=== PATIENT | female | born 1950 | race Caucasian/White ===

== ENCOUNTER 2017-12-13 20:04 | Inpatient (IN) | payer BC, MEDICARE ==
--- NOTE | 2017-12-13 21:16 | ED PDOC ---
Arrival/HPI <Galen Colón - Last Filed: 12/13/17 21:52> - General Historian: Patient <Criselda Vazquez - Last Filed: 12/14/17 02:01> - General Chief Complaint: Body Fluid Exposure Time Seen by Provider: 12/13/17 20:33 - History of Present Illness Narrative History of Present Illness (Text): 12/13/17 21:04 67yo female with PMHx of diabetes present with one week history generalized body aches, generalize weakness, headache, subjective fever, nonproductive cough. Notes that she took Theraflu yesterday and today. She denies nausea, vomiting, diarrhea, abdominal pain, chest pain, SOB, diaphoresis, urinary symptoms, sore throat, neck pain, sick contact, travel. (Criselda Vazquez) Past Medical History - Provider Review Nursing Documentation Reviewed: Yes - Infectious Disease Hx of Infectious Diseases: None - Tetanus Immunization Tetanus Immunization: Unknown - Cardiac Hx Cardiac Disorders: Yes Other/Comment: "weak heart muscle" as per dr owens - Pulmonary Hx Respiratory Disorders: No - Neurological Hx Neurological Disorder: Yes (diabetic neuropathy) - HEENT Hx HEENT Disorder: No - Renal Hx Renal Disorder: No - Endocrine/Metabolic Hx Endocrine Disorders: Yes Hx Diabetes Mellitus Type 2: Yes (iddm) - Hematological/Oncological Hx Blood Transfusions: No Hx Blood Transfusion Reaction: (NA) - Integumentary Hx Dermatological Disorder: No - Musculoskeletal/Rheumatological Hx Musculoskeletal Disorders: No - Gastrointestinal Hx Gastrointestinal Disorders: Yes Hx Colitis: Yes Other/Comment: endoscopy with colon biopsy, hemorrhoids - Genitourinary/Gynecological Hx Genitourinary Disorders: No - Psychiatric Hx Psychophysiologic Disorder: No Hx Substance Use: No - Surgical History Hx Section: Yes - Anesthesia Hx Anesthesia Reactions: No Hx Malignant Hyperthermia: No - Suicidal Assessment Feels Threatened In Home Enviroment: No <Criselda Vazquez - Last Filed: 12/14/17 02:01> Family/Social History - Physician Review Nursing Documentation Reviewed: Yes Family/Social History: Unknown Family HX Smoking Status: Never Smoked Hx Alcohol Use: No Hx Substance Use: No Hx Substance Use Treatment: No <Criselda Vazquez A - Last Filed: 12/14/17 02:01> Allergies/Home Meds <Galen Colón - Last Filed: 12/13/17 21:52> <[email or web address] A - Last Filed: 12/14/17 02:01> Allergies/Adverse Reactions: Allergies Penicillins Allergy (Verified 12/13/17 20:21) RASH vancomycin Allergy (Verified 12/13/17 20:21) RASH levofloxacin [From Levaquin] Adverse Reaction (Verified 12/13/17 20:21) SHORTNESS OF BREATH Home Medications: Home Meds Medication Instructions Recorded Confirmed MetFORMIN [glucOPHAGE] 1,000 mg PO BID 12/13/17 12/13/17 Review of Systems - Physician Review All systems were reviewed & negative as marked: Yes - Review of Systems Constitutional: Fatigue, Fevers Eyes: Normal ENT: Normal Respiratory: Cough. absent: Sputum, Wheezing Cardiovascular: Normal Gastrointestinal: Normal Genitourinary Female: Normal Musculoskeletal: Normal Skin: Normal Neurological: Normal Endocrine: Normal Hemo/Lymphatic: Normal Psychiatric: Normal <[email or web address] A - Last Filed: 12/14/17 02:01> Physical Exam Vital Signs Reviewed: Yes Temperature: Afebrile Blood Pressure: Normal Pulse: Regular Respiratory Rate: Normal Appearance: Positive for: Well-Appearing, Non-Toxic, Comfortable Pain Distress: None Mental Status: Positive for: Alert and Oriented X 3 - Systems Exam Head: Present: Atraumatic, Normocephalic Pupils: Present: PERRL Extroacular Muscles: Present: EOMI Conjunctiva: Present: Normal Mouth: Present: Moist Mucous Membranes Neck: Present: Normal Range of Motion Respiratory/Chest: Present: Clear to Auscultation, Good Air Exchange. No: Respiratory Distress, Accessory Muscle Use, Wheezes, Decreased Breath Sounds, Rales, Retracting, Rhonchi Cardiovascular: Present: Regular Rate and Rhythm, Normal S1, S2. No: Murmurs Abdomen: Present: Normal Bowel Sounds. No: Tenderness, Distention, Peritoneal Signs Back: Present: Normal Inspection Upper Extremity: Present: Normal Inspection. No: Cyanosis, Edema Lower Extremity: Present: Normal Inspection. No: Edema Neurological: Present: GCS=15, CN II-XII Intact, Speech Normal Skin: Present: Warm, Dry, Normal Color. No: Rashes Psychiatric: Present: Alert, Oriented x 3, Normal Insight, Normal Concentration <DiruGoogle A - Last Filed: 12/14/17 02:01> Vital Signs Temp Pulse Resp BP Pulse Ox 12/14/17 01:25 98.1 F 92 H 22 119/67 96 12/14/17 00:25 97.9 F 93 H 16 120/65 96 12/14/17 00:05 91 H 18 120/65 98 12/13/17 23:47 93 H 18 125/78 98 12/13/17 20:22 97.7 F 89 18 124/61 97 Medical Decision Making <Galen Colón - Last Filed: 12/13/17 21:52> <Criselda Vazquez - Last Filed: 12/14/17 02:01> ED Course and Treatment: 12/14/17 01:55 PT in ED for stated history. She was in DKA. Calculated AG is 12. Leukocytosis was noted. Hyponatremia, hyperkalemia and hyperglycemia noted. PT was hydrated with NS. She have no EKG changes and kayexlate and insulin was given. Hyperkalemia was likely secondary to pt's DKA. EKG NSR # 88bpm CXR NAD Blood culture, urine culture pending PT was seen by the bedside by the intensivit and he accepted pt for admission to the ICU HE will start pt on insulin drip Dr. Colón DC with Dr. Proctor and pt was admitted Result and plan was DW the pt and she agreed. (Criselda Vazquez) - Lab Interpretations Lab Results: 12/13/17 21:26 12/13/17 21:26 Lab Results 12/14/17 00:38: POC Glucose (mg/dL) 258 H 12/13/17 23:30: POC Glucose (mg/dL) 279 H 12/13/17 22:49: pO2 25 L, VBG pH 7.09 L*, VBG pCO2 39.0 L, VBG HCO3 11.8 L, VBG Total CO2 13.0 L, VBG O2 Sat (Calc) 54.6, VBG Base Excess -17.3 L, VBG Potassium 6.8 H*, Lactate 1.6, FiO2 21.0, Sodium 128.0 L, Chloride 92.0 L, Venous Blood Potassium 6.8 H* 12/13/17 21:26: Sodium 128 L, Potassium 6.1 H* D, Chloride 98, Carbon Dioxide 11 L, Anion Gap 25 H, BUN 21, Creatinine 0.8, Est GFR ( Amer) > 60, Est GFR (Non-Af Amer) > 60, Random Glucose 485 H* D, Calcium 9.5, Magnesium 2.4 H, Total Bilirubin 0.7, AST 18, ALT 22, Alkaline Phosphatase 89, Lactate Dehydrogenase 393, Total Creatine Kinase 73, Troponin I < 0.01, Total Protein 7.7, Albumin 4.1, Globulin 3.7, Albumin/Globulin Ratio 1.1, Lipase 54 12/13/17 21:26: PT 10.9, INR 0.96, APTT 22.4 L 12/13/17 21:26: WBC 15.3 H D, RBC 4.72, Hgb 13.7, Hct 41.2, MCV 87.3, MCH 29.0, MCHC 33.3, RDW 12.5, Plt Count 260, MPV 10.1, Gran % 84.9 H, Lymph % (Auto) 7.0 L, [place] % (Auto) 8.0 H, Eos % (Auto) 0.0 L, Baso % (Auto) 0.1, Gran # 13.00 H, Lymph # 1.1 L, [place] # 1.2 H, Eos # 0.0, Baso # 0.02 12/13/17 20:20: Influenza Typ A,B (EIA) Negative for flu a/b - RAD Interpretation Radiology Orders: 12/13/17 20:42 CHEST PORTABLE [RAD] Stat 12/13/17 23:52 HEAD W/O CONTRAST [CT] Stat - Medication Orders Current Medication Orders: Acetaminophen (Tylenol 325mg Tab) 650 mg PO Q4 PRN PRN Reason: Pain, severe (8-10) Aspirin (Aspirin Chewable) 81 mg PO DAILY [facility] Heparin Sodium (Porcine) (Heparin) 5,000 units SC Q12H DANIELA PRN Reason: Protocol Insulin Human Regular 100 (units/ Sodium Chloride) 100 mls @ 5 mls/hr IV .Q20H PRN; Protocol; 5 UNITS/HR PRN Reason: TITRATE PER MD ORDER Last Titration: 12/14/17 01:39 Dose: 2 units/hr, 2 mls/hr Titration Intervention Document 12/14/17 01:39 DORA (Rec: 12/14/17 01:39 DORA [id number]) Titration Intake Titration Intake 0 Cumulative Intake 10 Cumulative Intake (Rx) 10 Waste Amount 0 Container Volume 90 Titration Dosing Titration Dose 2 IV Rate 2 Intake/Decrease Decreased Cumulative Dose 10 Sodium Chloride (Sodium Chloride 0.9%) 1,000 mls @ 200 mls/hr IV .Q5H [facility] Last Admin: 12/14/17 00:40 Dose: 200 mls/hr eMAR Start Stop Document 12/14/17 00:40 JOL (Rec: 12/14/17 01:10 [id number] Intravenous Solution Start Date 12/14/17 Start Time 00:40 Pantoprazole Sodium (Protonix Inj) 40 mg IVP DAILY DANIELA Senna/Docusate Sodium (Senokot S 50 Mg-8.6 Mg) 1 tab PO Q8 PRN PRN Reason: Constipation Discontinued Medications Acetaminophen (Tylenol 325mg Tab) 650 mg PO STAT STA Stop: 12/13/17 22:21 Last Admin: 12/13/17 22:41 Dose: 650 mg [facility] Pain/Vitals Document 12/13/17 22:41 JOL (Rec: 12/13/17 22:41 [id number] Pain Reassessment Is This A Pain ReAssessment? No Sleep Is patient sleeping during reassessment? No Presence of Pain Presence of Pain Yes Pain Scale Used Pain Scale Used Numeric Location Pain Location Body Site Generalized Re-Assess: [facility] Pain/Vitals Document 12/13/17 23:41 JOL (Rec: 12/14/17 01:11 [id number] Pain Reassessment Is This A Pain ReAssessment? Yes Sleep Is patient sleeping during reassessment? No Presence of Pain Presence of Pain No Sodium Chloride (Sodium Chloride 0.9%) 1,000 mls @ 999 mls/hr IV .Q1H1M STA Stop: 12/13/17 23:06 Last Admin: 12/13/17 22:40 Dose: 999 mls/hr eMAR Start Stop Document 12/13/17 22:40 JOL (Rec: 12/13/17 22:40 [id number] Intravenous Solution Start Date 12/13/17 Start Time 22:40 End Date 12/13/17 End time 23:41 Total Infusion Time 61 Sodium Chloride (Sodium Chloride 0.9%) 1,000 mls @ 150 mls/hr IV .Q6H40M DANIELA Sodium Chloride (Sodium Chloride 0.9%) 1,000 mls @ 999 mls/hr IV .Q1H1M STA Stop: 12/14/17 00:22 Last Admin: 12/13/17 23:25 Dose: 999 mls/hr eMAR Start Stop Document 12/13/17 23:25 JOL (Rec: 12/14/17 01:10 [id number] Intravenous Solution Start Date 12/13/17 Start Time 23:25 End Date 12/14/17 End time 00:26 Total Infusion Time 61 Insulin Human Regular (Humulin R Med) 10 units IV ONCE STA PRN Reason: Protocol Stop: 12/13/17 22:16 Last Admin: 12/13/17 22:40 Dose: 10 units eMAR Start Stop Document 12/13/17 22:40 JOL (Rec: 12/13/17 22:41 [id number]) Intravenous Solution Start Date 12/13/17 Start Time 22:41 MAR Blood Glucose Document 12/13/17 22:40 JOL (Rec: 12/13/17 22:41 [id number]) Blood Glucose Finger Stick Blood Glucose (70-120) 485 Sodium Polystyrene Sulfonate (Kayexalate Susp) 30 gm PO STAT STA Stop: 12/13/17 22:10 Last Admin: 12/13/17 22:40 Dose: 30 gm - PA / INSURANCE SALES EXECUTIVE / Resident Statement RACHELL has reviewed & agrees with the documentation as recorded. RACHELL has examined the patient and agrees with the treatment plan. <Galen Colón - Last Filed: 12/13/17 21:52> Disposition/Present on Arrival <Galen Colón - Last Filed: 12/13/17 21:52> - Present on Arrival Any Indicators Present on Arrival: No History of DVT/PE: No History of Uncontrolled Diabetes: Yes Urinary Catheter: No History of Decub. Ulcer: No History Surgical Site Infection Following: None - Disposition Have Diagnosis and Disposition been Completed?: Yes Disposition Time: 23:00 Patient Plan: Admission <Criselda Vazquez - Last Filed: 12/14/17 02:01> - Disposition Diagnosis: DKA (diabetic ketoacidosis), Hyperglycemia, Leukocytosis, Hyponatremia Disposition: HOSPITALIZED Patient Problems: Current Active Problems Problem Status Onset DKA (diabetic ketoacidosis) Acute Hyperglycemia Acute Leukocytosis Acute Condition: FAIR
[2017-12-13 21:50] LABS: BASO # 0.02 [, K/mm3] (0.0-2.0); BASO % 0.1 % (0.0-3.0); GRAN % 84.9 % (50.0-68.0); HEMOGLOBIN 13.7 g/dL (12.0-16.0); LYMPH # 1.1 (1.2-3.4); MEAN CELL VOLUME 87.3 fl (80.0-105.0); MEAN CORPUSCULAR HGB CONC 33.3 g/dl (31.0-37.0); MEAN PLATELET VOLUME 10.1 fl (7.0-11.0); MONO # 1.2 (0.1-0.6); RBC 4.72 [, 10^6/uL] (3.5-6.1); RED CELL DISTRIBUTION WIDTH 12.5 % (11.5-14.5); WHITE BLOOD COUNT 15.3 [, 10^3/ul] (4.5-11.0)
[2017-12-13 21:56] LABS: INR 0.96 (0.93-1.08); PARTIAL THROMBOPLASTIN TIME 22.4 Seconds (25.1-36.5); PROTHROMBIN TIME 10.9 SECONDS (9.4-12.5)
[2017-12-13 22:00] LABS: ALB/GLOB RATIO 1.1 (1.1-1.8); ALBUMIN 4.1 g/dL (3.0-4.8); ALT/SGPT 22 U/L (7-56); AST/SGOT 18 U/L (14-36); BLOOD UREA NITROGEN 21 mg/dL (7-21); CALCIUM 9.5 mg/dL (8.4-10.5); GFR AFRICAN-AMERICAN > 60; GFR NON-AFRICAN AMERICAN > 60; LIPASE 54 U/L (23-300); MAGNESIUM 2.4 mg/dL (1.7-2.2)
[2017-12-13 22:03] LABS: TROPONIN I < 0.01 ng/mL
[2017-12-13] MEDS ORDERED: Sodium Chloride 0.9% 1,000 ML IV STA ×2 (22:06→23:22)
[2017-12-13] MEDS ORDERED: Sod Polystyrene Sulf 15 gm/60 ml Susp PO STA (22:09)
[2017-12-13] MEDS ORDERED: Insulin Reg-MEDIUM-Coverage IV STA (22:15)
[2017-12-13] MEDS ORDERED: Insulin Regular 1 UNITS/0.01 ML ML ONE (22:34)
[2017-12-13] MEDS ORDERED: Sodium Bicarbonate 8.4% 50 MEQ in Dextrose 5% In Water 1,000 ML IV STA (22:36)
[2017-12-13 23:00] LABS: VENOUS BLOOD GAS BASE EXCESS -17.3 mmol/L (0.0-2.0); VENOUS BLOOD GAS PO2 25 mm/Hg (30-55)
[2017-12-13] MEDS ORDERED: Insulin Regular 100 UNITS in Sodium Chloride 0.9% 99 ML IV PRN (23:01)
[2017-12-13 23:03] LABS: VENOUS BLOOD PH 7.09 (7.32-7.43)
[2017-12-13] MEDS ORDERED: Sodium Chloride 0.9% 1,000 ML IV SCH ×2 (23:15→23:17)
--- NOTE | 2017-12-13 23:28 | CP.PCM.HP ---
Past Patient History - Infectious Disease Hx of Infectious Diseases: None - Tetanus Immunizations Tetanus Immunization: Unknown - Past Social History Smoking Status: Never Smoked - CARDIAC Hx Cardiac Disorders: Yes Other/Comment: "weak heart muscle" as per dr owens - PULMONARY Hx Respiratory Disorders: No - NEUROLOGICAL Hx Neurological Disorder: Yes (diabetic neuropathy) - HEENT Hx HEENT Problems: No - RENAL Hx Chronic Kidney Disease: No - ENDOCRINE/METABOLIC Hx Endocrine Disorders: Yes Hx Diabetes Mellitus Type 2: Yes (iddm) - HEMATOLOGICAL/ONCOLOGICAL Hx Blood Transfusions: No Hx Blood Transfusion Reaction: (NA) - INTEGUMENTARY Hx Dermatological Problems: No - MUSCULOSKELETAL/RHEUMATOLOGICAL Hx Musculoskeletal Disorders: No - GASTROINTESTINAL Hx Gastrointestinal Disorders: Yes Hx Colitis: Yes Other/Comment: endoscopy with colon biopsy, hemorrhoids - GENITOURINARY/GYNECOLOGICAL Hx Genitourinary Disorders: No - PSYCHIATRIC Hx Psychophysiologic Disorder: No Hx Substance Use: No - SURGICAL HISTORY Hx Section: Yes - ANESTHESIA Hx Anesthesia Reactions: No Hx Malignant Hyperthermia: No Meds Allergies/Adverse Reactions: Allergies Allergy/AdvReac Type Severity Reaction Status Date / Time Penicillins Allergy RASH Verified 12/13/17 20:21 vancomycin Allergy RASH Verified 12/13/17 20:21 levofloxacin [From Levaquin] AdvReac SHORTNESS Verified 12/13/17 20:21 OF BREATH Results - Vital Signs Recent Vital Signs: Last Vital Signs Temp 97.7 F 12/13/17 20:22 Pulse 89 12/13/17 20:22 Resp 18 12/13/17 20:22 BP 124/61 12/13/17 20:22 Pulse Ox 97 12/13/17 20:22 - Labs Result Diagrams: 12/13/17 21:26 12/13/17 21:26 Labs: Laboratory Results - last 24 hr 12/13/17 12/13/17 12/13/17 20:20 21:26 21:26 WBC 15.3 H D RBC 4.72 Hgb 13.7 Hct 41.2 MCV 87.3 MCH 29.0 MCHC 33.3 RDW 12.5 Plt Count 260 MPV 10.1 Gran % 84.9 H Lymph % (Auto) 7.0 L [place] % (Auto) 8.0 H Eos % (Auto) 0.0 L Baso % (Auto) 0.1 Gran # 13.00 H Lymph # 1.1 L [place] # 1.2 H Eos # 0.0 Baso # 0.02 PT 10.9 INR 0.96 APTT 22.4 L pO2 VBG pH VBG pCO2 VBG HCO3 VBG Total CO2 VBG O2 Sat (Calc) VBG Base Excess VBG Potassium Lactate FiO2 Sodium Potassium Chloride Carbon Dioxide Anion Gap BUN Creatinine Est GFR ( Amer) Est GFR (Non-Af Amer) Random Glucose Calcium Magnesium Total Bilirubin AST ALT Alkaline Phosphatase Lactate Dehydrogenase Total Creatine Kinase Troponin I Total Protein Albumin Globulin Albumin/Globulin Ratio Lipase Venous Blood Potassium Influenza Typ A,B (EIA) Negative for flu a/b 12/13/17 12/13/17 21:26 22:49 WBC RBC Hgb Hct MCV MCH MCHC RDW Plt Count MPV Gran % Lymph % (Auto) [place] % (Auto) Eos % (Auto) Baso % (Auto) Gran # Lymph # [place] # Eos # Baso # PT INR APTT pO2 25 L VBG pH 7.09 L* VBG pCO2 39.0 L VBG HCO3 11.8 L VBG Total CO2 13.0 L VBG O2 Sat (Calc) 54.6 VBG Base Excess -17.3 L VBG Potassium 6.8 H* Lactate 1.6 FiO2 21.0 Sodium 128 L 128.0 L Potassium 6.1 H* D Chloride 98 92.0 L Carbon Dioxide 11 L Anion Gap 25 H BUN 21 Creatinine 0.8 Est GFR ( Amer) > 60 Est GFR (Non-Af Amer) > 60 Random Glucose 485 H* D Calcium 9.5 Magnesium 2.4 H Total Bilirubin 0.7 AST 18 ALT 22 Alkaline Phosphatase 89 Lactate Dehydrogenase 393 Total Creatine Kinase 73 Troponin I < 0.01 Total Protein 7.7 Albumin 4.1 Globulin 3.7 Albumin/Globulin Ratio 1.1 Lipase 54 Venous Blood Potassium 6.8 H* Influenza Typ A,B (EIA)
--- NOTE | 2017-12-13 23:45 | CP.PCM.CON ---
<Hugo Guzman - Last Filed: 12/13/17 23:29> History of Present Illness - History of Present Illness History of Present Illness: ICU Consult Note for Dr. Cleopatra Guzman, PGY-2 IM Consulted for: DKA HPI: This is a 67 yo [place] F with PMH of DM and HLD who presents with complaint of malaise, headache, weakness, constipation, and urinary frequency for 1 week, as well as a syncopal episode at home today. She was found to have blood glucose of 485 and anion gap of 19. As per patient and sons at bedside, patient was at home cooking, and suddenly felt herself sliding to the floor. As per sons, no head trauma. Patient reports having stopped taking her insulin approx 1 month prior, due to it making her sugars run low and making her diaphoretic. When asked how low her sugars went, patient reports around 180's. She continued taking her metformin and januvia, believing it to be enough. Did not discuss with her PMD, as she reports unable to see him recently due to relocating his office. Denies similar episode or symptoms in the past. Also reports episode of emesis today after attempting to drink prune juice to attempt to make herself have a bowel movement (constipated x3-4 days). Otherwise has no appetite, and reports frequent burps and acid reflux symptoms. Denies chest pain, shortness of breath, hematemesis, diarrhea, hematuria, dysuria, focal weakness, or other falls. All other ROS in 12-system review negative. PMH: HLD, DM, "weak heart muscle" as per prior PMD; hx of CAD and medication non -compliance as per charting by PMD (Dr. Proctor) during prior admissions PSH: denies, but hx of noted in charting from prior admissions Family Hx: Diabetes and HLD in multiple 1st degree relatives (both parents, multiple siblings), no reported history of [place] Social Hx: denies tobacco, alcohol, illicits PMD: Dr. Proctor Review of Systems - Review of Systems All systems: reviewed and no additional remarkable complaints except (as per HPI ) Past Patient History - Infectious Disease Hx of Infectious Diseases: None - Tetanus Immunizations Tetanus Immunization: Unknown - Past Social History Smoking Status: Never Smoked - CARDIAC Hx Cardiac Disorders: Yes Other/Comment: "weak heart muscle" as per dr owens - PULMONARY Hx Respiratory Disorders: No - NEUROLOGICAL Hx Neurological Disorder: Yes (diabetic neuropathy) - HEENT Hx HEENT Problems: No - RENAL Hx Chronic Kidney Disease: No - ENDOCRINE/METABOLIC Hx Endocrine Disorders: Yes Hx Diabetes Mellitus Type 2: Yes (iddm) - HEMATOLOGICAL/ONCOLOGICAL Hx Blood Transfusions: No Hx Blood Transfusion Reaction: (NA) - INTEGUMENTARY Hx Dermatological Problems: No - MUSCULOSKELETAL/RHEUMATOLOGICAL Hx Musculoskeletal Disorders: No - GASTROINTESTINAL Hx Gastrointestinal Disorders: Yes Hx Colitis: Yes Other/Comment: endoscopy with colon biopsy, hemorrhoids - GENITOURINARY/GYNECOLOGICAL Hx Genitourinary Disorders: No - PSYCHIATRIC Hx Psychophysiologic Disorder: No Hx Substance Use: No - SURGICAL HISTORY Hx Section: Yes - ANESTHESIA Hx Anesthesia Reactions: No Hx Malignant Hyperthermia: No Meds Allergies/Adverse Reactions: Allergies Allergy/AdvReac Type Severity Reaction Status Date / Time Penicillins Allergy RASH Verified 12/13/17 20:21 vancomycin Allergy RASH Verified 12/13/17 20:21 levofloxacin [From Levaquin] AdvReac SHORTNESS Verified 12/13/17 20:21 OF BREATH - Medications Medications: Current Medications Acetaminophen (Tylenol 325mg Tab) 650 mg PO Q4 PRN PRN Reason: Pain, severe (8-10) Aspirin (Aspirin Chewable) 81 mg PO DAILY [facility] Heparin Sodium (Porcine) (Heparin) 5,000 units SC Q12H DANIELA PRN Reason: Protocol Insulin Human Regular 100 (units/ Sodium Chloride) 100 mls @ 5 mls/hr IV .Q20H PRN; Protocol; 5 UNITS/HR PRN Reason: TITRATE PER MD ORDER Sodium Chloride (Sodium Chloride 0.9%) 1,000 mls @ 200 mls/hr IV .Q5H [facility] Sodium Chloride (Sodium Chloride 0.9%) 1,000 mls @ 999 mls/hr IV .Q1H1M STA Stop: 12/14/17 00:22 Pantoprazole Sodium (Protonix Inj) 40 mg IVP DAILY [facility] Senna/Docusate Sodium (Senokot S 50 Mg-8.6 Mg) 1 tab PO Q8 PRN PRN Reason: Constipation Physical Exam - Constitutional Appears: Non-toxic, No Acute Distress Additional comments: Ill-appearing, fatigued - Head Exam Head Exam: ATRAUMATIC, NORMAL INSPECTION, NORMOCEPHALIC - Eye Exam Eye Exam: EOMI, Normal appearance. absent: Conjunctival injection, Scleral icterus Pupil Exam: absent: Irregular, Unequal - ENT Exam ENT Exam: Mucous Membranes Dry - Neck Exam Neck exam: Positive for: Full Rom, Normal Inspection - Respiratory Exam Respiratory Exam: Clear to Auscultation Bilateral, NORMAL BREATHING PATTERN. absent: Accessory Muscle Use, Chest Wall Tenderness, Decreased Breath Sounds, Rales, Rhonchi, Wheezes - Cardiovascular Exam Cardiovascular Exam: REGULAR RHYTHM, RRR, +S1, +S2. absent: Bradycardia, Tachycardia, Irregular Rhythm, JVD, +S4 - GI/Abdominal Exam GI & Abdominal Exam: Normal Bowel Sounds, Soft, Tenderness (mild tenderness to palpation diffusely). absent: Diminished Bowel Sounds, Distended, Firm, Hyperactive Bowel Sounds, Hypoactive Bowel Sounds, Rigid - Rectal Exam Rectal Exam: Deferred - Extremities Exam Extremities exam: Positive for: normal capillary refill, normal inspection, pedal pulses present. Negative for: calf tenderness, pedal edema, tenderness - Neurological Exam Additional comments: awake and alert, following all commands appropriately, moving all extremities spontaneously motor grossly intact and equal bilaterally - Psychiatric Exam Psychiatric exam: Normal Affect, Normal Mood - Skin Skin Exam: Dry, Intact, Normal Color, Warm Results - Vital Signs Recent Vital Signs: Last Vital Signs Temp 97.7 F 12/13/17 20:22 Pulse 89 12/13/17 20:22 Resp 18 12/13/17 20:22 BP 124/61 12/13/17 20:22 Pulse Ox 97 12/13/17 20:22 - Labs Result Diagrams: 12/13/17 21:26 12/13/17 21:26 Labs: Laboratory Results - last 24 hr 12/13/17 12/13/17 12/13/17 20:20 21:26 21:26 WBC 15.3 H D RBC 4.72 Hgb 13.7 Hct 41.2 MCV 87.3 MCH 29.0 MCHC 33.3 RDW 12.5 Plt Count 260 MPV 10.1 Gran % 84.9 H Lymph % (Auto) 7.0 L Jackson % (Auto) 8.0 H Eos % (Auto) 0.0 L Baso % (Auto) 0.1 Gran # 13.00 H Lymph # 1.1 L Jackson # 1.2 H Eos # 0.0 Baso # 0.02 PT 10.9 INR 0.96 APTT 22.4 L pO2 VBG pH VBG pCO2 VBG HCO3 VBG Total CO2 VBG O2 Sat (Calc) VBG Base Excess VBG Potassium Lactate FiO2 Sodium Potassium Chloride Carbon Dioxide Anion Gap BUN Creatinine Est GFR ( Amer) Est GFR (Non-Af Amer) Random Glucose Calcium Magnesium Total Bilirubin AST ALT Alkaline Phosphatase Lactate Dehydrogenase Total Creatine Kinase Troponin I Total Protein Albumin Globulin Albumin/Globulin Ratio Lipase Venous Blood Potassium Influenza Typ A,B (EIA) Negative for flu a/b 12/13/17 12/13/17 21:26 22:49 WBC RBC Hgb Hct MCV MCH MCHC RDW Plt Count MPV Gran % Lymph % (Auto) Jackson % (Auto) Eos % (Auto) Baso % (Auto) Gran # Lymph # Jackson # Eos # Baso # PT INR APTT pO2 25 L VBG pH 7.09 L* VBG pCO2 39.0 L VBG HCO3 11.8 L VBG Total CO2 13.0 L VBG O2 Sat (Calc) 54.6 VBG Base Excess -17.3 L VBG Potassium 6.8 H* Lactate 1.6 FiO2 21.0 Sodium 128 L 128.0 L Potassium 6.1 H* D Chloride 98 92.0 L Carbon Dioxide 11 L Anion Gap 25 H BUN 21 Creatinine 0.8 Est GFR ( Amer) > 60 Est GFR (Non-Af Amer) > 60 Random Glucose 485 H* D Calcium 9.5 Magnesium 2.4 H Total Bilirubin 0.7 AST 18 ALT 22 Alkaline Phosphatase 89 Lactate Dehydrogenase 393 Total Creatine Kinase 73 Troponin I < 0.01 Total Protein 7.7 Albumin 4.1 Globulin 3.7 Albumin/Globulin Ratio 1.1 Lipase 54 Venous Blood Potassium 6.8 H* Influenza Typ A,B (EIA) Assessment & Plan - Assessment and Plan (Free Text) Assessment: This is a 67 yo [place] F with PMH of DM and HLD who presents with complaint of malaise, headache, weakness, constipation, and urinary frequency for 1 week, as well as a syncopal episode at home today. She is being admitted to the ICU for DKA (secondary to medication non-compliance), and will be started on an insulin drip. Plan: Neuro: -currently awake and alert, but slightly lethagic -syncopal episode earlier likely due to DKA, less likely acute neuro event, but will obtain Head CT to rule out acute event -high fall risk protocol in place -maintain normothermia Pulm -satting well on room air, no indication for supplemental O2 at this time -CXR obtained in ED, no acute infiltrate or effusion noted -maintain SaO2 of at least 92% Cardio: -RRR on exam, borderline tachycardia (high 90's) on bedside monitor during exam -as per prior charting, history of CAD and HLD, prior notes also state patient to be on statin medication; patient states on something for HLD but unable to remember what; will start on high-intensity lipitor while inpatient given cardiac risk -continue daily aspirin 81mg -NPO until DKA resolved and transitioned to subcutaneous insulin, then will start on consistent carb-heart healthy diet -lipid panel ordered, f/u -hyperkalemic to 6.1, but no peaked T waves on EKG; likely due to uncontrolled DM, will improve with insulin tx for DKA; s/p kayexelate 30mg x1 in ED -trop x1 negative -Heparin 5000 units SC q12 for DVT ppx GI: -NPO until DKA resolved -Protonix for GI ppx -emesis and frequent burping likely due to hx GERD and possible gastroparesis due to poorly controlled DM Renal: -urinary frequency and thirst likely due to uncontrolled DM with elevated Blood glucose -Cr 0.8, making clear yellow urine -urinary frequency likely due to elevated blood glucose, but UA and urine cx ordered, f/u -monitor and replete electrolytes as needed Endo: -DKA likely due to insulin non-compliance -TSH and A1c ordered, f/u -starting on insulin drip, aggressive IVF with NS 200cc/hr -monitor and replete electrolytes as needed -BMPs q4 to follow electrolytes/blood glucose/anion gap, will transition to D5 1 /2 NS when blood sugar < 250 and will transition to subq insulin after gap closes ID: -normothermic, lactate within normal limits, but WBCs 15.3 -blood and urine cultures ordered -procal ordered Dispo: ICU for insulin drip for DKA, pending gap closure and transition to subq insulin FEN: NPO, NS 200cc/hr Access: Peripheral IVs Consults: ICU Ppx: Protonix for GI, Heparin SC for DVT Patient seen, reviewed, and discussed with attending, Dr. Whelan. <Cleopatra BOWLES,Quentin - Last Filed: 12/14/17 09:29> Meds - Medications Medications: Current Medications Acetaminophen (Tylenol 325mg Tab) 650 mg PO Q4 PRN PRN Reason: Pain, severe (8-10) Last Admin: 12/14/17 09:18 Dose: 650 mg Aspirin (Aspirin Chewable) 81 mg PO DAILY [facility] Last Admin: 12/14/17 09:18 Dose: 81 mg Atorvastatin Calcium (Lipitor) 40 mg PO DIN [facility] Heparin Sodium (Porcine) (Heparin) 5,000 units SC Q12H DANIELA PRN Reason: Protocol Insulin Human Regular 100 (units/ Sodium Chloride) 100 mls @ 5 mls/hr IV .Q20H PRN; Protocol; 5 UNITS/HR PRN Reason: TITRATE PER MD ORDER Last Titration: 12/14/17 07:45 Dose: 2 units/hr, 2 mls/hr Potassium Chloride/Dextrose/Sod Cl (Potassium Chl 20 Meq In D5-1/2ns) 1,000 mls @ 150 mls/hr IV .Q6H40M [facility] Last Admin: 12/14/17 03:50 Dose: 150 mls/hr Pantoprazole Sodium (Protonix Inj) 40 mg IVP DAILY [facility] Last Admin: 12/14/17 09:18 Dose: 40 mg Senna/Docusate Sodium (Senokot S 50 Mg-8.6 Mg) 1 tab PO Q8 PRN PRN Reason: Constipation Results - Vital Signs Recent Vital Signs: Last Vital Signs Temp 98 F 12/14/17 04:00 Pulse 99 H 12/14/17 08:28 Resp 16 12/14/17 08:28 BP 127/70 12/14/17 08:30 Pulse Ox 99 12/14/17 08:28 - Labs Result Diagrams: 12/13/17 21:26 12/14/17 08:45 Labs: Laboratory Results - last 24 hr 12/14/17 12/14/17 12/14/17 01:32 02:15 02:15 pO2 42 VBG pH 7.20 L VBG pCO2 35.0 L VBG HCO3 13.7 L VBG Total CO2 14.8 L VBG O2 Sat (Calc) 83.0 H VBG Base Excess -13.4 L VBG Potassium 3.7 Sodium 136 133.0 Chloride 106 102.0 Glucose 230 H Lactate 1.0 FiO2 21.0 Potassium 3.9 Carbon Dioxide 14 L Anion Gap 19 BUN 17 Creatinine 0.6 L Est GFR ( Amer) > 60 Est GFR (Non-Af Amer) > 60 POC Glucose (mg/dL) 211 H Random Glucose 223 H Calcium 8.7 Phosphorus 2.3 L Magnesium 2.2 Troponin I Triglycerides Cholesterol LDL Cholesterol Direct HDL Cholesterol TSH 3rd Generation Venous Blood Potassium 3.7 12/14/17 12/14/17 12/14/17 02:15 03:13 03:59 pO2 VBG pH VBG pCO2 VBG HCO3 VBG Total CO2 VBG O2 Sat (Calc) VBG Base Excess VBG Potassium Sodium Chloride Glucose Lactate FiO2 Potassium Carbon Dioxide Anion Gap BUN Creatinine Est GFR ( Amer) Est GFR (Non-Af Amer) POC Glucose (mg/dL) 162 H 146 H Random Glucose Calcium Phosphorus Magnesium Troponin I Triglycerides Cholesterol LDL Cholesterol Direct HDL Cholesterol TSH 3rd Generation 0.38 L Venous Blood Potassium 12/14/17 12/14/17 12/14/17 05:03 06:20 07:43 pO2 VBG pH VBG pCO2 VBG HCO3 VBG Total CO2 VBG O2 Sat (Calc) VBG Base Excess VBG Potassium Sodium Chloride Glucose Lactate FiO2 Potassium Carbon Dioxide Anion Gap BUN Creatinine Est GFR ( Amer) Est GFR (Non-Af Amer) POC Glucose (mg/dL) 129 H 173 H 200 H Random Glucose Calcium Phosphorus Magnesium Troponin I Triglycerides Cholesterol LDL Cholesterol Direct HDL Cholesterol TSH 3rd Generation Venous Blood Potassium 12/14/17 12/14/17 12/14/17 08:15 08:45 08:45 pO2 57 H VBG pH 7.18 L* VBG pCO2 42.0 VBG HCO3 15.7 L VBG Total CO2 17.0 L VBG O2 Sat (Calc) 91.8 H VBG Base Excess -12.2 L VBG Potassium 4.1 Sodium 135 135.0 Chloride 106 102.0 Glucose 269 H Lactate 0.9 FiO2 21.0 Potassium 4.5 Carbon Dioxide 16 L Anion Gap 17 BUN 12 Creatinine 0.5 L Est GFR ( Amer) > 60 Est GFR (Non-Af Amer) > 60 POC Glucose (mg/dL) 221 H Random Glucose 259 H Calcium 8.7 Phosphorus 2.6 Magnesium 2.1 Troponin I < 0.01 Triglycerides 194 H Cholesterol 192 LDL Cholesterol Direct 119 HDL Cholesterol 38 TSH 3rd Generation Venous Blood Potassium 4.1 Attending/Attestation - Attestation I have personally seen and examined this patient.: Yes I have fully participated in the care of the patient.: Yes I have reviewed all pertinent clinical information: Yes Notes (Text): -I agree with the above ICU consult note completed by the resident physician with the following additions and/or changes: -The patient is a 67 year old woman with a history of IDDM, CAD and DL, who is being admitted to the ICU for DKA due to Insulin non-compliance (for past 1 month). She will be started on Insulin drip and aggressive IVFs and kept NPO. Of note, her initial serum potassium is elevated at 6.1 (without associated EKG s changes), which should likely normalize with Insulin drip. Will monitor serial BMPs, Mag, Phos and VBGs Q4hrs.
--- NOTE | 2017-12-14 01:08 | CT ---
EXAM: CT Head Without Intravenous Contrast EXAM DATE/TIME: 12/13/2017 11:52 PM CLINICAL HISTORY: 67 years old, female; Signs and symptoms; Dizziness; Additional info: Syncopal episode TECHNIQUE: Axial computed tomography images of the head/brain without intravenous contrast. All CT scans at this facility use one or more dose reduction techniques, viz.: automated exposure control; ma/kV adjustment per patient size (including targeted exams where dose is matched to indication; i.e. head); or iterative reconstruction technique. Coronal and sagittal reformatted images were created and reviewed. COMPARISON: No relevant prior studies available. FINDINGS: Mild atrophy and mild chronic small vessel ischemic disease. No intracranial hemorrhage. No intracranial edema. No evidence of infarct. There is very minimal mucosal thickening of the ethmoid sinuses, left sphenoid sinus, right maxillary sinus that could represent early developing acute sinusitis. Clinical correlation recommended. IMPRESSION: Mild sinus disease as above.
[2017-12-14 02:29] LABS: VENOUS BLOOD GAS BASE EXCESS -13.4 mmol/L (0.0-2.0); VENOUS BLOOD GAS PO2 42 mm/Hg (30-55)
[2017-12-14 02:47] LABS: BLOOD UREA NITROGEN 17 mg/dL (7-21); CALCIUM 8.7 mg/dL (8.4-10.5); GFR AFRICAN-AMERICAN > 60; GFR NON-AFRICAN AMERICAN > 60; MAGNESIUM 2.2 mg/dL (1.7-2.2)
[2017-12-14] MEDS ORDERED: Potassium Phosphate 15 MMOLE in Dextrose 5% In Water 250 ML IVPB ONE (02:51)
[2017-12-14] MEDS ORDERED: Potassium Ch 20mEq in D5-1/2NS 1,000 ML IV SCH (03:00)
[2017-12-14 03:26] VITALS: BMI 25.6
--- NOTE | 2017-12-14 08:32 | RAD ---
HISTORY: cough COMPARISON: 04/19/2015 FINDINGS: LUNGS: No active pulmonary disease. PLEURA: No significant pleural effusion identified, no pneumothorax apparent. CARDIOVASCULAR: Normal. OSSEOUS STRUCTURES: No significant abnormalities. VISUALIZED UPPER ABDOMEN: Normal. OTHER FINDINGS: None. IMPRESSION: No active disease.
[2017-12-14 08:56] LABS: VENOUS BLOOD GAS BASE EXCESS -12.2 mmol/L (0.0-2.0); VENOUS BLOOD GAS PO2 57 mm/Hg (30-55); VENOUS BLOOD PH 7.18 (7.32-7.43)
[2017-12-14 09:04] LABS: BLOOD UREA NITROGEN 12 mg/dL (7-21); CALCIUM 8.7 mg/dL (8.4-10.5); GFR AFRICAN-AMERICAN > 60; GFR NON-AFRICAN AMERICAN > 60; HDL CHOLESTEROL 38 mg/dL (29-60); MAGNESIUM 2.1 mg/dL (1.7-2.2)
[2017-12-14 09:11] LABS: LDL CHOLESTEROL 119 mg/dL (0-129); TROPONIN I < 0.01 ng/mL
[2017-12-14] MEDS: Dextrose 5%/0.45% NS 1,000 ML IV SCH ×2 (11:55→17:53)
--- NOTE | 2017-12-14 13:21 | PN ---
DATE: 12/14/2017 MEDICAL DOCTOR MD/MEDICAL DIRECTOR NOTE SUBJECTIVE: The patient is resting in bed. She states that she is having trouble sleeping because she is getting finger sticks too frequently. No complaints of nauseousness or vomiting this morning. No severe abdominal pain. No diarrhea. No shortness of breath, cough, wheezing or chest congestion. She is still on IV fluids and insulin drip and blood sugars are being monitored closely. PHYSICAL EXAMINATION: VITAL SIGNS: Note that her temperature is 98, her pulse is 99, respirations are 16, and BP is 127/70. SKIN: Warm and dry. HEENT: Head is atraumatic, normocephalic. Eyes are reactive to light. Ears, nose, and throat seemed to be within normal limits. NECK: Supple. No JVD. No thyroid enlargement, no lymph nodes. HEART: Regular rate and rhythm. Normal S1 and S2. LUNGS: Reveal good breath sounds bilaterally. ABDOMEN: Soft. Decreased bowel sounds. GENITALIA AND RECTAL: Deferred. MUSCULOSKELETAL: No joint deformities. EXTREMITIES: Reveal trace lower extremity edema. NEUROLOGIC: She seemed to be grossly intact. LABORATORY DATA: As far as her laboratories are concerned; her white count is 15.3, hemoglobin is 13.7, and hematocrit is 41.2 with platelets of 260,000. Venous blood gas reveals pH of 7.18, pCO2 of 42, and pO2 of 57. The patient's sodium is 135, potassium is 4.5, chloride is 106, CO2 of 16 with BUN of 12, creatinine of 0.5, and glucose of 259. IMPRESSION: This patient has diabetic ketoacidosis with severe metabolic acidosis and history of coronary artery disease as well as noted that she had stopped taking her insulin for approximately 1 month. PLAN: We will continue with the IV fluids. Continue to monitor her finger sticks closely and continue with the IV insulin drip. The patient is on heparin subcu and we will continue with Protonix as well as Tylenol for any pain or headaches. We will continue to treat aggressively along with the other consultants and primary care doctor. Gokul Piedra MD
[2017-12-14 13:24] LABS: BASO # 0.01 [, K/mm3] (0.0-2.0); BASO % 0.1 % (0.0-3.0); GRAN # 10.61 (1.4-6.5); GRAN % 85.8 % (50.0-68.0); HEMOGLOBIN 11.6 g/dL (12.0-16.0); LYMPH # 0.5 (1.2-3.4); LYMPH % 3.7 % (22.0-35.0); MEAN CELL VOLUME 85.2 fl (80.0-105.0); MEAN CORPUSCULAR HEMOGLOBIN 28.6 pg (25.0-35.0); MEAN CORPUSCULAR HGB CONC 33.6 g/dl (31.0-37.0); MEAN PLATELET VOLUME 9.6 fl (7.0-11.0); MONO # 1.3 (0.1-0.6); MONO % 10.4 % (1.0-6.0); PLATELET COUNT 201 [, 10^3/uL] (120.0-450.0); RBC 4.05 [, 10^6/uL] (3.5-6.1); RED CELL DISTRIBUTION WIDTH 12.6 % (11.5-14.5); WHITE BLOOD COUNT 12.4 [, 10^3/ul] (4.5-11.0)
[2017-12-14 13:39] LABS: URINE BILIRUBIN NEGATIVE (NEGATIVE); URINE BLOOD SMALL (NEGATIVE); URINE GLUCOSE (UA) >=1000 mg/dL (NEGATIVE); URINE LEUKOCYTE ESTERASE NEGATIVE Leu/uL (NEGATIVE); URINE NITRATE POSITIVE (NEGATIVE); URINE PROTEIN TRACE mg/dL (<30 mg/dL); URINE UROBILINOGEN 0.2 E.U./dL (<1 E.U./dL)
[2017-12-14 13:40] LABS: BLOOD UREA NITROGEN 11 mg/dL (7-21); CALCIUM 8.2 mg/dL (8.4-10.5); GFR AFRICAN-AMERICAN > 60; GFR NON-AFRICAN AMERICAN > 60
[2017-12-14 13:54] LABS: URINE APPEARANCE SLIGHT-CLOUDY (CLEAR); URINE COLOR YELLOW (YELLOW)
[2017-12-14 13:55] LABS: URINE BACTERIA MANY (NEG)
[2017-12-14 14:04] LABS: BAND 4 % (0-2); LYMPHOCYTE 4 % (22.0-35.0); MONOCYTE 11 % (1.0-6.0); NEUTROPHIL 81 % (50.0-70.0); PLATELET ESTIMATE NORMAL (NORMAL)
--- NOTE | 2017-12-14 15:40 | CARD ---
APPROVED REPORT EKG Measurement Heart [id number] <Conclusion> Normal sinus rhythm Normal ECG
[2017-12-14] MEDS ORDERED: Azithromycin 500 MG in Sodium Chloride 0.9% 250 ML IVPB SCH (16:30)
[2017-12-14] MEDS ORDERED: Azithromycin 500MG/NS 250ml 500 MG/250 ML BAG IVPB ONE (17:00)
[2017-12-14] MEDS ORDERED: Sucralfate 1 gm/10 ml Oral Susp UD PO ONE (20:33)
[2017-12-14 21:40] LABS: BLOOD UREA NITROGEN 9 mg/dL (7-21); CALCIUM 9.1 mg/dL (8.4-10.5); GFR AFRICAN-AMERICAN > 60; GFR NON-AFRICAN AMERICAN > 60
[2017-12-14] MEDS ORDERED: Insulin Detemir 100 units/ml Vial (Levemir) SC ONE (22:33)
[2017-12-15] MEDS ORDERED: Insulin Regular 1 UNITS/0.01 ML ML SC ONE (03:30)
[2017-12-15 06:17] LABS: ALB/GLOB RATIO 0.9 (1.1-1.8); ALBUMIN 3.3 g/dL (3.0-4.8); ALT/SGPT 23 U/L (7-56); AST/SGOT 15 U/L (14-36); BLOOD UREA NITROGEN 7 mg/dL (7-21); CALCIUM 8.8 mg/dL (8.4-10.5); GFR AFRICAN-AMERICAN > 60; GFR NON-AFRICAN AMERICAN > 60; HDL CHOLESTEROL 38 mg/dL (29-60)
[2017-12-15 06:23] LABS: IRON 27 ug/dL (45-180); LDL CHOLESTEROL 107 mg/dL (0-129)
[2017-12-15 06:33] LABS: TOTAL IRON BINDING CAPACITY 240 ug/dL (265-497)
[2017-12-15 06:38] LABS: % IRON SATURATION 11 % (20-55)
[2017-12-15 06:42] LABS: HEMOGLOBIN 12.5 g/dL (12.0-16.0); MEAN CELL VOLUME 83.3 fl (80.0-105.0); MEAN CORPUSCULAR HEMOGLOBIN 28.6 pg (25.0-35.0); MEAN CORPUSCULAR HGB CONC 34.3 g/dl (31.0-37.0); RBC 4.37 [, 10^6/uL] (3.5-6.1); RED CELL DISTRIBUTION WIDTH 12.3 % (11.5-14.5); WHITE BLOOD COUNT 9.1 [, 10^3/ul] (4.5-11.0)
[2017-12-15 06:43] LABS: MEAN PLATELET VOLUME 10.2 fl (7.0-11.0)
[2017-12-15] MEDS ORDERED: Potassium Chloride 20 mEq ER Tab PO ONE (08:28)
[2017-12-15] MEDS: Insulin Regular 1 UNITS/0.01 ML ML SC SCH ×2 (08:53→12:20)
[2017-12-15] MEDS: Insulin Lispro (humaLOG) LOW Coverage SC SCH ×4 (08:54→22:41)
[2017-12-15] MEDS ORDERED: Azithromycin 500MG/NS 250ml 500 MG/250 ML BAG IVPB SCH (10:00)
--- NOTE | 2017-12-15 12:56 | PN ---
DATE: 12/15/2017 WEIGHT LOSS SALES CONSULTANT NOTE SUBJECTIVE: The patient is resting in the chair and no complaints of shortness of breath, cough, wheezing, chest congestion. The patient did eat breakfast this morning she is off the insulin drip and her anion gap is closed. She is scheduled for transfer to the floor. PHYSICAL EXAMINATION: VITAL SIGNS: Temperature is 99, pulse is 107, respirations are 16 and BP is 134/78. SKIN: Warm and dry. HEENT: Head: Atraumatic, normocephalic. Eyes reactive to light. Ears, nose and throat seem to be within normal limits. NECK: Supple. No JVD. No thyroid enlargement or lymph nodes. HEART: Has regular rate and rhythm. Normal S1, S2, but mildly tachycardic. LUNGS: Reveal good breath sounds bilaterally. ABDOMEN: Soft, nontender. Normal bowel sounds. No organomegaly noted. GENITALIA: Deferred. RECTAL: Deferred. MUSCULOSKELETAL: No joint deformities. EXTREMITIES: Reveal trace lower extremity edema. NEUROLOGICAL: She seemed to be grossly intact. LABORATORY DATA: As far as her laboratories are concerned, white count is 9.1, hemoglobin is 12.5, hematocrit 36.4 with platelets of 214,000. Her sodium is 135, potassium 3.2, chloride 105, CO2 of 20, BUN of 7, creatinine of 0.5 and glucose of 192. IMPRESSION: The patient has a diabetic ketoacidosis and at this point, her anion gap is closed and is noted to have long history of diabetes. She has coronary artery disease as well. PLAN: We will continue with IV fluids. Continue with subcu heparin and put the patient back on her usual insulin and diabetic medication dose. Will follow electrolytes closely, and she is scheduled for transfer to the floor. Gokul Piedra MD
[2017-12-15] MEDS: Potassium Chloride 20 MEQ in Dextrose 5%/0.45% NS 1,000 ML IV SCH ×3 (17:15→22:43)
[2017-12-15] MEDS: Insulin Lispro 1 UNITS/0.01 ML SC SCH (17:17)
[2017-12-15 17:34] LABS: FOLATE 6.9 ng/mL
[2017-12-15] MEDS ORDERED: Insulin Detemir 100 units/ml Vial (Levemir) SC SCH (22:00)
--- NOTE | 2017-12-15 22:46 | PN ---
DATE: The patient is a 67-year-old female. SUBJECTIVE: The patient seen and examined on the bedside, sitting on the chair, did her lunch, feeling better. According to the nursing staff, the patient was found on the floor. According to the patient, she just slipped when she was on her bed. No shortness of breath. No coughing. No wheezing. No chest congestion. No fever. No chills. Anion gap is closed. The patient is scheduled to the floor. Today looks better. PHYSICAL EXAMINATION: VITAL SIGNS: Temperature 99, pulse 107, respiratory rate 16 and blood pressure 135/78. HEENT: Head; normocephalic and atraumatic. Eyes; PERRLA. Extraocular muscles intact. Conjunctivae clear. Nose patent. Mucous membranes moist. NECK: Supple. No carotid bruits, JVD or thyromegaly. CHEST: Bilaterally symmetrical. HEART: S1 and S2 positive. LUNGS: Clear to auscultation. ABDOMEN: Soft. Bowel sounds present. No organomegaly. EXTREMITIES: No edema. No cyanosis. NEUROLOGIC: The patient is awake and alert. Moving all four extremities. No focal deficits. LABORATORY DATA: White blood cell 9.4, hemoglobin 12.5, hematocrit 36.4 and platelets 214,000. Sodium 135, potassium 3.2, BUN 7, creatinine 0.5 and glucose 192. ASSESSMENT AND PLAN: Ms. Harmony Sequeira is a 67-year-old with history of insulin-dependent diabetes mellitus, very noncompliant, came with diabetic ketoacidosis. Her anion gap is closed. History of coronary artery disease. We will continue IV fluids. Continue subcutaneous heparin. Insulin stopped. Appreciated Dr. Gokul Piedra's input. Discussion done with nursing staff. The patient has history of hypercholesterolemia, constipation, recurrent urinary tract infection, history of syncopal episode. According to the patient, she had weak heart muscles. History of section. We will continue present treatment, history of hyperkalemia without electrocardiogram abnormalities. We will repeat electrolytes. Came with leukocytosis, now improved; has anemia, now improved; hypokalemia, improved; iron deficiency; hypertriglyceridemia; proteinuria; hematuria; urinary tract infection. We will follow up. Ramya Proctor MD MTDD
--- NOTE | 2017-12-16 02:16 | CON ---
DATE: 12/15/2017 PULMONARY CRITICAL CARE CONSULT REFERRING PHYSICIAN: Dr. Proctor. REASON FOR CONSULTATION: Cough, shortness of breath, admitted with DKA. HISTORY OF PRESENT ILLNESS: This is a 67-year-old female with known history of diabetes, hyperlipidemia presented to Emergency Room with malaise headache, fever, urinary frequency, questionable syncopal episode at home, also noncompliant with her diabetic medication, found to be in DKA, seen by [employer]st, was admitted to ICU, treated with insulin and IV fluids. Presently sleepy and arousable, short of breath, exertion. No chest pain. No nausea, no vomiting, no diarrhea, leg pain or leg swelling. PAST MEDICAL HISTORY: Diabetes, hyperlipidemia, also claim has a history of cardiomyopathy, coronary artery disease. SOCIAL HISTORY: Denies smoking or alcohol use. ALLERGIES: ALLERGY TO PENICILLIN, VANCOMYCIN, AND LEVAQUIN. MEDICATIONS: She is on aspirin 81 mg daily, heparin 5000 subcu q. 12 hours, insulin coverage, Levemir 20 units subcu daily, Lipitor 40 mg daily, potassium with IV fluids 150 mL per hour, Protonix 40 mg daily, TriCor 145 mg daily, Zithromax 500 mg daily, and Zofran p.r.n. basis. REVIEW OF SYSTEMS: Presently, there is no headache, no rhinitis, short of breath, or exertion. No chest pain. No nausea, no vomiting. No diarrhea, dysuria, or leg pain. PHYSICAL EXAMINATION: GENERAL: Lying in the bed, in no acute distress. VITAL SIGNS: Temperature is 98, heart rate is 91, respiratory rate is 20, blood pressure 127/75, pulse ox is 92% on nasal cannula. HEENT: Moist mucous membranes. Crowded airway. NECK: Supple. No JVD. LUNGS: Has a fair airflow with rhonchi. HEART: S1 and S2. ABDOMEN: Soft, nontender, no organomegaly. EXTREMITIES: There is no edema. NEUROLOGIC: Awake, sleepy, and arousable. LABORATORY DATA: Shows hemoglobin 12.5 hematocrit 36.4, WBC 9.1, platelet is 214. Blood gas done yesterday shows pH 7.18, PCO2 is 42, O2 57. Sodium 135, potassium 3.2, chloride 105, bicarbonate 20, BUN 7, creatinine 0.5, glucose 207, calcium 8.8. Iron is 27, TIBC 240. AST 15, ALT 23, alkaline phosphatase is 73, albumin 3.3, cholesterol 182, folate is 69, vitamin B12 is more than 1000, TSH 1.14. Urinalysis shows wbc 10 to 15, rbc 1 to 3. Influenza A and B is negative. Microbiology: Urine culture has a gram-negative breanne. Blood culture has been negative. Naris culture is unremarkable. CAT scan of the head is done on admission shows mild sinus disease, otherwise unremarkable. Chest x-ray was done, which shows no infiltrate or effusion reported. IMPRESSION AND PLAN: Resolving diabetic ketoacidosis. The patient been noncompliant, also have an urinary tract infection. We will discontinue Zithromax and place the patient on Levaquin. Keep head at 45 degrees, supplement oxygen. Continue IV fluids. Follow ABG, chest x-ray, CBC and CMP in the morning. Thank you and we will follow with you. Logan Mcclellan MD
[2017-12-16] MEDS: Potassium Chloride 20 MEQ in Dextrose 5%/0.45% NS 1,000 ML IV SCH ×2 (05:00→14:32)
[2017-12-16 07:38] LABS: ALB/GLOB RATIO 0.9 (1.1-1.8); ALBUMIN 2.9 g/dL (3.0-4.8); ALT/SGPT 25 U/L (7-56); AST/SGOT 17 U/L (14-36); BLOOD UREA NITROGEN 5 mg/dL (7-21); CALCIUM 8.5 mg/dL (8.4-10.5); GFR AFRICAN-AMERICAN > 60; GFR NON-AFRICAN AMERICAN > 60
[2017-12-16 08:02] LABS: HEMOGLOBIN 11.9 g/dL (12.0-16.0); MEAN CELL VOLUME 83.4 fl (80.0-105.0); MEAN CORPUSCULAR HEMOGLOBIN 28.7 pg (25.0-35.0); MEAN CORPUSCULAR HGB CONC 34.4 g/dl (31.0-37.0); MEAN PLATELET VOLUME 10.4 fl (7.0-11.0); RBC 4.15 [, 10^6/uL] (3.5-6.1); RED CELL DISTRIBUTION WIDTH 12.2 % (11.5-14.5); WHITE BLOOD COUNT 10.1 [, 10^3/ul] (4.5-11.0)
[2017-12-16] MEDS: Insulin Lispro 1 UNITS/0.01 ML SC SCH ×2 (08:47→16:49)
[2017-12-16] MEDS: Insulin Lispro (humaLOG) LOW Coverage SC SCH ×4 (08:47→21:48)
--- NOTE | 2017-12-16 08:58 | CON ---
DATE: 12/15/2017 ENDOCRINOLOGY CONSULTATION LOCATION: In ICU 129, room 7. HISTORY OF PRESENT ILLNESS: This is a 67-year-old female with known history of type 2 insulin-requiring diabetes, who apparently stopped insulin over a month ago because of frequent hypoglycemic episode and developed supervening hyperglycemic accelerations with near syncopal event on the day of admission prompting this further evaluation and was found to be in diabetic ketoacidosis and dehydration and has been admitted to ICU for close metabolic management. PAST MEDICAL HISTORY: History of hypertension, dyslipidemia, history of diabetic retinopathy and polyneuropathy. She also admits to known of history of coronary artery disease with underlying ischemic cardiomyopathy. FAMILY HISTORY: Positive for hypertension and diabetes in both maternal and paternal sides of the family. SOCIAL HISTORY: The patient has a supported family. No known substance use. REVIEW OF SYSTEMS: Admits to generalized body weakness with frequent bouts of dizziness, lightheadedness with last few days prior to admission, also admits to near syncopal episodes occurring again a few days prior to admission and worsened on the day of admission when she actually fell down in the kitchen area with no apparent loss of consciousness. Admits to marked hypersomnolence and lethargy with bifrontal headaches and visual blurring worse in the last few week prior to admission. No chest pains or palpitations or PND, but admits to progressive shortness of breath, especially on exertion. Her oral intake has been variable with nausea, dyspepsia and vague upper abdominal pains, also admits to marked polyuria, nocturia, polydipsia and about a 5-pound or so weight loss. PHYSICAL EXAMINATION: GENERAL: This is an average built female, in no apparent distress with a blood pressure of 140/70, pulse was 80 beats per minute, regular, temperature 99, respirations 20 . HEENT: Head normocephalic. Eyes anicteric with pink conjunctivae. Funduscopy is not possible at this time. Ears, nose and throat; otherwise normal. NECK: Supple. Thyroid gland is normal in size. No carotid bruits or any cervical adenopathy. CARDIOPULMONARY: Adynamic precordium. S1, S2 is rapid and regular. LUNGS: Clear to auscultation. ABDOMEN: Flat, soft with positive bowel sounds. EXTREMITIES: No peripheral edema. Pulses are +2 bilaterally. LABORATORY DATA: Initial showed BUN of 7, sodium 135, potassium 3.2, chloride 105, CO2 now is 20, glucose is 207. The initial glucose was 483 mg/dL. Subsequent glucose levels yesterday 192, 217, and 292 mg/dL. ASSESSMENT: This is a 67-year-old female with uncontrolled and decompensated type 2 insulin-requiring diabetes presenting here with diabetic ketoacidosis and dehydration with previous hyponatremia and hyperkalemia with clinically and biochemical evidence of dehydration, prerenal azotemia. This is most likely related to recent drug omission especially of insulin regimen as prescribed because of apparent symptomatic hypoglycemic episodes . She had no recent lab testing or medical follow with her primary physician as noted. PLAN OF MANAGEMENT: We will concur with the discontinuation of the insulin metabolic acidosis as noted. However, we will continue the vigorous IV hydration at this time to replenish the lost fluids and electrolytes especially in the light of severe and marked metabolic acidosis with increased osmotic diuresis and expected volume depletion as noted thereof. We will switch over now to a more physiologic basal and bolus insulin drug combination to optimize metabolic control and glucotoxicity as expected thereof. We will start her with Levemir given as 20 units subcutaneous at bedtime daily to start tonight. We will also add NovoLog given as 8 units subcutaneous t.i.d. before meals to start at dinner time today as ordered. We will titrate incrementally as indicated to optimize metabolic control. We will also modify the coverage to obviate hypoglycemia and we will modify the Humalog coverage scale as ordered. We will discontinue the Humulin-R given as 10 units before meals if this kind of insulin medications will overlap and cause frequent bouts of hypoglycemia. More recent insulin analogues are more predictable and rapid acting and also quicker acting in terms of the shorter step of life would not cause any hypoglycemia if given at moderate dose accordingly. We will obtain serial chemistries as given accordingly as needed. We will also obtain as noted. Baseline thyroid function studies and lipid panel will be ordered accordingly. We will obtain serial chemistries and supplement accordingly as needed. We will follow with you. Nancy Hall MD
[2017-12-16] MEDS: levoFLOXacin 500 MG TAB PO SCH ×2 (09:31→10:00)
--- NOTE | 2017-12-16 09:31 | HP ---
CHIEF COMPLAINT: Fatigue and tired, flu like symptoms. HISTORY OF PRESENT ILLNESS: Harmony Sequeira is a 67-year-old female with past medical history of diabetes mellitus, insulin requiring, very noncompliant, has 1 week history of generalized body ache, generalized weakness, headache, feeling of fever, nonproductive cough. She was thinking that she has flu, she took Thera-Flu yesterday . She denies nausea, vomiting, diarrhea, abdominal pain, chest pain. Complaining of shortness of breath with coughing. No urinary symptoms. No sore throat. No neck pain. No sick contact. No travel, but as per patient she changed her apartment from [place] to [place] and she was exhausted and not taking care of herself, has feeling of flu from couple of days. PAST MEDICAL HISTORY: Weak heart muscle as per patient, uncontrolled diabetes mellitus, noncompliant, diabetic neuropathy, insulin dependent diabetes mellitus type 2, history of hemorrhoids, history of endoscopy with colon biopsy, FAMILY HISTORY: Father and mother noncontributory. HABITS: Never smoke, no drugs, no ethanol. ALLERGIES: PATIENT IS ALLERGIC WITH PENICILLIN, VANCOMYCIN, LEVOFLOXACIN. HOME MEDICATIONS: Metformin, supposed to get insulin, but did not getting. REVIEW OF SYSTEMS: Patient is seen and examined on the bedside in the unit. Feeling little bit better. Otherwise overall feeling fatigue, feverish. No blurring of vision. No hearing problems and no discharge from the ears. Having cough, but no wheezing. No chest pain. No palpitation. No urinary symptoms. PHYSICAL EXAMINATION: VITAL SIGNS: Temperature 98.1, pulse 92, respiratory rate 22, blood pressure 190/57, and pulse oximetry 96%. HEENT: Head normocephalic, atraumatic. Eyes: PERRLA. Extraocular muscles intact. Conjunctivae clear. Nose patent. Mucous membranes moist. NECK: Supple. No carotid bruits. No JVD or thyromegaly. CHEST: Bilaterally symmetrical. HEART: S1 and S2 positive. LUNGS: Clear to auscultation. ABDOMEN: Soft. Bowel sounds present. No organomegaly. EXTREMITIES: No edema. No cyanosis. NEUROLOGIC: The patient is awake and alert. Moving all 4 extremities. No focal deficits. LABORATORY DATA: White blood cell 15.3, hemoglobin 13.7, hematocrit 41.3, platelets 250. Sodium 120, potassium 6.1, BUN 21, creatinine 0.8, and glucose 484. ASSESSMENT AND PLAN: Ms. Harmony Sequeira is a 67-year-old lady with leukocytosis, leukopenia, hyperkalemia, hyperglycemia. Patient has a history of uncontrolled diabetes mellitus. Now admitted with diabetic ketoacidosis, hyperglycemia. Cardiac, patient states she has weak heart muscles, history of hemorrhoids, upper respiratory tract infection, treatment started. We will call Endocrinology consult. Give aspirin, IV fluids, heparin for DVT prophylaxis. Getting insulin, got Kayexalate for hyperkalemia, Lipitor for hypercholesterolemia. Protonix for GI protection. We will start IV antibiotics for upper respiratory tract infection. Repeat labs. We will follow up. Ramya Proctor MD MTDFrankie
[2017-12-16] MEDS ORDERED: Potassium Chloride 20 mEq ER Tab PO ONE (12:24)
[2017-12-16] MEDS: Docusate-Senna 50 mg-8.6 mg Tab PO PRN (16:52)
--- NOTE | 2017-12-16 19:11 | PN ---
DATE: ENDO FOLLOWUP NOTE LOCATION: In room 129, bed 7, in CCU. SUBJECTIVE: This is a 67-year-old female with recent uncontrolled type 2 insulin-requiring diabetes presenting here with diabetic ketoacidosis and dehydration and received an insulin drip infusion and has since then been taken off the insulin drip as noted and ordered. She also received vigorous IV hydration with remarkable metabolic recovery as noted. Her latest glucose levels are fluctuating and have ranged from 223-255 and 310 mg/dL. Her latest chemistry showed a BUN of 5, sodium 134, potassium 3.4, chloride 103, CO2 22, glucose 265 and creatinine 0.4. So at this time, we will modify her basal and bolus insulin regimen and increase the Levemir to 26 units subcu at bedtime daily to start tonight. We will also increase the Humalog for her meal time insulin requirements to a higher dose of 10 units subcu t.i.d. before meals as ordered. We will continue the low-dose correction scale using Humalog insulin as ordered. We will also continue the vigorous IV hydration as given to optimize the fluid and electrolyte losses as expected with increased osmotic diuresis thereof. We will obtain serial chemistries and supplement accordingly as needed. We will follow. Nancy Hall MD
[2017-12-16] MEDS: Aztreonam 1 Gm in NS 100mL 100 ML IV SCH ×2 (19:54→21:55)
[2017-12-16] MEDS: Insulin Detemir 100 units/ml Vial (Levemir) SC SCH (21:48)
--- NOTE | 2017-12-16 23:51 | PN ---
PULMONARY PROGRESS NOTE DATE: 12/16/2017 REFERRING PHYSICIAN: Ramya Proctor MD SUBJECTIVE: She is out of bed to chair and feels much better. Night was unremarkable. No cough. No sputum production. No nausea. No vomiting, diarrhea, leg pain, or leg swelling. OBJECTIVE: GENERAL: In no acute distress. VITAL SIGNS: Temperature is 98, heart rate is 95, respiratory rate is 20, and blood pressure is 96/52. HEENT: Moist mucous membrane. No ulcer or thrush noted. NECK: Supple. No JVD. LUNGS: Has a fair airflow with few rhonchi. HEART: S1 and S2. ABDOMEN: Soft and nontender. No organomegaly. EXTREMITIES: There is no edema. NEUROLOGIC: Awake and alert. Follows simple commands. MEDICATIONS: She is on aspirin 81 mg daily, Azactam 1 g IV q.8 hours, heparin 5000 units subcutaneously q.12 hours, insulin coverage, Levemir 26 units at bedtime, Lipitor 40 mg daily, potassium 20 mEq daily, Protonix 40 mg a.c., Senokot p.r.n. basis, TriCor 145 mg daily, and Zofran p.r.n. basis. LABORATORY DATA: Shows hemoglobin 11.9, hematocrit 34.6, WBC 10.1, and platelet count 211. Sodium 134, potassium 3.4, chloride 103, bicarbonate 22, BUN 5, creatinine 0.4, glucose 265, and calcium 8.5. AST 17, ALT 25, alk phos is 68, albumin 2.90, and TSH is 0.34. Microbiology; urine culture has Klebsiella pneumoniae. IMPRESSION AND PLAN: Status post diabetic ketoacidosis, urinary tract infection, and bronchitis. Pulmonary point of view, doing okay. I had long discussion with the patient about noncompliant with insulin consequences and effect. She expressed understanding, continue antibiotics, out of bed to chair, and diabetic teaching. Thank you and we will follow with you. Logan Mcclellan MD
--- NOTE | 2017-12-17 02:17 | CON ---
DATE: 12/16/2017 LOCATION: The patient is in CCU 129, bed 7. CHIEF COMPLAINT: Dysuria and frequency times several days. HISTORY OF PRESENT ILLNESS: This is a 67-year-old female with past medical history of coronary artery disease, hypertension, hypercholesterinemia, diabetes mellitus, colitis, history of cardiomyopathy, who is allergic to penicillin, vancomycin, Levaquin, and was admitted with a diagnosis of diabetic ketoacidosis. Infectious Disease consultation requested. REVIEW OF SYSTEMS: Reveals the patient is having fevers, occasional chills. She has dysuria, frequency, and she has lower pelvic pain. No nausea or vomiting. No chest pain. She has mild shortness of breath. No headaches or blurred vision. PAST MEDICAL HISTORY: Significant for coronary artery disease, high cholesterol, diabetes, colitis, and cardiomyopathy. PAST SURGICAL HISTORY: Signification for . MEDICATIONS: The patient's medications at home include metformin. ALLERGIES: THE PATIENT IS ALLERGIC TO PENICILLIN, VANCOMYCIN, AND LEVAQUIN, ALTHOUGH THE PATIENT HERSELF SAYS SHE IS ALLERGIC TO PENICILLIN, SHE DEVELOPED A RASH FEW YEARS AGO. SHE IS NOT AWARE OF THE VANCOMYCIN AND LEVAQUIN ALLERGY. PHYSICAL EXAMINATION: VITAL SIGNS: Temperature is 102.8, blood pressure is 96/52, respiratory rate of 20, was up to 24, and heart rate of 99 to 107. HEENT: Unremarkable. NECK: Supple. LUNGS: Have decreased breath sounds. HEART: Normal S1 and S2. ABDOMEN: Soft and nontender. There is mild pelvic pain and tenderness. No rebound or guarding. LABORATORY EXAMINATION: Reveals a white count of 15,300, hemoglobin of 13, platelets of 260, 84% granulocytosis. Coagulation is noted. Chemistries are reviewed and BUN of 5, creatinine of 0.4, glucose 310 with an elevated procalcitonin of 4.28 and sodium of 134. Urinalysis reveals 10 to 15 wbc's, many bacteria, there is positive nitrites and trace protein. Influenza serology is negative. The patient had a chest x-ray, which is reported to be negative and a CT scan of the head, which is reported to be negative. Dr. Proctor's history and physical examination is reviewed. Dr. Mcclellan's consultation is reviewed. ASSESSMENT AND PLAN: This is a 67-year-old female with coronary artery disease, high cholesterol, diabetes, colitis with a fever, tachycardia, dyspnea, positive urinalysis and urine culture: 1. Sepsis with Klebsiella, urine as a source and cystitis, and the patient is allergic to penicillin, vancomycin, and Levaquin. We will treat with aztreonam 1 g q.8 hours. We will follow closely with you and check on the final blood cultures, thus far reported to be negative. Rogelio Alonzo MD
--- NOTE | 2017-12-17 04:13 | PN ---
DATE: 12/16/2017 SUBJECTIVE: The patient is 67-year-old female. The patient was sitting on the bed chair, feeling better. Night was unremarkable. Coughing is better, shortness of breath is better. No nausea, vomiting, or diarrhea. No swelling of the leg, but later on nurse called me that the patient is getting high-grade fever and they did get brought . ID consult called with Dr. Alonzo. He started the patient on IV antibiotics. PHYSICAL EXAMINATION: VITAL SIGNS: T-max 100, respiratory rate 22, blood pressure 96/52. HEENT: Head normocephalic and atraumatic. Eyes: PERRLA. Extraocular muscles intact. Conjunctivae clear. Nose patent. Mucous membranes are moist. NECK: Supple. No carotid bruits. No JVD or thyromegaly. CHEST: Bilaterally symmetrical. HEART: S1 and S2 positive. LUNGS: Clear to auscultation. ABDOMEN: Soft. Bowel sounds present. No organomegaly. EXTREMITIES: No edema. No cyanosis. NEUROLOGIC: The patient is awake and alert. Moving all four extremities. No focal deficits. MEDICATIONS: Aspirin, Azactam, heparin, Levemir, Lipitor, potassium, Protonix, Senokot,Tricor, Tylenol, and Zofran. LABORATORY DATA: White blood cell 10.0, hemoglobin 11.9, hematocrit 34.6, and platelets 215,000. Sodium 135, potassium 3.4, BUN 5, creatinine 0.4, and glucose 381 and 265. ASSESSMENT AND PLAN: Ms. 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 The patient is noncompliant, urged to be compliant. The patient understands the importance of continuing antibiotics, The patient's sister is a nurse in the [facility], does educate the family. I reviewed Dr. Nancy Hall's note, she is also on GI prophylaxis. Now may be give antibiotics as per Dr. Alonzo, may be he will order some repeat blood cultures. Dr. Alonzo started her on aztreonam. GI prophylaxis. Continue fenofibrate for hypertriglyceridemia. Repeat labs. Ramya Proctor MD MTDD
--- NOTE | 2017-12-17 05:45 | PN ---
ENDOCRINOLOGY FOLLOWUP NOTE LOCATION: ICU room 129, seven. SUBJECTIVE: This is a 67-year-old female with recent uncontrolled type 2 insulin-requiring diabetes, presenting here with diabetic ketoacidosis and dehydration and since then improved clinically and metabolically as noted thereof. She received vigorous IV hydration and intensive insulin therapy with an insulin drip infusion initially and has now been switched over to a combination of basal and bolus insulin regimen as ordered. Her glucose levels have improved, but still fluctuating ranging from 203 to 381 mg/dL. Her latest chemistry showed a BUN of 5, sodium 134, potassium 3.4, chloride 103, CO2 of 22, glucose 265, and creatinine 0.4. So at this time, we will continue the same basal and bolus insulin regimen to allow for dose equilibration and keep her on Levemir given as 26 units subcu at bedtime daily to start tonight. We will continue the NovoLog given as higher dose of 10 units subcutaneous t.i.d. before meals as ordered. We will continue the low-dose correcting scale using Humalog insulin as ordered. We will follow her and advice accordingly. Nancy Hall MD
[2017-12-17] MEDS: Potassium Chloride 20 MEQ in Dextrose 5%/0.45% NS 1,000 ML IV SCH (06:14)
[2017-12-17] MEDS: Aztreonam 1 Gm in NS 100mL 100 ML IV SCH ×3 (06:15→21:38)
[2017-12-17] MEDS: Pantoprazole 40 mg EC Tab PO SCH (08:23)
[2017-12-17] MEDS: Insulin Lispro (humaLOG) LOW Coverage SC SCH ×4 (08:23→21:39)
[2017-12-17] MEDS: Insulin Lispro 1 UNITS/0.01 ML SC SCH ×3 (08:24→18:29)
[2017-12-17 13:47] LABS: C-PEPTIDE 0.3 ng/mL (0.80-3.85)
[2017-12-17] MEDS ORDERED: Simethicone 80 mg Chewtab PO PRN (18:07)
--- NOTE | 2017-12-17 19:03 | PN ---
DATE: 12/17/2017 PULMONARY PROGRESS NOTE REFERRING PHYSICIAN: Dr. Proctor. SUBJECTIVE: She is lying in the bed, head up at 35 degrees. Night was unremarkable, feels okay. No headache. No rhinitis. No nausea. Has mild dysuria. No leg pain or leg swelling. OBJECTIVE: GENERAL: In no acute distress. VITAL SIGNS: Temperature is 100.3, heart rate is 92, respiratory rate is 14, and blood pressure is 112/66, pulse ox 92% on room air. HEENT: Moist mucous membrane. No ulcer or thrush noted. NECK: Supple. No JVD. LUNGS: Has a fair airflow with few rhonchi. HEART: S1 and S2. ABDOMEN: Soft and nontender. No organomegaly. EXTREMITIES: There is no edema. NEUROLOGIC: Awake and alert. Follows simple commands. MEDICATIONS: She is on aspirin 81 mg daily, Azactam 1 g IV q. 8 hours, heparin 5000 units subcutaneously q. 12 hours, insulin coverage, Levemir 26 units subcutaneously at bedtime, Lipitor 40 mg daily, potassium 20 mEq with IV fluid, Protonix 40 mg daily, Senokot p.r.n., TriCor 145 mg daily, Tylenol p.r.n.,and Zofran p.r.n. LABORATORY DATA: Reviewed, noted blood sugar this morning is 191. Urine culture have Klebsiella pneumoniae. IMPRESSION AND PLAN: Status post diabetic ketoacidosis, urinary tract infection, noncompliant with the medication, bronchitis. Continue antibiotics give at 45 degree. On Azactam, still have a low grade fever seen by Dr. Alonzo, out of bed to chair physical therapy. Continue IV fluid, encouraged p.o. intake. Thank you and we will follow with you. Logan Mcclellan MD
[2017-12-17] MEDS: Insulin Detemir 100 units/ml Vial (Levemir) SC SCH (21:37)
--- NOTE | 2017-12-17 23:01 | CP.PCM.PN ---
<Yanet Howard - Last Filed: 12/17/17 23:39> Subjective - Date & Time of Evaluation Date of Evaluation: 12/17/17 Time of Evaluation: 18:00 - Subjective Subjective: 67 yr female w/ history of noncompliance, diabetes (insulin dependent), neuropathy, & hemorrhoids. Admitted for DKA. Pt is sitting out of bed to chair. She is eating dinner. She is c/o constipation x 3 days and "bloating." Pt denies fevers, chills, n/v, diarrhea, urinary frequency, or chest pain. Objective - Vital Signs/Intake and Output Vital Signs (last 24 hours): Temp Pulse Resp BP Pulse Ox 100.3 F H 104 H 93 H 112/66 92 L 12/17/17 08:00 12/17/17 08:00 12/17/17 08:00 12/17/17 08:00 12/17/17 08:00 Intake and Output: 12/17/17 12/18/17 18:59 06:59 Intake Total 2380 Output Total 400 Balance 1980 - Medications Medications: Current Medications Acetaminophen (Tylenol 325mg Tab) 650 mg PO Q4 PRN PRN Reason: Pain, severe (8-10) Last Admin: 12/16/17 08:48 Dose: 650 mg Aspirin (Aspirin Chewable) 81 mg PO DAILY [facility] Last Admin: 12/17/17 11:29 Dose: 81 mg Atorvastatin Calcium (Lipitor) 40 mg PO DIN [facility] Last Admin: 12/17/17 18:29 Dose: 40 mg Docusate Sodium (Colace) 100 mg PO DAILY [facility] Fenofibrate (Tricor) 145 mg PO DAILY [facility] Last Admin: 12/17/17 11:29 Dose: 145 mg Heparin Sodium (Porcine) (Heparin) 5,000 units SC Q12H [facility] PRN Reason: Protocol Last Admin: 12/17/17 22:39 Dose: 5,000 units Potassium Chloride 20 meq/ (Dextrose/Sodium Chloride) 1,010 mls @ 150 mls/hr IV .Q6H44M [facility] Last Admin: 12/17/17 06:14 Dose: 150 mls/hr Aztreonam (Azactam 1 Gm) 100 mls @ 100 mls/hr IV Q8 [facility] PRN Reason: Protocol Stop: 12/26/17 18:31 Last Admin: 12/17/17 21:38 Dose: 100 mls/hr Insulin Detemir (Levemir) 26 unit SC HS [facility] Last Admin: 12/17/17 21:37 Dose: 26 unit Insulin Human Lispro (Humalog Low) 0 units SC ACHS [facility] PRN Reason: Protocol Last Admin: 12/17/17 21:39 Dose: Not Given Insulin Human Lispro (Humalog) 10 units SC AC [facility] Last Admin: 12/17/17 18:29 Dose: 10 units Ondansetron HCl (Zofran Inj) 4 mg IVP Q6H PRN PRN Reason: Nausea/Vomiting Pantoprazole Sodium (Protonix Ec Tab) 40 mg PO ACB [facility] Last Admin: 12/17/17 08:23 Dose: 40 mg Polyethylene Glycol (Miralax) 17 gm PO DAILY [facility] Senna/Docusate Sodium (Senokot S 50 Mg-8.6 Mg) 1 tab PO Q8 PRN PRN Reason: Constipation Last Admin: 12/16/17 16:52 Dose: 1 tab Simethicone (Mylicon Chew Tab) 80 mg PO PCHS PRN PRN Reason: GI distress - Labs Labs: 12/16/17 05:48 12/16/17 05:48 PT 10.9 SECONDS (9.4-12.5) 12/13/17 21:26 INR 0.96 (0.93-1.08) 12/13/17 21:26 APTT 22.4 Seconds (25.1-36.5) L 12/13/17 21:26 - Constitutional Appears: No Acute Distress - Head Exam Head Exam: ATRAUMATIC, NORMAL INSPECTION, NORMOCEPHALIC - Eye Exam Eye Exam: EOMI, Normal appearance, PERRL Pupil Exam: NORMAL ACCOMODATION, PERRL - ENT Exam ENT Exam: Mucous Membranes Moist, Normal Exam - Neck Exam Neck Exam: Full ROM, Normal Inspection. absent: Lymphadenopathy - Respiratory Exam Respiratory Exam: Clear to Ausculation Bilateral, NORMAL BREATHING PATTERN - Cardiovascular Exam Cardiovascular Exam: Murmur - GI/Abdominal Exam GI & Abdominal Exam: Soft, Normal Bowel Sounds. absent: Tenderness - Extremities Exam Extremities Exam: Full ROM, Normal Capillary Refill, Normal Inspection. absent : Joint Swelling, Pedal Edema - Back Exam Back Exam: NORMAL INSPECTION - Neurological Exam Neurological Exam: Alert, Awake, Oriented x3 - Psychiatric Exam Psychiatric exam: Normal Affect, Normal Mood - Skin Skin Exam: Dry, Intact, Normal Color, Warm Assessment and Plan (1) Constipation Status: Acute (2) Hypophosphatemia Status: Acute (3) Hyperthyroidism Status: Acute (4) UTI due to Klebsiella species Status: Acute (5) Sepsis Status: Acute (6) Sinusitis Status: Acute (7) High cholesterol Status: Acute (8) DKA (diabetic ketoacidosis) Status: Acute (9) Hyperglycemia Status: Acute (10) Hyponatremia Status: Acute (11) Leukocytosis Status: Acute - Assessment and Plan (Free Text) Plan: Ordered simethicone, miralax, & colace. Labs ordered. IV azactam. Urine culture (+) Kleb Pneumoniae. Blood culture (-). VTE/GI prophlyaxis. PT. Consults: Endocrine - Cam = continue same basal bolus insulin, levemir 26 subq HS/ novolog 10 subq TID / humalog sliding scale Pulmonary - Dr. Mcclellan ID - Dr. Alonzo Reviewed: CT head = mild atrophy & mild chronic small vessle ischemic disease, mild sinus disease CXR = WNL ECG = NSR <Ramya Proctor - Last Filed: 12/17/17 23:52> Subjective - Subjective Subjective: 67 yr female w/ history of noncompliance, diabetes (insulin dependent), neuropathy, & hemorrhoids. Admitted for DKA. Pt is sitting out of bed to chair. She is eating dinner. She is c/o constipation x 3 days and "bloating." Pt denies fevers, chills, n/v, diarrhea, urinary frequency, or chest pain. agreed all above , meds ,chart and labs noted , anb , as per id , endo is on the case also , will f/u Objective - Vital Signs/Intake and Output Vital Signs (last 24 hours): Temp Pulse Resp BP Pulse Ox 100.3 F H 104 H 93 H 112/66 92 L 12/17/17 08:00 12/17/17 08:00 12/17/17 08:00 12/17/17 08:00 12/17/17 08:00 Intake and Output: 12/17/17 12/18/17 18:59 06:59 Intake Total 2380 Output Total 400 Balance 1980 - Medications Medications: Current Medications Acetaminophen (Tylenol 325mg Tab) 650 mg PO Q4 PRN PRN Reason: Pain, severe (8-10) Last Admin: 12/16/17 08:48 Dose: 650 mg Aspirin (Aspirin Chewable) 81 mg PO DAILY [facility] Last Admin: 12/17/17 11:29 Dose: 81 mg Atorvastatin Calcium (Lipitor) 40 mg PO DIN [facility] Last Admin: 12/17/17 18:29 Dose: 40 mg Docusate Sodium (Colace) 100 mg PO DAILY [facility] Fenofibrate (Tricor) 145 mg PO DAILY [facility] Last Admin: 12/17/17 11:29 Dose: 145 mg Heparin Sodium (Porcine) (Heparin) 5,000 units SC Q12H [facility] PRN Reason: Protocol Last Admin: 12/17/17 22:39 Dose: 5,000 units Potassium Chloride 20 meq/ (Dextrose/Sodium Chloride) 1,010 mls @ 150 mls/hr IV .Q6H44M [facility] Last Admin: 12/17/17 06:14 Dose: 150 mls/hr Aztreonam (Azactam 1 Gm) 100 mls @ 100 mls/hr IV Q8 [facility] PRN Reason: Protocol Stop: 12/26/17 18:31 Last Admin: 12/17/17 21:38 Dose: 100 mls/hr Insulin Detemir (Levemir) 26 unit SC [facility] Last Admin: 12/17/17 21:37 Dose: 26 unit Insulin Human Lispro (Humalog Low) 0 units SC ACHS [facility] PRN Reason: Protocol Last Admin: 12/17/17 21:39 Dose: Not Given Insulin Human Lispro (Humalog) 10 units SC AC [facility] Last Admin: 12/17/17 18:29 Dose: 10 units Ondansetron HCl (Zofran Inj) 4 mg IVP Q6H PRN PRN Reason: Nausea/Vomiting Pantoprazole Sodium (Protonix Ec Tab) 40 mg PO ACB [facility] Last Admin: 12/17/17 08:23 Dose: 40 mg Polyethylene Glycol (Miralax) 17 gm PO DAILY [facility] Senna/Docusate Sodium (Senokot S 50 Mg-8.6 Mg) 1 tab PO Q8 PRN PRN Reason: Constipation Last Admin: 12/16/17 16:52 Dose: 1 tab Simethicone (Mylicon Chew Tab) 80 mg PO HS PRN PRN Reason: GI distress - Labs Labs: 12/16/17 05:48 12/16/17 05:48 PT 10.9 SECONDS (9.4-12.5) 12/13/17 21:26 INR 0.96 (0.93-1.08) 12/13/17 21:26 APTT 22.4 Seconds (25.1-36.5) L 12/13/17 21:26
--- NOTE | 2017-12-18 03:13 | PN ---
DATE: 12/17/2017 SUBJECTIVE: The patient is in bed, in no acute distress. The patient was seen earlier today. PHYSICAL EXAMINATION: VITAL SIGNS: Temperature is 100.3, blood pressure is 112/60, respiratory rate of 19, heart rate of 90. HEENT: Unremarkable. NECK: Supple. LUNGS: Have decreased breath sounds. HEART: Normal S1 and S2. ABDOMEN: Soft and nontender. LABORATORY DATA: Reveals white count of 10,000, hemoglobin 11, platelets of 215. Coagulation is noted. Chemistry reveals patient's BUN of 5, creatinine of 0.4. Urinalysis is noted and is negative. Microbiology reveals urine with Klebsiella pneumonia. Blood cultures, no growth. Nares, MRSA is not detected. Klebsiella is pansensitive. Review of orders reveals the patient to be on aztreonam. ASSESSMENT AND PLAN: This is a 67-year-old female with coronary artery disease; high cholesterol; diabetes; colitis with a fever; tachycardia; dyspnea; positive urinalysis with sepsis, Klebsiella in the urine as a source and cystitis; is ALLERGIC TO PENICILLIN, VANCOMYCIN, AND LEVAQUIN; currently aztreonam; had low grade fever. If the fevers persist, she will need a CT of the abdomen and pelvis to rule out collection and/or stones. We will order CAT scan of the abdomen and pelvis, p.o. contrast only. We will follow if fever recurs and clinical response. Rogelio Alonzo MD
[2017-12-18] MEDS ORDERED: Barium Sulfate Susp 2.1% w/v, 2.0% w/w 450 mL Bottle PO ONE (06:41)
[2017-12-18] MEDS: Aztreonam 1 Gm in NS 100mL 100 ML IV SCH ×3 (06:46→22:00)
[2017-12-18 07:18] LABS: BASO # 0.02 [, K/mm3] (0.0-2.0); BASO % 0.2 % (0.0-3.0); EOS # 0.1 (0.0-0.7); EOS % 1.3 % (1.5-5.0); GRAN # 5.69 (1.4-6.5); GRAN % 65.7 % (50.0-68.0); HEMOGLOBIN 10.8 g/dL (12.0-16.0); LYMPH # 1.7 (1.2-3.4); LYMPH % 19.7 % (22.0-35.0); MEAN CELL VOLUME 85.5 fl (80.0-105.0); MEAN CORPUSCULAR HEMOGLOBIN 27.9 pg (25.0-35.0); MEAN CORPUSCULAR HGB CONC 32.6 g/dl (31.0-37.0); MEAN PLATELET VOLUME 9.9 fl (7.0-11.0); MONO # 1.1 (0.1-0.6); MONO % 13.1 % (1.0-6.0); RBC 3.87 [, 10^6/uL] (3.5-6.1); RED CELL DISTRIBUTION WIDTH 12.7 % (11.5-14.5); WHITE BLOOD COUNT 8.7 [, 10^3/ul] (4.5-11.0)
[2017-12-18 07:50] LABS: ALB/GLOB RATIO 0.9 (1.1-1.8); ALBUMIN 2.7 g/dL (3.0-4.8); ALT/SGPT 18 U/L (7-56); AST/SGOT 17 U/L (14-36); BLOOD UREA NITROGEN 5 mg/dL (7-21); CALCIUM 8.5 mg/dL (8.4-10.5); GFR AFRICAN-AMERICAN > 60; GFR NON-AFRICAN AMERICAN > 60
[2017-12-18] MEDS: Insulin Lispro (humaLOG) LOW Coverage SC SCH ×4 (08:25→22:13)
[2017-12-18] MEDS: Pantoprazole 40 mg EC Tab PO SCH (08:32)
[2017-12-18] MEDS: Insulin Lispro 1 UNITS/0.01 ML SC SCH ×3 (08:33→17:33)
--- NOTE | 2017-12-18 11:05 | CT ---
PROCEDURE: CT Abdomen and Pelvis without intravenous contrast HISTORY: fever r/o pyloneph COMPARISON: None. TECHNIQUE: Without contrast. Contrast Dose: Radiation dose: Total exam DLP = 541 mGy-cm. This CT exam was performed using one or more of the following dose reduction techniques: Automated exposure control, adjustment of the mA and/or kV according to patient size, and/or use of iterative reconstruction technique. FINDINGS: LOWER THORAX: Small pleural effusions LIVER: Unremarkable. No gross lesion or ductal dilatation. GALLBLADDER AND BILE DUCTS: Unremarkable. PANCREAS: Unremarkable. No gross lesion or ductal dilatation. SPLEEN: Unremarkable. ADRENALS: Unremarkable. No mass. KIDNEYS AND URETERS: There is mild right-sided hydronephrosis. There is no evidence of a ureteral stone. The left kidney is unremarkable. VASCULATURE: Unremarkable. No aortic aneurysm. BOWEL: Unremarkable. No obstruction. No gross mural thickening. APPENDIX: Unremarkable. Normal appendix. PERITONEUM: Unremarkable. No free fluid. No free air. LYMPH NODES: Unremarkable. No enlarged lymph nodes. BLADDER: The bladder is distended. There is a small amount of air in the bladder most likely from recent catheterization. REPRODUCTIVE: Unremarkable. BONES: No acute fracture. OTHER FINDINGS: None. IMPRESSION: Mild right-sided hydronephrosis with no obvious stone. Distention of the bladder.
[2017-12-18] MEDS: POLYETHYLENE GLYCOL 3350 17 GM/Dose PACKET PO SCH (11:24)
[2017-12-18] MEDS: Docusate-Senna 50 mg-8.6 mg Tab PO PRN (11:42)
[2017-12-18] MEDS ORDERED: Albuterol-Ipratrop 3 mg / 0.5 (3 ml) UD IH ONE (12:00)
[2017-12-18] MEDS: Potassium Chloride 20 MEQ in Dextrose 5%/0.45% NS 1,000 ML IV SCH ×2 (12:08→21:57)
--- NOTE | 2017-12-18 19:53 | PN ---
DATE: 12/18/2017 REFERRING PHYSICIAN: Dr. Proctor. SUBJECTIVE: She is lying in the bed. Night was unremarkable. No headache. No rhinitis. No nausea. No chest pain. Constipated, still has some urinary issue. No leg pain or leg swelling. OBJECTIVE: GENERAL: In no acute distress. VITAL SIGNS: Temperature is 98, heart rate is 102, respiratory rate is 20, and blood pressure is 123/71, pulse ox 96% on room air. HEENT: Moist mucous membrane. No ulcer or thrush noted. NECK: Supple. No JVD. LUNGS: Has a fair airflow with few rhonchi. HEART: S1 and S2. ABDOMEN: Soft and nontender. No organomegaly. EXTREMITIES: There is no edema. NEUROLOGIC: Awake and alert. Follows simple commands. MEDICATIONS: She is on aspirin 81 mg daily, Azactam 1 g IV q. 8 hours, Colace 100 mg daily, heparin 5000 units subcutaneously q. 12 hours, insulin coverage, Levemir 32 units subcutaneously at bedtime, Lipitor 40 mg daily, MiraLax 17 g daily, Mylicon p.r.n. basis, potassium 20 mEq with IV fluid, Protonix 40 mg daily, Senokot p.r.n., TriCor 145 mg daily, Tylenol p.r.n.,and Zofran p.r.n. LABORATORY DATA: Shows hemoglobin 10.8, hematocrit 33.1, WBC 8.7, platelet count is 254. Sodium 133, potassium 4.1, chloride 99, bicarbonate 28, BUN 5, creatinine 0.5, glucose 117, calcium is 8.5, AST 17, ALT 18, alk phos is 70, albumin is 2.7. Microbiology, urine culture has Klebsiella pneumoniae. Has a CAT scan of the abdomen done yesterday which was mild right-sided hydronephrosis with no obvious stone, distention of the bladder. IMPRESSION AND PLAN: Status post diabetic ketoacidosis, urinary tract infection, constipation, bronchitis. Pulmonary point of view, doing okay. Keep head at 45 degrees. Aspiration precaution. Continue antibiotics. Stool softener. Out of bed to chair. Continue IV fluid, ambulate. Thank you and we will follow with you. Logan Mcclellan MD [facility] # [id number]
[2017-12-18] MEDS ORDERED: Insulin Detemir 100 units/ml Vial (Levemir) SC SCH (22:00)
--- NOTE | 2017-12-18 23:46 | PN ---
DATE: 12/18/2017 SUBJECTIVE: The patient is in bed. No acute distress. Nontoxic. PHYSICAL EXAMINATION: VITAL SIGNS: Temperature is 98, T-max is 100.3 yesterday, blood pressure is 115/60, respiratory rate of 20. HEENT: Unremarkable. NECK: Supple. LUNGS: Have decreased breath sounds. HEART: Normal S1 and S2. ABDOMEN: Soft and nontender. LABORATORY DATA: Reveals a white count of 8.7, hemoglobin of 10. Chemistries reveals a BUN of 5, creatinine of 0.5. Procalcitonin is noted to be 4.28. Reviewed of the microbiology, reveals Klebsiella species in the urine. ASSESSMENT AND PLAN: This is a 67-year-old female with coronary artery disease, high cholesterol, diabetes, colitis, fever, tachycardia, dyspnea, possible urinalysis with #1 sepsis with Klebsiella and urine as a source and cystitis. The patient is ALLERGIC TO VANCOMYCIN, PENICILLIN, AND LEVAQUIN. Currently on aztreonam, day #3 of 7 days. Rogelio Alonzo MD
[2017-12-19] MEDS: guaiFENesin 100 mg/5 ml Syrup UD PO PRN ×2 (01:12→12:12)
--- NOTE | 2017-12-19 01:43 | CP.PCM.PN ---
Subjective - Date & Time of Evaluation Date of Evaluation: 12/19/17 Time of Evaluation: 01:41 - Subjective Subjective: S:Dry cough. No other complaints now. Pertinent medical record was reviewed. O: Last Vital Signs 3 Temp 98.2 F 12/18/17 17:05 Pulse 92 H 12/18/17 17:05 Resp 20 12/18/17 17:05 BP 115/65 12/18/17 17:05 Pulse Ox 96 12/18/17 17:05 Awake, alert. Not in distress. LUNGS:Normal breathing pattern. A:Cough. P: Robitussin as ordered. Objective - Vital Signs/Intake and Output Vital Signs (last 24 hours): Temp Pulse Resp BP Pulse Ox 98.2 F 92 H 20 115/65 96 12/18/17 17:05 12/18/17 17:05 12/18/17 17:05 12/18/17 17:05 12/18/17 17:05 Intake and Output: 12/18/17 12/19/17 18:59 06:59 Intake Total 480 Balance 480 - Medications Medications: Current Medications Acetaminophen (Tylenol 325mg Tab) 650 mg PO Q4 PRN PRN Reason: Pain, severe (8-10) Last Admin: 12/16/17 08:48 Dose: 650 mg Aspirin (Aspirin Chewable) 81 mg PO DAILY [facility] Last Admin: 12/18/17 11:24 Dose: 81 mg Atorvastatin Calcium (Lipitor) 40 mg PO DIN [facility] Last Admin: 12/18/17 17:33 Dose: 40 mg Docusate Sodium (Colace) 100 mg PO DAILY [facility] Last Admin: 12/18/17 11:24 Dose: 100 mg Fenofibrate (Tricor) 145 mg PO DAILY [facility] Last Admin: 12/18/17 11:24 Dose: 145 mg Guaifenesin (Robitussin) 100 mg PO Q4H PRN PRN Reason: Cough Heparin Sodium (Porcine) (Heparin) 5,000 units SC Q12H [facility] PRN Reason: Protocol Last Admin: 12/18/17 22:18 Dose: 5,000 units Potassium Chloride 20 meq/ (Dextrose/Sodium Chloride) 1,010 mls @ 150 mls/hr IV .Q6H44M [facility] Last Admin: 12/18/17 21:57 Dose: 150 mls/hr Aztreonam (Azactam 1 Gm) 100 mls @ 100 mls/hr IV Q8 [facility] PRN Reason: Protocol Stop: 12/26/17 18:31 Last Admin: 12/18/17 22:00 Dose: 100 mls/hr Insulin Detemir (Levemir) 32 unit SC HS [facility] Last Admin: 12/18/17 22:19 Dose: 32 unit Insulin Human Lispro (Humalog Low) 0 units SC ACHS [facility] PRN Reason: Protocol Last Admin: 12/18/17 22:13 Dose: Not Given Insulin Human Lispro (Humalog) 14 units SC AC [facility] Last Admin: 12/18/17 17:33 Dose: 14 units Ondansetron HCl (Zofran Inj) 4 mg IVP Q6H PRN PRN Reason: Nausea/Vomiting Pantoprazole Sodium (Protonix Ec Tab) 40 mg PO ACB [facility] Last Admin: 12/18/17 08:32 Dose: 40 mg Polyethylene Glycol (Miralax) 17 gm PO DAILY [facility] Last Admin: 12/18/17 11:24 Dose: 17 gm Senna/Docusate Sodium (Senokot S 50 Mg-8.6 Mg) 1 tab PO Q8 PRN PRN Reason: Constipation Last Admin: 12/18/17 11:42 Dose: 1 tab Simethicone (Mylicon Chew Tab) 80 mg PO [facility] PRN PRN Reason: GI distress - Labs Labs: 12/18/17 06:30 12/18/17 06:30 PT 10.9 SECONDS (9.4-12.5) 12/13/17 21:26 INR 0.96 (0.93-1.08) 12/13/17 21:26 APTT 22.4 Seconds (25.1-36.5) L 12/13/17 21:26
--- NOTE | 2017-12-19 04:05 | PN ---
DATE: ENDOCRINOLOGY FOLLOWUP LOCATION: Room 562. This is a 67-year-old female with recent uncontrolled type 2 insulin-requiring diabetes so continues to have persistent hyperglycemic fluctuations as noted thereof. Her oral intake is quite variable, but has improved as per the nursing staff. Her glucose values today have ranged from 117 to 221, 238, and 281 mg/dL. Her latest chemistry showed a BUN of 5, sodium 133, potassium 4.1, chloride 99, CO2 of 28, glucose 280, and creatinine 0.5. So at this time, we will modify her current basal and bolus insulin regimen once again and increase the Humalog to 14 units subcu t.i.d. before meals to start today as ordered. We will also increase the Levemir to 52 units subcu at bedtime daily to start tonight. We will continue the low-dose correction scale using Humalog insulin as given. We will obtain serial chemistries and supplement accordingly as needed. We will also continue the IV hydration to replenish the lost fluid and electrolytes as indicated. We will obtain serial chemistries accordingly. We will follow the patient. Nancy Hall MD
[2017-12-19] MEDS: Aztreonam 1 Gm in NS 100mL 100 ML IV SCH ×3 (06:25→23:50)
--- NOTE | 2017-12-19 06:47 | CP.PCM.PN ---
Subjective - Date & Time of Evaluation Date of Evaluation: 12/19/17 Time of Evaluation: 06:47 - Subjective Subjective: Draft. Cough. Rx, robitussin as ordered. Objective - Vital Signs/Intake and Output Vital Signs (last 24 hours): Temp Pulse Resp BP Pulse Ox 98.2 F 92 H 20 115/65 96 12/18/17 17:05 12/18/17 17:05 12/18/17 17:05 12/18/17 17:05 12/18/17 17:05 Intake and Output: 12/18/17 12/19/17 18:59 06:59 Intake Total 480 240 Balance 480 240 - Medications Medications: Current Medications Acetaminophen (Tylenol 325mg Tab) 650 mg PO Q4 PRN PRN Reason: Pain, severe (8-10) Last Admin: 12/16/17 08:48 Dose: 650 mg Aspirin (Aspirin Chewable) [address] [facility] Last Admin: 12/18/17 11:24 Dose: 81 mg Atorvastatin Calcium (Lipitor) [address] [facility] Last Admin: 12/18/17 17:33 Dose: 40 mg Docusate Sodium (Colace) [address] [facility] Last Admin: 12/18/17 11:24 Dose: 100 mg Fenofibrate (Tricor) [address] [facility] Last Admin: 12/18/17 11:24 Dose: 145 mg Guaifenesin (Robitussin) 100 mg PO Q4H PRN PRN Reason: Cough Last Admin: 12/19/17 01:12 Dose: 100 mg Heparin Sodium (Porcine) (Heparin) 5,[address] [facility] PRN Reason: Protocol Last Admin: 12/18/17 22:18 Dose: 5,000 units Potassium Chloride 20 meq/ (Dextrose/Sodium Chloride) 1,010 mls @ 150 mls/hr IV .Q6H44M [facility] Last Admin: 12/18/17 21:57 Dose: 150 mls/hr Aztreonam (Azactam 1 Gm) 100 mls @ 100 mls/hr IV Q8 [facility] PRN Reason: Protocol Stop: 12/26/17 18:31 Last Admin: 12/19/17 06:25 Dose: 100 mls/hr Insulin Detemir (Levemir) [address] [facility] Last Admin: 12/18/17 22:19 Dose: 32 unit Insulin Human Lispro (Humalog Low) [address] [facility] PRN Reason: Protocol Last Admin: 12/18/17 22:13 Dose: Not Given Insulin Human Lispro (Humalog) [address] [facility] Last Admin: 12/18/17 17:33 Dose: 14 units Ondansetron HCl (Zofran Inj) 4 mg IVP Q6H PRN PRN Reason: Nausea/Vomiting Pantoprazole Sodium (Protonix Ec Tab) [address] [facility] Last Admin: 12/18/17 08:32 Dose: 40 mg Polyethylene Glycol (Miralax) [address] [facility] Last Admin: 12/18/17 11:24 Dose: 17 gm Senna/Docusate Sodium (Senokot S 50 Mg-8.6 Mg) 1 tab PO Q8 PRN PRN Reason: Constipation Last Admin: 12/18/17 11:42 Dose: 1 tab Simethicone (Mylicon Chew Tab) 80 mg PO P[facility]S PRN PRN Reason: GI distress - Labs Labs: 12/18/17 06:30 12/18/17 06:30 PT 10.9 SECONDS (9.4-12.5) 12/13/17 21:26 INR 0.96 (0.93-1.08) 12/13/17 21:26 APTT 22.4 Seconds (25.1-36.5) L 12/13/17 21:26
[2017-12-19 06:57] LABS: HEMOGLOBIN 10.8 g/dL (12.0-16.0); MEAN CELL VOLUME 86.2 fl (80.0-105.0); MEAN CORPUSCULAR HEMOGLOBIN 28.6 pg (25.0-35.0); MEAN CORPUSCULAR HGB CONC 33.1 g/dl (31.0-37.0); MEAN PLATELET VOLUME 9.5 fl (7.0-11.0); RBC 3.78 [, 10^6/uL] (3.5-6.1); RED CELL DISTRIBUTION WIDTH 12.9 % (11.5-14.5); WHITE BLOOD COUNT 9.1 [, 10^3/ul] (4.5-11.0)
[2017-12-19] MEDS: Insulin Lispro (humaLOG) LOW Coverage SC SCH ×3 (08:05→18:48)
[2017-12-19 08:07] LABS: BLOOD UREA NITROGEN 5 mg/dL (7-21); CALCIUM 8.9 mg/dL (8.4-10.5); GFR AFRICAN-AMERICAN > 60; GFR NON-AFRICAN AMERICAN > 60
[2017-12-19] MEDS: Insulin Lispro 1 UNITS/0.01 ML SC SCH ×4 (08:19→19:08)
[2017-12-19] MEDS: Potassium Chloride 20 MEQ in Dextrose 5%/0.45% NS 1,000 ML IV SCH (09:18)
--- NOTE | 2017-12-19 10:39 | PN ---
DATE: 12/18/2017 SUBJECTIVE: The patient is 67-year-old female. The patient seen and examined on the bedside, just came back from scan. Feeling coughing. No nausea or vomiting. No diarrhea. No fever. No headache. She is having constipation, MiraLax given. Still has constipation. Still having urinary issues. No swelling of the legs. PHYSICAL EXAMINATION: VITAL SIGNS: Temperature 98.0, heart rate 102, respiratory rate 20, blood pressure 123/70 and pulse oximetry 93% on room air. HEENT: Head, normocephalic and atraumatic. Eyes, PERRLA. Extraocular muscles intact. Conjunctivae are clear. Nose is patent. Mucous membranes moist. NECK: Supple. No carotid bruits, JVD, or thyromegaly. CHEST: Bilaterally symmetrical. HEART: S1 and S2 positive. LUNGS: Clear to auscultation. ABDOMEN: Soft. Bowel sounds present. No organomegaly. EXTREMITIES: No edema. No cyanosis. NEUROLOGIC: The patient is awake and alert. Moving all four extremities. No focal deficits. MEDICATIONS: Aspirin, Azactam, Colace, heparin, Levemir, Lipitor, MiraLax, Mylicon, potassium, Protonix, Senokot , Tricor, Tylenol, and Zofran. LABORATORY DATA: Hemoglobin 10.8, hematocrit 33.1, white blood cell is 8.7 and platelets of 254. Sodium 133, potassium 4.1, BUN 5, creatinine 0.5. AST 17 and ALT 18. ASSESSMENT AND PLAN: Ms. Harmony Sequeira is a 67-year-old female status post ketoacidosis, urinary tract infection, constipation, bronchitis. Pulmonary point of view, doing better. Aspiration precautions. Uncontrolled diabetes mellitus, noncompliant, constipation, MiraLax given. Talk to the nurse, if it will not work, we will give MiraLax second time. Review Dr. Mcclellan's notes. CAT scan of abdomen and pelvis done, showed mild right-sided hydronephrosis with no obvious stone, and distention of the bladder. Seen by Dr. Alonzo, Infectious Disease. History of coronary artery disease, hypercholesterolemia, colitis, tachycardia, dyspnea, sepsis, urinary tract infection, Klebsiella in the urine as a source of cystitis. ALLERGIC TO PENICILLIN, VANCOMYCIN AND LEVAQUIN. Continue Azactam, had low-grade fever. No nephrolithiasis. We will call Urology consult. Repeat labs. We will followup. Ramya Proctor MD [facility]
[2017-12-19] MEDS: Pantoprazole 40 mg EC Tab PO SCH (12:10)
[2017-12-19] MEDS: POLYETHYLENE GLYCOL 3350 17 GM/Dose PACKET PO SCH (12:11)
--- NOTE | 2017-12-19 21:44 | PN ---
DATE: ENDOCRINOLOGY FOLLOWUP NOTE In room 562. SUBJECTIVE: This is a 67-year-old female with recent uncontrolled type 2 insulin-requiring diabetes presenting here with diabetic ketoacidosis and dehydration and is now being followed closely for metabolic management. Her glycemic levels are fluctuating, but much improved at this time and today's glucose levels have ranged from 167 to 206 mg/dL. Her latest chemistry showed a BUN of 5, sodium 132, potassium 4.2, chloride 96, CO2 of 29, glucose 239 and creatinine 0.5. Her bedtime glucose was still elevated at 281 mg/dL. So at this time, we will increase and titrate her Levemir to 36 units subcu at bedtime daily to start tonight. We will titrate incrementally as indicated to optimize metabolic control. We will also continue the low-dose correction scale using Humalog insulin as given to allow for dose equilibration. We will also continue the Humalog given as 14 units subcu t.i.d. before meals as given. We will titrate incrementally as indicated to optimize metabolic control. We will follow. Nancy Hall MD
[2017-12-19] MEDS: Insulin Detemir 100 units/ml Vial (Levemir) SC SCH (23:49)
[2017-12-20] MEDS: Insulin Lispro (humaLOG) LOW Coverage SC SCH ×5 (00:13→23:02)
--- NOTE | 2017-12-20 02:17 | PN ---
DATE: 12/19/2017 REFERRING PHYSICIAN: Dr. Proctor. SUBJECTIVE: She is out of bed to chair. Family is at the bedside. Night was unremarkable. Mild cough. No sputum production. No nausea. No vomiting. No diarrhea. No leg pain or leg swelling. OBJECTIVE: GENERAL: In no acute distress. VITAL SIGNS: Temperature 99, heart rate is 98, respiratory rate is 20, blood pressure 139/86, pulse oximetry 93% on room air. HEENT: Moist mucous membranes. No ulcer or thrush. NECK: Supple. No JVD. LUNGS: Has a fair airflow with few rhonchi. HEART: S1 and S2. ABDOMEN: Soft and nontender. No organomegaly. EXTREMITIES: No edema. NEUROLOGIC: Awake and alert. Follows simple commands. MEDICATIONS: She is on aspirin 81 mg daily, Colace 100 mg daily, heparin 5000 units subcutaneously q.12 hours, insulin coverage, Levemir 36 units at bedtime, Lipitor 40 mg daily, MiraLax 17 gm daily, simethicone 80 mg a.c. and at bedtime, Protonix 40 mg daily, Robitussin p.r.n. basis, TriCor 145 mg daily, Tylenol p.r.n., and Zofran p.r.n. basis. LABORATORY DATA: Show hemoglobin 10.8, hematocrit 32.6, WBC 9.1, and platelets 269. Sodium 132, potassium 4.2, chloride 96, bicarbonate 29, BUN 5, creatinine 0.5, glucose 239, calcium 8.9. Influenza antibody on 12/13 was negative but 12/16 influenza A antibody was 1 to 32 and influenza B antibody was 1 to 8. Urine culture has Klebsiella pneumoniae. ASSESSMENT AND PLAN: Status post diabetic ketoacidosis, urinary tract infection, constipation, bronchitis, influenza A and B antibodies are positive, present in no pulmonary symptoms. Antibodies as per Infectious Disease. Gastric prophylaxis and deep venous thrombosis prophylaxis. Continue insulin. Thank you, and we will follow with you. Logan Mcclellan MD
--- NOTE | 2017-12-20 02:22 | PN ---
DATE: 12/19/2017 SUBJECTIVE: The patient is in bed, in no acute distress, nontoxic. PHYSICAL EXAMINATION: VITAL SIGNS: Temperature is 99, blood pressure is 139/80, respiratory rate of 16. HEENT: Unremarkable. NECK: Supple. LUNGS: Have decreased breath sounds. HEART: Normal S1 and S2. ABDOMEN: Soft. LABORATORY DATA: Reveals a white count of 9.1, hemoglobin of 10, BUN of 5, creatinine of 0.5, and procalcitonin is 4.28. Influenza serology is positive 1 to 32. ASSESSMENT AND PLAN: A 67-year-old female with coronary artery disease, high cholesterol, diabetes, colitis, fever, tachycardia, number one is sepsis with Klebsiella in the urine as a source and cystitis. On aztreonam, today is day #4 of seven days. Flu titers, influenza positive. Rogelio Alonzo MD
[2017-12-20] MEDS: guaiFENesin 100 mg/5 ml Syrup UD PO PRN (02:34)
[2017-12-20 02:55] LABS: URINE BILIRUBIN NEGATIVE (NEGATIVE); URINE BLOOD LARGE (NEGATIVE); URINE GLUCOSE (UA) >=1000 mg/dL (NEGATIVE); URINE LEUKOCYTE ESTERASE NEGATIVE Leu/uL (NEGATIVE); URINE NITRATE NEGATIVE (NEGATIVE); URINE PROTEIN NEGATIVE mg/dL (<30 mg/dL)
[2017-12-20 03:09] LABS: URINE APPEARANCE SL CLOUDY (CLEAR); URINE COLOR YELLOW (YELLOW)
[2017-12-20 03:15] LABS: URINE RBC 15 - 20 /hpf (0-2)
[2017-12-20 03:16] LABS: URINE BACTERIA FEW (NEG)
--- NOTE | 2017-12-20 08:30 | CON ---
GENITOURINARY CONSULTATION DATE: 12/19/2017 CHIEF COMPLAINT: Fatigue. HISTORY OF PRESENT ILLNESS: This is a 67-year-old female who is seen in [facility]. The patient was admitted a few days ago for fatigue and flu-like symptoms. She has a history of diabetes and is reportedly very noncompliant. Urologically, the patient reports she had been voiding well. She has no dysuria, urinary frequency, or urgency. No gross hematuria. No flank pain or history of stones. She has been complaining of some constipation, but now reports moving her bowels without difficulty. During her admission, the patient had an urinary infection. She also has been found to have a right hydronephrosis and a consultation was then requested. PAST MEDICAL HISTORY: Significant for cardiac disease, uncontrolled diabetes, diabetic neuropathy, and insulin-dependent diabetes. MEDICATIONS: Include metformin. She was supposed to be on insulin, but did not take. Other medications including Azactam, aspirin, Colace, heparin subcutaneously, insulin coverage , Lipitor, MiraLax, simethicone, potassium, Robitussin, Senokot, TriCor, Tylenol, and Zofran. ALLERGIES: ALLERGIC TO PENICILLIN, VANCOMYCIN, AND LEVAQUIN. FAMILY HISTORY: Noncontributory. SOCIAL HISTORY: No smoking or EtOH use. REVIEW OF SYSTEMS: A 12-point review of systems was obtained. Positive for lethargy. Positive for constipation. Positive for numbness and tingling of her lower extremities. Positive for dizziness, which has resolved. Other systems are negative. PHYSICAL EXAMINATION: GENERAL: The patient is awake and alert in the room. She is in no acute distress. VITAL SIGNS: She is afebrile, temperature of 99, pulse 88, respirations 20, and BP 139/86. NECK: Supple. There is no noted adenopathy. CHEST: Reveals a normal inspiratory effort. CARDIAC: Shows positive S1 and S2. There is no peripheral edema. ABDOMEN: Her abdomen is soft and it is slightly distended. It is nontender. There is no rebound or guarding. There is no CVA tenderness. Bladder is not palpably distended. EXTREMITIES: There is no cyanosis or edema noted. LABORATORY DATA: WBC count was 15.3, which is now down to 9.1. Creatinine 0.5 with a GFR greater than 60. Glucose has been running high, last 223. Urinalysis on the was positive for blood, positive for nitrites, and positive for WBCs. Urine culture grew Klebsiella pneumoniae. Repeat culture was negative. On radiologic exam, the patient had a CT scan of the abdomen and pelvis from 12/17/2017, which showed the bladder was distended with small amount of air in the bladder likely from recent catheterization. There was mild right-sided hydronephrosis, no obvious stones. IMPRESSION AND PLAN: This is a 67-year-old female admitted with poorly controlled diabetes. Urologically,the patient had a Klebsiella urinary infection, which is now resolved. Per nursing, the patient just voided 800 mL at one time. Plan was to do a straight cath; however, the patient refused given a large volume void and this does not appear necessary at this time and her residual can be measured with a bladder scan. Hydronephrosis is likely secondary to having a full bladder at the time of the scan possibly there was some ureteral edema from the infection or she could have some aspect of a neurogenic bladder from her diabetes as she does have peripheral neuropathy. Plan for now will be to check a bladder scan for postvoid residual. As long as residual is less than 300 to 400 mL, I would leave the Gallardo catheter out. Plan will be to repeat a renal ultrasound in a few days as an outpatient when the patient has recovered to make sure that the hydronephrosis has resolved and is not increasing. The patient's renal function is normal. Thank you for allowing me to participate in the care of this patient. We will follow her with you. Rk Zhao MD
--- NOTE | 2017-12-20 08:47 | PN ---
DATE: 12/19/2017 ADDENDUM: The patient is 67-year-old female. MEDICATIONS: Aspirin, Azactam, Colace, heparin, Humalog, Levemir, Lipitor, MiraLax, Mylicon, Protonix, Robitussin, Senokot, TriCor, Tylenol, and Zofran. LABORATORY DATA: White blood cell 9.1, hemoglobin 10.8, hematocrit 32.6, and platelets 269. Sodium 132, potassium 4.2, BUN 5, creatinine 0.5 and glucose 218. ASSESSMENT AND PLAN: Ms. Harmony Sequeira is a 67-year-old lady with history of leukocytosis, improved; anemia; hypochloremia; uncontrolled insulin-dependent diabetes mellitus type 2. CAT scan of abdomen and pelvis done, reviewed by me. History of coronary artery disease, hypercholesterolemia, colitis, tachycardia, dyspnea, urinary tract infection, sepsis with Klebsiella and urine as a source of cystitis. The patient is ALLERGIC TO VANCOMYCIN, PENICILLIN, AND LEVAQUIN. So, we will continue aztreonam, day 3 of the 7 as per ID. Seen by Dr. Mcclellan, [employer] Operator as the patient is complaining again and again of coughing. Status post diabetic ketoacidosis, constipation now resolved, bronchitis. Aspiration precautions. Stool softener, antibiotics as per Infectious Disease. History of mild right-sided hydronephrosis with no obvious stone, distention of the bladder. Urology consult called, waiting for the input. We will follow up. Ramya Proctor MD MTDD
--- NOTE | 2017-12-20 08:52 | PN ---
DATE: 12/19/2017 SUBJECTIVE: The patient is a 67-year-old female. The patient is seen and examined at the bedside. Still complaining of abdominal discomfort and coughing. Dr. Doss ordered some Robitussin. Seen by Dr. Nancy Hall, rivet sorter. No nausea or vomiting. Has a good bowel movement. No fever. No chills. No headache. No dizziness. PHYSICAL EXAMINATION: VITAL SIGNS: Temperature 99, pulse 98, blood pressure 136/86, respirations 20. HEENT: Head is normocephalic and atraumatic. Eyes: PERRLA. Extraocular muscles are intact. Conjunctivae clear. Nose: Patent. NECK: Supple. No carotid bruit. No thyromegaly. CHEST: Bilaterally symmetrical. CARDIOPULMONARY: S1 and S2 positive. LUNGS: Clear to auscultation. ABDOMEN: Soft. Bowel sounds present. No organomegaly. EXTREMITIES: No edema. No cyanosis. NEUROLOGIC: The patient is awake and alert. Moving all four extremities. No focal deficit. Ramya Proctor MD
[2017-12-20] MEDS: Pantoprazole 40 mg EC Tab PO SCH (09:45)
[2017-12-20] MEDS: Insulin Lispro 1 UNITS/0.01 ML SC SCH ×3 (09:46→17:55)
[2017-12-20] MEDS: POLYETHYLENE GLYCOL 3350 17 GM/Dose PACKET PO SCH (09:47)
[2017-12-20] MEDS: Aztreonam 1 Gm in NS 100mL 100 ML IV SCH ×2 (15:20→22:57)
[2017-12-20] MEDS: Docusate-Senna 50 mg-8.6 mg Tab PO PRN (15:21)
--- NOTE | 2017-12-20 18:28 | CP.PCM.PN ---
Subjective - Date & Time of Evaluation Date of Evaluation: 12/20/17 Time of Evaluation: 12:15 - Subjective Subjective: Comfortable, no fevers. Objective - Vital Signs/Intake and Output Vital Signs (last 24 hours): Temp Pulse Resp BP Pulse Ox 97.4 F L 86 20 112/64 93 L 12/20/17 07:42 12/20/17 07:42 12/20/17 07:42 12/20/17 07:42 12/20/17 07:42 Intake and Output: 12/20/17 12/20/17 06:59 18:59 Intake Total 960 720 Balance 960 720 - Medications Medications: Current Medications Acetaminophen (Tylenol 325mg Tab) 650 mg PO Q4 PRN PRN Reason: Pain, severe (8-10) Last Admin: 12/16/17 08:48 Dose: 650 mg Aspirin (Aspirin Chewable) 81 mg PO DAILY [facility] Last Admin: 12/20/17 09:45 Dose: 81 mg Atorvastatin Calcium (Lipitor) 40 mg PO DIN [facility] Last Admin: 12/20/17 17:56 Dose: 40 mg Docusate Sodium (Colace) 100 mg PO DAILY [facility] Last Admin: 12/20/17 09:45 Dose: 100 mg Fenofibrate (Tricor) 145 mg PO DAILY [facility] Last Admin: 12/20/17 09:50 Dose: 145 mg Guaifenesin (Robitussin) 100 mg PO Q4H PRN PRN Reason: Cough Last Admin: 12/20/17 02:34 Dose: 100 mg Heparin Sodium (Porcine) (Heparin) 5,000 units SC Q12H [facility] PRN Reason: Protocol Last Admin: 12/20/17 11:39 Dose: Not Given Aztreonam (Azactam 1 Gm) 100 mls @ 100 mls/hr IV Q8 [facility] PRN Reason: Protocol Stop: 12/26/17 18:31 Last Admin: 12/20/17 15:20 Dose: 100 mls/hr Insulin Detemir (Levemir) 36 unit SC HS [facility] Last Admin: 12/19/17 23:49 Dose: 36 unit Insulin Human Lispro (Humalog Low) 0 units SC ACHS [facility] PRN Reason: Protocol Last Admin: 12/20/17 16:30 Dose: Not Given Insulin Human Lispro (Humalog) 14 units SC AC [facility] Last Admin: 12/20/17 17:55 Dose: 14 units Ondansetron HCl (Zofran Inj) 4 mg IVP Q6H PRN PRN Reason: Nausea/Vomiting Oseltamivir Phosphate (Tamiflu Cap) 75 mg PO BID [facility] PRN Reason: Protocol Stop: 12/25/17 11:23 Last Admin: 12/20/17 17:56 Dose: 75 mg Pantoprazole Sodium (Protonix Ec Tab) 40 mg PO ACB [facility] Last Admin: 12/20/17 09:45 Dose: 40 mg Polyethylene Glycol (Miralax) 17 gm PO DAILY [facility] Last Admin: 12/20/17 09:47 Dose: 17 gm Senna/Docusate Sodium (Senokot S 50 Mg-8.6 Mg) 1 tab PO Q8 PRN PRN Reason: Constipation Last Admin: 12/20/17 15:21 Dose: 1 tab Simethicone (Mylicon Chew Tab) 80 mg PO PCHS PRN PRN Reason: GI distress - Labs Labs: 12/19/17 06:15 12/19/17 06:15 PT 10.9 SECONDS (9.4-12.5) 12/13/17 21:26 INR 0.96 (0.93-1.08) 12/13/17 21:26 APTT 22.4 Seconds (25.1-36.5) L 12/13/17 21:26 - Constitutional Appears: Non-toxic - Head Exam Head Exam: NORMAL INSPECTION - Respiratory Exam Respiratory Exam: Decreased Breath Sounds - Cardiovascular Exam Cardiovascular Exam: +S1, +S2 - GI/Abdominal Exam GI & Abdominal Exam: Soft. absent: Tenderness Assessment and Plan - Assessment and Plan (Free Text) Plan: Assessment Sepsis due to cystitis CAD dyslipidemia history of colitis DM Plan Continue Azactam day 5 of 7 days will monitor clinically
[2017-12-20] MEDS: Insulin Detemir 100 units/ml Vial (Levemir) SC SCH (23:05)
--- NOTE | 2017-12-20 23:49 | PN ---
DATE: 12/20/2017 ENDOCRINOLOGY FOLLOWUP NOTE LOCATION: Room 562. SUBJECTIVE: This is a 67-year-old female with recent uncontrolled type 2 insulin-requiring diabetes now being followed closely for metabolic management. Her glucose levels are fluctuating but improved and the latest glucose levels have ranged from 158 to 182 and 223 mg/dL. It was 106 pre breakfast this morning as noted. LABORATORY DATA: Latest chemistry showed a BUN of 5, sodium of 132, potassium 4.2, chloride 96, CO2 29, glucose 239 and creatinine 0.5. PLAN: So at this time, we will continue the same basal and bolus insulin regimen to allow for dose equilibration and keep her on the Levemir at 36 units subcu at bedtime daily as given. We will also continue the Humalog given as 14 units subcu t.i.d. before meals as ordered. We will titrate incrementally as indicated to optimize metabolic control. We will follow. Nancy Hall MD
--- NOTE | 2017-12-21 02:07 | PN ---
DATE: 12/20/2017 REFERRING PHYSICIAN: Ramya Proctor MD SUBJECTIVE: The patient is lying in the bed, head 45 degrees. No headache. No rhinitis. No fever. Mild cough. No nausea, no vomiting, and no diarrhea. No leg pain or leg swelling. OBJECTIVE: GENERAL: In no acute distress. VITAL SIGNS: Temperature is 98, heart rate is 78, respiratory rate is 18, blood pressure is 132/76, and pulse ox is 97% on room air. HEENT: Moist mucous membranes. Crowded airway. NECK: Supple. No JVD. LUNGS: Have a fair airflow with a few rhonchi. HEART: S1 and S2. ABDOMEN: Soft and nontender. No organomegaly. EXTREMITIES: No edema. NEUROLOGIC: Awake and alert. Follows simple commands. MEDICATIONS: She is on aspirin 81 mg daily, Azactam 1 gram IV q. 8 hours, Colace 100 mg twice a day, insulin coverage, Levemir 36 units subcutaneously at bedtime, Lipitor 40 mg daily, MiraLax 17 g daily, simethicone 80 mg at bedtime, Protonix 40 mg daily, Robitussin on p.r.n. basis, Senokot on p.r.n. basis, Tamiflu is 75 mg twice a day, TriCor 145 mg daily, Tylenol p.r.n., Zofran on p.r.n. basis. LABORATORY DATA: Reviewed. Blood sugar is 223. Urine culture, Klebsiella. IMPRESSION: Status post diabetic ketoacidosis, urinary tract infection, constipation, bronchitis, being treated for flu. Pulmonary point of view, doing okay. Keep head at 45 degrees, bronchodilators. Antibiotics as per Infectious Disease. Gastric prophylaxis. Deep venous thrombosis prophylaxis. Thank you, and we will follow with you. Logan Mcclellan MD
[2017-12-21] MEDS: Aztreonam 1 Gm in NS 100mL 100 ML IV SCH ×3 (06:42→21:18)
[2017-12-21] MEDS: Docusate-Senna 50 mg-8.6 mg Tab PO PRN (09:41)
[2017-12-21] MEDS: Pantoprazole 40 mg EC Tab PO SCH (09:41)
[2017-12-21] MEDS: Insulin Lispro (humaLOG) LOW Coverage SC SCH ×4 (09:43→22:21)
[2017-12-21] MEDS: Insulin Lispro 1 UNITS/0.01 ML SC SCH ×3 (09:45→17:24)
[2017-12-21] MEDS: POLYETHYLENE GLYCOL 3350 17 GM/Dose PACKET PO SCH (09:46)
[2017-12-21] MEDS: Insulin Detemir 100 units/ml Vial (Levemir) SC SCH (22:23)
--- NOTE | 2017-12-22 00:28 | PN ---
DATE: ENDOCRINOLOGY FOLLOWUP NOTE LOCATION: In room 562. SUBJECTIVE: This is a 67-year-old female with recent uncontrolled type 2 insulin-requiring diabetes presenting here with diabetic ketoacidosis and dehydration, has now improved clinically and metabolically as noted thereof. Her glycemic levels are fluctuating, but much improved at this time and the glucose values have ranged from 108 to 114 and 158 and 217 mg/dL. LABORATORY DATA: Her latest chemistry showed a BUN of 5, sodium of 132, potassium 4.2, chloride 96, CO2 29, glucose 239 and creatinine 0.5. PLAN: So at this time, we will continue the same basal and bolus insulin regimen as ordered with Levemir given as 36 units subcu at bedtime daily as given. We will continue the Humalog given as 14 units subcu t.i.d. before meals as ordered. We will titrate incrementally as indicated to optimize metabolic control. We will follow and advise accordingly. Nancy Hall MD
--- NOTE | 2017-12-22 02:24 | PN ---
DATE: 12/21/2017 SUBJECTIVE: The patient is in bed, in no acute distress. ALLERGIES: THE PATIENT IS ALLERGIC TO VANCOMYCIN, PENICILLIN, AND LEVAQUIN. PHYSICAL EXAMINATION: VITAL SIGNS: Temperature is 98, blood pressure is 120/70, and respiratory rate of 16. HEENT: Examination of HEENT is unremarkable. NECK: Supple. LUNGS: Have decreased breath sounds. HEART: Normal S1 and S2. ABDOMEN: Soft and nontender. LABORATORY DATA: Reveals a white count of 9.1 and hemoglobin of 10. BUN of 5 and creatinine of 0.5. Procalcitonin is 4.28. Microbiology reveals a Klebsiella pneumonia in the urine. The blood cultures are negative and it is sensitive to quinolone. ASSESSMENT AND PLAN: This is a 67-year-old female with Klebsiella cystitis, coronary artery disease, dyslipidemia, history of colitis, and diabetes. On Azactam with complete 7 days, today is day number 6 of 7 days for cystitis. Rogelio Alonoz MD
--- NOTE | 2017-12-22 04:52 | PN ---
PULMONARY PROGRESS NOTE DATE: 12/21/2017 REFERRING PHYSICIAN: Ramya Proctor MD SUBJECTIVE: She is lying in the bed, sleepy, and body aches and pain. Mild cough. No nausea. No vomiting, diarrhea, leg pain, or leg swelling. PHYSICAL EXAMINATION: GENERAL: In no acute distress. VITAL SIGNS: Temperature is 98, heart rate is 86, respiratory rate is 18, blood pressure is 128/73, and pulse oximetry is 95% on room air. HEENT: Moist mucous membranes. No ulcer or thrush noted. NECK: Supple. No JVD. LUNGS: Has a fair airflow with few rhonchi. HEART: S1 and S2. ABDOMEN: Soft and nontender. No organomegaly. EXTREMITIES: There is no edema. NEUROLOGIC: Awake, alert, and follows simple commands. MEDICATIONS: She is on aspirin 81 mg daily, Azactam 1 g IV q.8 hours, Colace 100 mg twice a day, insulin coverage, Levemir 36 units subcutaneously at bedtime, Lipitor 40 mg daily, MiraLax 17 g daily, simethicone 80 mg p.c. at bedtime p.r.n., Protonix 40 mg daily, Robitussin 100 mg q.4 hours, Senokot one tablet q.8 hours p.r.n., Tamiflu 75 mg twice a day, TriCor 145 mg daily, Tylenol p.r.n., and Zofran p.r.n. basis. LABORATORY DATA: Shows blood sugar 137. Microbiology; urine culture has Klebsiella pneumoniae. IMPRESSION AND PLAN: Status post diabetic ketoacidosis, urinary tract infection, constipation, bronchitis, and flu antibodies positive. Pulmonary point of view, keep head at 45 degrees, aspiration precaution, on antibiotics, gastric prophylaxis, and deep venous thrombosis prophylaxis. Thank you and we will follow with you. Logan Mcclellan MD
[2017-12-22] MEDS: Aztreonam 1 Gm in NS 100mL 100 ML IV SCH ×2 (05:35→14:23)
[2017-12-22] MEDS: POLYETHYLENE GLYCOL 3350 17 GM/Dose PACKET PO SCH (10:30)
[2017-12-22] MEDS: Pantoprazole 40 mg EC Tab PO SCH (10:30)
[2017-12-22] MEDS: Insulin Lispro (humaLOG) LOW Coverage SC SCH ×4 (10:31→22:06)
[2017-12-22] MEDS: Insulin Lispro 1 UNITS/0.01 ML SC SCH ×2 (10:31→12:00)
[2017-12-22] MEDS: guaiFENesin 100 mg/5 ml Syrup UD PO PRN (11:30)
[2017-12-22] MEDS ORDERED: Insulin Lispro 1 UNITS/0.01 ML SC SCH (16:34)
--- NOTE | 2017-12-22 18:21 | PN ---
DATE: 12/21/2017 SUBJECTIVE: The patient was seen and examined under bedside. Looking a little bit better, still in total isolation. Still complaining about body aches and mild cough. No nausea, vomiting, or diarrhea. No hematuria or hematochezia. No swelling of the legs. No chest pain or palpitations. No hematuria or hematochezia. PHYSICAL EXAMINATION: VITAL SIGNS: Temperature is 98, heart rate 86, respiratory rate is 18, and blood pressure 120/70, pulse oximetry 95% on room air. HEENT: Head normocephalic, atraumatic. Eyes: PERRLA. Extraocular muscles intact. Conjunctivae clear. Nose patent. Mucous membranes moist. NECK: Supple. No carotid bruits. No JVD or thyromegaly. CHEST: Bilaterally symmetrical. HEART: S1 and S2 positive. LUNGS: Clear to auscultation. ABDOMEN: Soft. Bowel sounds positive. No organomegaly. EXTREMITIES: No edema. No cyanosis. NEUROLOGIC: The patient is awake and alert. Moving all 4 extremities. No focal deficit. MEDICATIONS: Aspirin, Azactam, Colace, insulin, Levemir, Lipitor, MiraLax, simethicone, Protonix, Robitussin, Senokot, Tamiflu, TriCor, and Zoloft. LABORATORY DATA: Sugar of 137. We do not have labs today, but we will repeat labs tomorrow. ASSESSMENT AND PLAN: Ms. Harmony Sequeira is a 67-year-old lady was seen and examined by me on 12/21/2017, status post diabetic ketoacidosis; urinary tract infection; constipation; flu; bronchitis, getting Tamiflu. The patient is getting antibiotics, deep vein thrombosis prophylaxis. Reviewed Dr. Mcclellan's notes. Seen by Dr. Alonzo, Infectious Disease, and Dr. Nancy Zarco, right of way buyer . The patient had Klebsiella cystitis, coronary artery disease, dyslipidemia, history of colitis. On Azactam, complete day 7, on 12/21/2017 was the day 6 of the 7 days, for cystitis. We will follow. Ramya Proctor MD [facility] # [id number]
--- NOTE | 2017-12-22 21:31 | PN ---
DATE: ENDOCRINOLOGY FOLLOWUP NOTE LOCATION: In room 562. SUBJECTIVE: This is a 67-year-old female with recent uncontrolled type 2 insulin requiring diabetes, presenting here with diabetic ketoacidosis and dehydration and since then improved clinically and metabolically as noted thereof. Her glucose levels today have ranged from 82 to 128 and 162 mg/dL. Because of the variability for oral intake, we will lower now her Humalog to 10 units subq t.i.d. before meals to start today at dinner time as ordered. We will titrate incrementally as indicated to optimize metabolic control. We will also continue the low-dose correction scale using Humalog insulin as given. We will also modify her basal insulin and lower the Levemir to 30 units subq at bedtime daily to start tonight. We will obtain serial chemistries and supplement accordingly as needed. We will follow. Nancy Hall MD
[2017-12-22] MEDS ORDERED: Insulin Detemir 100 units/ml Vial (Levemir) SC SCH (22:00)
--- NOTE | 2017-12-23 03:25 | PN ---
DATE: 12/22/2017 PULMONARY PROGRESS NOTE REFERRING PHYSICIAN: Ramya Proctor MD SUBJECTIVE: She is out of bed to chair. Feels better. No headache. No rhinitis. Still have a mild cough. No nausea. No vomiting. No diarrhea. No leg pain or leg swelling. Has hypoglycemic episode this morning, was perspiring and blood sugar was 80 at that time. PHYSICAL EXAMINATION: GENERAL: In no acute distress. VITAL SIGNS: Temperature is 98, heart rate is 85, respiratory rate is 20, blood pressure is 124/75 and pulse oximetry 94% on room air. HEENT: Moist mucous membrane. Crowded airway. NECK: Supple. No JVD. LUNGS: Has a fair airflow with few rhonchi. HEART: S1 and S2. ABDOMEN: Soft and nontender. No organomegaly. EXTREMITIES: No edema. NEUROLOGIC: Awake and alert. Follows simple commands. MEDICATIONS: She is on aspirin 81 mg daily, Colace 100 mg daily, she is getting Humalog insulin lispro 10 units a.c. insulin coverage, Levemir 30 units subq at bedtime, Lipitor 40 mg daily, MiraLax 17 g daily, simethicone 80 mg p.c., at bedtime p.r.n. Protonix 40 mg daily, Robitussin 100 mg q. 4 hours p.r.n., Senokot p.r.n. basis, Tamiflu 75 mg twice a day, TriCor 145 mg daily, Tylenol p.r.n. and Zofran p.r.n. basis. LABORATORY DATA: Reviewed and shows blood sugar this morning was 82. IMPRESSION AND PLAN: Status post diabetic ketoacidosis, urinary tract infection, constipation, bronchitis, influenza infection. Pulmonary point of view, doing okay. Continue bronchodilator, antibiotics. Gastric prophylaxis. Deep venous thrombosis prophylaxis. Thank you and we will follow with you. Logan Mcclellan MD
--- NOTE | 2017-12-23 05:06 | PN ---
DATE: SUBJECTIVE: The patient was seen and examined at the bedside, looking comfortable, feeling better. Today, she has episode of hypoglycemia. According to her 84 is hypoglycemia, but is actually within normal limits. Unclaimed Property Manager is on the case. At that moment she felt dizziness, fatigue, tremulous, but no nausea, vomiting or diarrhea. No hematuria or hematochezia. No swelling of the legs. No chest pain or palpitations. No fever. No chills. PHYSICAL EXAMINATION VITAL SIGNS: Temperature 98.4, pulse 85, blood pressure 125/75 and respiratory rate 20. HEENT: Head is normocephalic and atraumatic. Eyes, PERRLA. Extraocular muscles are intact. Conjunctivae clear. Nose is patent. Mucous membranes moist. NECK: Supple. No carotid bruits, no JVD or thyromegaly. CHEST: Bilaterally symmetrical. HEART: S1 and S2 positive. LUNGS: Clear to auscultation. ABDOMEN: Soft. Bowel sounds present. No organomegaly. EXTREMITIES: No edema. No cyanosis. NEUROLOGIC: The patient is awake and alert. Moving all four extremities. No focal deficits. MEDICATIONS: Aspirin, Colace, insulin, Levemir, Lipitor, MiraLax, Mylicon, Protonix, Robitussin, Senokot, Tamiflu, TriCor, Tylenol and Zofran. LABORATORY DATA: White blood cell 9.1, hemoglobin 10.8, hematocrit 32.6 and platelets was 269. Glucose 268. There was 82 also. ASSESSMENT AND PLAN: Ms. Harmony Sequeira is a 67-year-old my private patient, status post diabetic ketoacidosis, Unclaimed Property Manager is on the case; urinary tract infection; constipation, getting treatment; bronchitis; flu antibody positive, getting Tamiflu, getting antibiotics; aspiration precautions; gastro prophylaxis; deep vein thrombosis prophylaxis. The patient was still on droplet isolation. We will discontinue after discussing with Infectious Disease. The patient is very noncompliant, urged to be compliant. Unclaimed Property Manager, Dr. Nancy Hall saw the patient, appreciated her notes. The patient has recent admission for uncontrolled diabetes mellitus type II insulin requiring; diabetic ketoacidosis; dehydration. The patient improved clinically and metabolically as noted therefore. Because of her sugar range ranging 80 to 128, Dr. Nancy Hall changed the insulin, appreciate it. We will followup. Ramya Proctor MD MTDFrankie
[2017-12-23 07:21] LABS: HEMOGLOBIN 11.3 g/dL (12.0-16.0); MEAN CORPUSCULAR HEMOGLOBIN 28.3 pg (25.0-35.0); MEAN CORPUSCULAR HGB CONC 31.6 g/dl (31.0-37.0); RED CELL DISTRIBUTION WIDTH 13.1 % (11.5-14.5); WHITE BLOOD COUNT 9.2 [, 10^3/ul] (4.5-11.0)
[2017-12-23 07:29] LABS: MEAN CELL VOLUME 89.5 fl (80.0-105.0)
[2017-12-23 07:36] LABS: ALB/GLOB RATIO 0.9 (1.1-1.8); ALT/SGPT 23 U/L (7-56); AST/SGOT 33 U/L (14-36); BLOOD UREA NITROGEN 15 mg/dL (7-21); CALCIUM 9.7 mg/dL (8.4-10.5); GFR AFRICAN-AMERICAN > 60; GFR NON-AFRICAN AMERICAN > 60
[2017-12-23 07:55] VITALS: BP 126/72; PULSE 80; RESP 18; TEMP 98.2; O2SAT 94
[2017-12-23] MEDS: Insulin Lispro (humaLOG) LOW Coverage SC SCH (08:00)
--- NOTE | 2017-12-23 08:53 | PN ---
DATE: 12/21/2017 SUBJECTIVE: The patient reports she is voiding well. Per nursing, she is voiding large amounts of urine per void, although it is not recorded on her I's and O's. She is afebrile. Temperature of 98.6, pulse 86, and BP 128/73. No recent renal function tests have been done. Per nursing, she did not have a bladder scan as of yet. I spoke to nursing and they will to do a bladder scan at some point after her next void. Plan will be to repeat a renal ultrasound in a few weeks as an outpatient to see if the hydronephrosis has resolved with treatment of her urinary infection. The patient should follow up with a urologist as an outpatient as she may have some component of neurogenic bladder from diabetes. Rk Zhao MD
--- NOTE | 2017-12-23 09:07 | PN ---
DATE: 12/22/2017 SUBJECTIVE: The patient is in bed, in no acute distress, nontoxic. PHYSICAL EXAMINATION VITAL SIGNS: Temperature is 98, blood pressure is 120/70, respiratory rate of 18, and heart rate of 98. HEENT: Unremarkable NECK: Supple. LUNGS: Have decreased breath sounds. HEART: Normal S1 and S2. ABDOMEN: Soft, nontender. LABORATORY EXAMINATION: Reveals a white count of 9000, and the patient's creatinine is 0.5. Urinalysis is noted and serology is positive for 1 to 32. Review of orders reveal the patient to be on omeprazole and the patient's Azactam was dropped from the medications. ASSESSMENT AND PLAN: This is a 67-year-old female with Klebsiella cystitis, actually the patient had 7 days of Azactam, and the patient with dyslipidemia, coronary artery disease, colitis and diabetes. She has completed the Azactam therapy and today is day #3 of Tamiflu, would complete 5 days. Rogelio Alonzo MD
[2017-12-23] MEDS: POLYETHYLENE GLYCOL 3350 17 GM/Dose PACKET PO SCH (10:09)
[2017-12-23] MEDS: Docusate-Senna 50 mg-8.6 mg Tab PO PRN (10:14)
[2017-12-23] MEDS: Pantoprazole 40 mg EC Tab PO SCH (10:14)
--- NOTE | 2017-12-23 12:15 | CP.PCM.DIS ---
<AnitaYanet Sandovalriz - Last Filed: 12/23/17 14:58> Provider - Provider Date of Admission: 12/14/17 00:51 Attending physician: Ramya Proctor MD Primary care physician: Ramya Proctor MD Consults: Endocrine - Dr. Hall Pulmonary - Dr. Mcclellan ID - Dr. Alonzo Time Spent in preparation of Discharge (in minutes): 35 Diagnosis - Discharge Diagnosis (1) Constipation Status: Acute (2) Hypophosphatemia Status: Acute (3) Hyperthyroidism Status: Acute (4) UTI due to Klebsiella species Status: Acute (5) Sepsis Status: Acute (6) Sinusitis Status: Acute (7) High cholesterol Status: Acute (8) DKA (diabetic ketoacidosis) Status: Acute (9) Hyperglycemia Status: Acute (10) Hyponatremia Status: Acute (11) Leukocytosis Status: Acute (12) Influenza Status: Acute Hospital Course - Lab Results Lab Results: Micro Results 12/14/17 02:15 Blood-Venous Blood Culture - Final NO GROWTH AFTER 5 DAYS 12/14/17 02:15 Blood-Venous Gram Stain - Final TEST NOT PERFORMED 12/17/17 12:13 Urine,Clean Catch Urine Culture - Final No Growth (<1,000 CFU/ML) 12/14/17 13:30 Urine Urine Culture - Final Klebsiella Pneumoniae Ssp Pneu 12/14/17 02:40 Naris MRSA Culture (Admit) - Final MRSA NOT DETECTED Most Recent Lab Values WBC 9.2 10^3/ul (4.5-11.0) 12/23/17 06:30 RBC 4.00 10^6/uL (3.5-6.1) 12/23/17 06:30 Hgb 11.3 g/dL (12.0-16.0) L 12/23/17 06:30 Hct 35.8 % (36.0-48.0) L 12/23/17 06:30 MCV 89.5 fl (80.0-105.0) D 12/23/17 06:30 MCH 28.3 pg (25.0-35.0) 12/23/17 06:30 MCHC 31.6 g/dl (31.0-37.0) 12/23/17 06:30 RDW 13.1 % (11.5-14.5) 12/23/17 06:30 Plt Count 395 10^3/uL (120.0-450.0) 12/23/17 06:30 MPV 9.0 fl (7.0-11.0) 12/23/17 06:30 Gran % 65.7 % (50.0-68.0) 12/18/17 06:30 Lymph % (Auto) 19.7 % (22.0-35.0) L 12/18/17 06:30 Kern % (Auto) 13.1 % (1.0-6.0) H 12/18/17 06:30 Eos % (Auto) 1.3 % (1.5-5.0) L 12/18/17 06:30 Baso % (Auto) 0.2 % (0.0-3.0) 12/18/17 06:30 Gran # 5.69 (1.4-6.5) 12/18/17 06:30 Lymph # 1.7 (1.2-3.4) 12/18/17 06:30 Kern # 1.1 (0.1-0.6) H 12/18/17 06:30 Eos # 0.1 (0.0-0.7) 12/18/17 06:30 Baso # 0.02 K/mm3 (0.0-2.0) 12/18/17 06:30 Neutrophils % (Manual) 81 % (50.0-70.0) H 12/14/17 13:15 Band Neutrophils % 4 % (0-2) H 12/14/17 13:15 Lymphocytes % (Manual) 4 % (22.0-35.0) L 12/14/17 13:15 Monocytes % (Manual) 11 % (1.0-6.0) H 12/14/17 13:15 Platelet Evaluation Normal (NORMAL) 12/14/17 13:15 PT 10.9 SECONDS (9.4-12.5) 12/13/17 21:26 INR 0.96 (0.93-1.08) 12/13/17 21:26 APTT 22.4 Seconds (25.1-36.5) L 12/13/17 21:26 pO2 57 mm/Hg (30-55) H 12/14/17 08:45 VBG pH 7.18 (7.32-7.43) L* 12/14/17 08:45 VBG pCO2 42.0 (40-60) 12/14/17 08:45 VBG HCO3 15.7 mmol/l (21-28) L 12/14/17 08:45 VBG Total CO2 17.0 mmol.L (22-28) L 12/14/17 08:45 VBG O2 Sat (Calc) 91.8 % (40-65) H 12/14/17 08:45 VBG Base Excess -12.2 mmol/L (0.0-2.0) L 12/14/17 08:45 VBG Potassium 4.1 mmol/L (3.6-5.2) 12/14/17 08:45 Sodium 135.0 mmol/L (132-148) 12/14/17 08:45 Chloride 102.0 mmol/L (98-107) 12/14/17 08:45 Glucose 269 mg/dl (65-105) H 12/14/17 08:45 Lactate 0.9 mmol/L (0.7-2.1) 12/14/17 08:45 FiO2 21.0 % 12/14/17 08:45 Sodium 138 mmol/L (132-148) 12/23/17 06:30 Potassium 4.6 mmol/L (3.6-5.0) 12/23/17 06:30 Chloride 100 mmol/L (98-107) 12/23/17 06:30 Carbon Dioxide 31 mmol/L (21-33) 12/23/17 06:30 Anion Gap 11 (10-20) 12/23/17 06:30 BUN 15 mg/dL (7-21) 12/23/17 06:30 Creatinine 0.6 mg/dl (0.7-1.2) L 12/23/17 06:30 Est GFR ( Amer) > 60 12/23/17 06:30 Est GFR (Non-Af Amer) > 60 12/23/17 06:30 POC Glucose (mg/dL) 190 mg/dL (65-110) H 12/23/17 07:40 Random Glucose 203 mg/dL (70-110) H 12/23/17 06:30 Hemoglobin A1c 15.2 % (4.2-6.5) H 12/14/17 13:30 C-Peptide 0.30 ng/mL (0.80-3.85) L 12/16/17 05:48 Calcium 9.7 mg/dL (8.4-10.5) 12/23/17 06:30 Phosphorus 1.5 mg/dL (2.5-4.5) L 12/14/17 13:15 Magnesium 2.0 mg/dL (1.7-2.2) 12/14/17 13:15 Iron 27 ug/dL (45-180) L 12/15/17 05:00 TIBC 240 ug/dL (265-497) L 12/15/17 05:00 % Saturation 11 % (20-55) L 12/15/17 05:00 Total Bilirubin 0.3 mg/dL (0.2-1.3) 12/23/17 06:30 AST 33 U/L (14-36) 12/23/17 06:30 ALT 23 U/L (7-56) 12/23/17 06:30 Alkaline Phosphatase 59 U/L (38-126) 12/23/17 06:30 Lactate Dehydrogenase 393 U/L (333-699) 12/13/17 21:26 Total Creatine Kinase 73 U/L (35-230) 12/13/17 21:26 Troponin I < 0.01 ng/mL 12/14/17 08:45 Total Protein 6.6 g/dL (5.8-8.3) 12/23/17 06:30 Albumin 3.0 g/dL (3.0-4.8) 12/23/17 06:30 Globulin 3.5 gm/dL 12/23/17 06:30 Albumin/Globulin Ratio 0.9 (1.1-1.8) L 12/23/17 06:30 Triglycerides 205 mg/dL (35-160) H 12/15/17 05:00 Cholesterol 182 mg/dL (130-200) 12/15/17 05:00 LDL Cholesterol Direct 107 mg/dL (0-129) 12/15/17 05:00 HDL Cholesterol 38 mg/dL (29-60) 12/15/17 05:00 Lipase 54 U/L (23-300) 12/13/17 21:26 Vitamin B12 > 1000 pg/mL (239-931) H 12/15/17 05:00 Folate 6.9 ng/mL 12/15/17 05:00 Procalcitonin 4.28 NG/ML (0.19-0.49) H 12/14/17 02:15 TSH 3rd Generation 0.34 mIU/mL (0.46-4.68) L 12/16/17 05:48 Venous Blood Potassium 4.1 mmol/L (3.6-5.2) 12/14/17 08:45 Urine Color Yellow (YELLOW) 12/20/17 02:46 Urine Appearance Sl cloudy (CLEAR) 12/20/17 02:46 Urine pH 7.0 (4.7-8.0) 12/20/17 02:46 Ur Specific [place] 1.010 (1.005-1.035) 12/20/17 02:46 Urine Protein Negative mg/dL (<30 mg/dL) 12/20/17 02:46 Urine Glucose (UA) >=1000 mg/dL (NEGATIVE) 12/20/17 02:46 Urine Ketones Negative mg/dL (NEGATIVE) 12/20/17 02:46 Urine Blood Large (NEGATIVE) H 12/20/17 02:46 Urine Nitrate Negative (NEGATIVE) 12/20/17 02:46 Urine Bilirubin Negative (NEGATIVE) 12/20/17 02:46 Urine Urobilinogen 1.0 E.U./dL (<1 E.U./dL) H 12/20/17 02:46 Ur Leukocyte Esterase Negative Get/uL (NEGATIVE) 12/20/17 02:46 Urine RBC 15 - 20 /hpf (0-2) 12/20/17 02:46 Urine WBC 2 - 5 /hpf (0-6) 12/20/17 02:46 Ur Epithelial Cells 1 - 3 /hpf (0-5) 12/20/17 02:46 Urine Bacteria Few (NEG) 12/20/17 02:46 Influenza Typ A,B (EIA) Negative for flu a/b (NEGATIVE) 12/13/17 20:20 Influenza Type A Ab 1:32 titer (<1:8) H 12/16/17 05:48 Influenza Type B Ab 1:8 titer (<1:8) H 12/16/17 05:48 - Hospital Course Hospital Course: 67 yr female w/ history of noncompliance, diabetes (insulin dependent), neuropathy, dyslipidemia CAD, colitis & hemorrhoids. Admitted for DKA. Per Endocrine, pt will take Levemir 30 subq HS/ humalog sliding scale 10 units q TIB. Blood sugar is stable. Urine culture (+) Kleb Pneumoniae treated w/ azactam. Pt treated for flu w/ tamiflu. Cleared for discharge home. Reviewed: CT abd/pelvis = mild R hydronephrosis (-) stone (+) bladder distension CT head = mild atrophy & mild chronic small vessle ischemic disease, mild sinus disease CXR = WNL ECG = NSR - Date & Time of H&P Date of H&P: 12/23/17 Time of H&P: 10:45 Discharge Exam - Head Exam Head Exam: NORMAL INSPECTION - Eye Exam Eye Exam: EOMI, Normal appearance, PERRL Pupil Exam: NORMAL ACCOMODATION, PERRL - ENT Exam ENT Exam: Mucous Membranes Moist - Neck Exam Neck exam: Full Rom - Respiratory Exam Respiratory Exam: Clear to PA & Lateral, NORMAL BREATHING PATTERN, UNREMARKABLE - Cardiovascular Exam Cardiovascular Exam: +S1, +S2 - GI/Abdominal Exam GI & Abdominal Exam: Normal Bowel Sounds - Extremities Exam Extremities exam: full ROM, normal inspection - Back Exam Back exam: FULL ROM - Neurological Exam Neurological exam: Alert, CN II-XII Intact, Normal Gait, Oriented x3, Reflexes Normal - Psychiatric Exam Psychiatric exam: Normal Affect, Normal Mood - Skin Skin Exam: Dry, Intact, Normal Color, Warm Discharge Plan - Discharge Medications Prescriptions: Oseltamivir Phosphate [Tamiflu] 75 mg PO BID #4 capsule - Follow Up Plan Condition: FAIR Disposition: HOME/ ROUTINE Instructions: Asthma (GEN), Pneumococcal Vaccine for Adults (GEN), Influenza ( GEN), Basic Carbohydrate Counting (DC), Sepsis (GEN) Additional Instructions: Follow up with Dr. Proctor on 2017 at 11am Return to emergency room if symptom worsen. Referrals: Ramya Proctor MD [Primary Care Provider] - <Ramya Proctor - Last Filed: 12/23/17 20:22> Provider - Provider Date of Admission: 12/14/17 00:51 Attending physician: Ramya Proctor MD Primary care physician: Ramya Proctor MD Hospital Course - Lab Results Lab Results: Micro Results 12/14/17 02:15 Blood-Venous Blood Culture - Final NO GROWTH AFTER 5 DAYS 12/14/17 02:15 Blood-Venous Gram Stain - Final TEST NOT PERFORMED 12/17/17 12:13 Urine,Clean Catch Urine Culture - Final No Growth (<1,000 CFU/ML) 12/14/17 13:30 Urine Urine Culture - Final Klebsiella Pneumoniae Ssp Pneu 12/14/17 02:40 Naris MRSA Culture (Admit) - Final MRSA NOT DETECTED Most Recent Lab Values WBC 9.2 10^3/ul (4.5-11.0) 12/23/17 06:30 RBC 4.00 10^6/uL (3.5-6.1) 12/23/17 06:30 Hgb 11.3 g/dL (12.0-16.0) L 12/23/17 06:30 Hct 35.8 % (36.0-48.0) L 12/23/17 06:30 MCV 89.5 fl (80.0-105.0) D 12/23/17 06:30 MCH 28.3 pg (25.0-35.0) 12/23/17 06:30 MCHC 31.6 g/dl (31.0-37.0) 12/23/17 06:30 RDW 13.1 % (11.5-14.5) 12/23/17 06:30 Plt Count 395 10^3/uL (120.0-450.0) 12/23/17 06:30 MPV 9.0 fl (7.0-11.0) 12/23/17 06:30 Gran % 65.7 % (50.0-68.0) 12/18/17 06:30 Lymph % (Auto) 19.7 % (22.0-35.0) L 12/18/17 06:30 Kern % (Auto) 13.1 % (1.0-6.0) H 12/18/17 06:30 Eos % (Auto) 1.3 % (1.5-5.0) L 12/18/17 06:30 Baso % (Auto) 0.2 % (0.0-3.0) 12/18/17 06:30 Gran # 5.69 (1.4-6.5) 12/18/17 06:30 Lymph # 1.7 (1.2-3.4) 12/18/17 06:30 Kern # 1.1 (0.1-0.6) H 12/18/17 06:30 Eos # 0.1 (0.0-0.7) 12/18/17 06:30 Baso # 0.02 K/mm3 (0.0-2.0) 12/18/17 06:30 Neutrophils % (Manual) 81 % (50.0-70.0) H 12/14/17 13:15 Band Neutrophils % 4 % (0-2) H 12/14/17 13:15 Lymphocytes % (Manual) 4 % (22.0-35.0) L 12/14/17 13:15 Monocytes % (Manual) 11 % (1.0-6.0) H 12/14/17 13:15 Platelet Evaluation Normal (NORMAL) 12/14/17 13:15 PT 10.9 SECONDS (9.4-12.5) 12/13/17 21:26 INR 0.96 (0.93-1.08) 12/13/17 21:26 APTT 22.4 Seconds (25.1-36.5) L 12/13/17 21:26 pO2 57 mm/Hg (30-55) H 12/14/17 08:45 VBG pH 7.18 (7.32-7.43) L* 12/14/17 08:45 VBG pCO2 42.0 (40-60) 12/14/17 08:45 VBG HCO3 15.7 mmol/l (21-28) L 12/14/17 08:45 VBG Total CO2 17.0 mmol.L (22-28) L 12/14/17 08:45 VBG O2 Sat (Calc) 91.8 % (40-65) H 12/14/17 08:45 VBG Base Excess -12.2 mmol/L (0.0-2.0) L 12/14/17 08:45 VBG Potassium 4.1 mmol/L (3.6-5.2) 12/14/17 08:45 Sodium 135.0 mmol/L (132-148) 12/14/17 08:45 Chloride 102.0 mmol/L (98-107) 12/14/17 08:45 Glucose 269 mg/dl (65-105) H 12/14/17 08:45 Lactate 0.9 mmol/L (0.7-2.1) 12/14/17 08:45 FiO2 21.0 % 12/14/17 08:45 Sodium 138 mmol/L (132-148) 12/23/17 06:30 Potassium 4.6 mmol/L (3.6-5.0) 12/23/17 06:30 Chloride 100 mmol/L (98-107) 12/23/17 06:30 Carbon Dioxide 31 mmol/L (21-33) 12/23/17 06:30 Anion Gap 11 (10-20) 12/23/17 06:30 BUN 15 mg/dL (7-21) 12/23/17 06:30 Creatinine 0.6 mg/dl (0.7-1.2) L 12/23/17 06:30 Est GFR ( Amer) > 60 12/23/17 06:30 Est GFR (Non-Af Amer) > 60 12/23/17 06:30 POC Glucose (mg/dL) 190 mg/dL (65-110) H 12/23/17 07:40 Random Glucose 203 mg/dL (70-110) H 12/23/17 06:30 Hemoglobin A1c 15.2 % (4.2-6.5) H 12/14/17 13:30 C-Peptide 0.30 ng/mL (0.80-3.85) L 12/16/17 05:48 Calcium 9.7 mg/dL (8.4-10.5) 12/23/17 06:30 Phosphorus 1.5 mg/dL (2.5-4.5) L 12/14/17 13:15 Magnesium 2.0 mg/dL (1.7-2.2) 12/14/17 13:15 Iron 27 ug/dL (45-180) L 12/15/17 05:00 TIBC 240 ug/dL (265-497) L 12/15/17 05:00 % Saturation 11 % (20-55) L 12/15/17 05:00 Total Bilirubin 0.3 mg/dL (0.2-1.3) 12/23/17 06:30 AST 33 U/L (14-36) 12/23/17 06:30 ALT 23 U/L (7-56) 12/23/17 06:30 Alkaline Phosphatase 59 U/L (38-126) 12/23/17 06:30 Lactate Dehydrogenase 393 U/L (333-699) 12/13/17 21:26 Total Creatine Kinase 73 U/L (35-230) 12/13/17 21:26 Troponin I < 0.01 ng/mL 12/14/17 08:45 Total Protein 6.6 g/dL (5.8-8.3) 12/23/17 06:30 Albumin 3.0 g/dL (3.0-4.8) 12/23/17 06:30 Globulin 3.5 gm/dL 12/23/17 06:30 Albumin/Globulin Ratio 0.9 (1.1-1.8) L 12/23/17 06:30 Triglycerides 205 mg/dL (35-160) H 12/15/17 05:00 Cholesterol 182 mg/dL (130-200) 12/15/17 05:00 LDL Cholesterol Direct 107 mg/dL (0-129) 12/15/17 05:00 HDL Cholesterol 38 mg/dL (29-60) 12/15/17 05:00 Lipase 54 U/L (23-300) 12/13/17 21:26 Vitamin B12 > 1000 pg/mL (239-931) H 12/15/17 05:00 Folate 6.9 ng/mL 12/15/17 05:00 Procalcitonin 4.28 NG/ML (0.19-0.49) H 12/14/17 02:15 TSH 3rd Generation 0.34 mIU/mL (0.46-4.68) L 12/16/17 05:48 Venous Blood Potassium 4.1 mmol/L (3.6-5.2) 12/14/17 08:45 Urine Color Yellow (YELLOW) 12/20/17 02:46 Urine Appearance Sl cloudy (CLEAR) 12/20/17 02:46 Urine pH 7.0 (4.7-8.0) 12/20/17 02:46 Ur Specific [place] 1.010 (1.005-1.035) 12/20/17 02:46 Urine Protein Negative mg/dL (<30 mg/dL) 12/20/17 02:46 Urine Glucose (UA) >=1000 mg/dL (NEGATIVE) 12/20/17 02:46 Urine Ketones Negative mg/dL (NEGATIVE) 12/20/17 02:46 Urine Blood Large (NEGATIVE) H 12/20/17 02:46 Urine Nitrate Negative (NEGATIVE) 12/20/17 02:46 Urine Bilirubin Negative (NEGATIVE) 12/20/17 02:46 Urine Urobilinogen 1.0 E.U./dL (<1 E.U./dL) H 12/20/17 02:46 Ur Leukocyte Esterase Negative Get/uL (NEGATIVE) 12/20/17 02:46 Urine RBC 15 - 20 /hpf (0-2) 12/20/17 02:46 Urine WBC 2 - 5 /hpf (0-6) 12/20/17 02:46 Ur Epithelial Cells 1 - 3 /hpf (0-5) 12/20/17 02:46 Urine Bacteria Few (NEG) 12/20/17 02:46 Influenza Typ A,B (EIA) Negative for flu a/b (NEGATIVE) 12/13/17 20:20 Influenza Type A Ab 1:32 titer (<1:8) H 12/16/17 05:48 Influenza Type B Ab 1:8 titer (<1:8) H 12/16/17 05:48 - Hospital Course Hospital Course: agreed all above , pt is seen and examined at bed side , chart , labs and meds noted , pt came with dka , flu and sepsis , improved , urge to be complaint , f/ u in my office , appointment given
--- NOTE | 2017-12-23 19:20 | PN ---
DATE: ENDOCRINOLOGY FOLLOWUP NOTE LOCATION: Room 562. SUBJECTIVE: This is a 67-year-old female with recent uncontrolled type 2 insulin requiring diabetes now being followed closely for metabolic management. Her glycemic levels are fluctuating, but much improved at this time. LABORATORY DATA: Latest glucose levels have ranged from 190 to 268 mg/dL. Latest chemistry showed a BUN of 15, sodium 138, potassium 4.6, chloride 100, CO2 of 31, glucose 203, creatinine 0.6. PLAN: So, at this time, she is scheduled for discharge. We would recommend the same basal and bolus insulin both regimen as inpatient as ordered. We will continue the Levemir given at 30 units subcu at bedtime daily as ordered. We will also continue the Humalog given as 10 units subcu t.i.d. before meals was given. She will follow with the medical doctor for outpatient diabetic management as noted. Nancy Hall MD
== END 2017-12-23 12:36 | disposition home or self-care (01) | DRG 637 ==
LOC: ED 20:04 → ERH 12-14 00:51 → CCU 12-14 02:37 → 5RNO 12-16 22:33
PROVIDERS: ADMIT Internal Medicine; ATTEND Internal Medicine
DX: E11.10 Type 2 diabetes mellitus with ketoacidosis without coma (principal); A41.9 Sepsis, unspecified organism; N30.90 Cystitis, unspecified without hematuria; E87.5 Hyperkalemia; E83.39 Other disorders of phosphorus metabolism; N13.30 Unspecified hydronephrosis; E87.1 Hypo-osmolality and hyponatremia; I25.10 Atherosclerotic heart disease of native coronary artery without angina pectoris; E78.00 Pure hypercholesterolemia, unspecified; K59.00 Constipation, unspecified; E86.0 Dehydration; I25.5 Ischemic cardiomyopathy; E11.319 Type 2 diabetes mellitus with unspecified diabetic retinopathy without macular edema; B96.1 Klebsiella pneumoniae [K. pneumoniae] as the cause of diseases classified elsewhere; E11.42 Type 2 diabetes mellitus with diabetic polyneuropathy; E78.1 Pure hyperglyceridemia; J40 Bronchitis, not specified as acute or chronic; R14.0 Abdominal distension (gaseous); E05.90 Thyrotoxicosis, unspecified without thyrotoxic crisis or storm; J10.1 Influenza due to other identified influenza virus with other respiratory manifestations; E11.649 Type 2 diabetes mellitus with hypoglycemia without coma; E87.6 Hypokalemia; I10 Essential (primary) hypertension; D64.9 Anemia, unspecified; Z79.4 Long term (current) use of insulin; Z91.19 Patient's noncompliance with other medical treatment and regimen; Z91.14 Patient's other noncompliance with medication regimen; Z88.0 Allergy status to penicillin; Z88.1 Allergy status to other antibiotic agents

== ENCOUNTER 2018-11-06 14:59 | Inpatient (IN) | payer BC, MEDICARE ==
[2018-11-06 15:23] VITALS: BMI 25.7
[2018-11-06] MEDS ORDERED: Clindamycin 600mg/50ml D5W 600 MG/50 ML VIAL IVPB STA (16:04)
--- NOTE | 2018-11-06 16:18 | ED PDOC ---
Arrival/HPI - General Chief Complaint: Lower Extremity Problem/Injury Historian: Patient - History of Present Illness Narrative History of Present Illness (Text): 11/06/18 16:15 68 y o female PMhx DM2, hyperlipidemia, presents to the ED c/o R great toe s welling/pain. States she noticed it 3 days ago, admits to wearing closed-toe shoes/flats, denies any inciting events/trauma prior to onset of symptoms. States she also may have ingrown R toenail as well. Reports clear fluid and bloody discharge from affected toe. States she cleaned area with alcohol and bacitracin which did not help with symptoms. Did not take any OTC pain meds for symptoms. Rates pain 3-10 currently, describes as throbbing, denies any associated radiation of symptoms to rest of R foot. Admits to associated numbness of R great toe, pt states she also has hx of neuropathy. Denies fever, chills, chest pain, shortness of breath, n/v/d/c, abd pain, urinary complaints, or other symptoms. PMhx: DM2, Hyperlipidemia PSurgHx: C/s x 2 Allergies: PCN and vancomycin (anaphylaxis) Home meds: Januvia twice daily (rest of medications/dosages pt unable to recall) Fam hx: DM, HTN, CAD (Dad from [place] at age 61) Soc hx: denies smoking, EtOH, or illicit drug use PMD: Dr. Proctor Time/Duration: Other (3 days) Symptom Onset: Gradual Symptom Course: Worsening Quality: Throbbing Past Medical History - Provider Review Nursing Documentation Reviewed: Yes - Infectious Disease Hx of Infectious Diseases: None - Tetanus Immunization Tetanus Immunization: Unknown - Cardiac Hx Cardiac Disorders: Yes Other/Comment: "weak heart muscle" as per dr owens - Pulmonary Hx Respiratory Disorders: No - Neurological Hx Neurological Disorder: Yes (diabetic neuropathy) - HEENT Hx HEENT Disorder: No Hx Cataracts: Yes (bilat cataract sx) - Renal Hx Renal Disorder: No - Endocrine/Metabolic Hx Endocrine Disorders: Yes Hx Diabetes Mellitus Type 2: Yes (iddm) - Hematological/Oncological Hx Blood Disorders: No - Integumentary Hx Dermatological Disorder: Yes Other/Comment: black spots to both legs - Musculoskeletal/Rheumatological Hx Musculoskeletal Disorders: No Hx Falls: No - Gastrointestinal Hx Gastrointestinal Disorders: Yes Hx Gastroesophageal Reflux: Yes Other/Comment: endoscopy with colon biopsy, hemorrhoids - Genitourinary/Gynecological Hx Genitourinary Disorders: No - Psychiatric Hx Psychophysiologic Disorder: No Hx Substance Use: No - Surgical History Hx Section: Yes - Anesthesia Hx Anesthesia Reactions: No Hx Malignant Hyperthermia: No - Suicidal Assessment Feels Threatened In Home Enviroment: No Family/Social History - Physician Review Nursing Documentation Reviewed: Yes Family/Social History: Diabetes, Hypertension, CAD/ND Smoking Status: Never Smoked Hx Alcohol Use: No Hx Substance Use: No Hx Substance Use Treatment: No Allergies/Home Meds Allergies/Adverse Reactions: Allergies Penicillins Allergy (Verified 12/13/17 20:21) RASH vancomycin Allergy (Verified 12/13/17 20:21) RASH levofloxacin [From Levaquin] Adverse Reaction (Verified 12/13/17 20:21) SHORTNESS OF BREATH Home Medications: Home Meds Medication Instructions Recorded Confirmed MetFORMIN [glucOPHAGE] 1,000 mg PO BID 12/13/17 11/06/18 Review of Systems - Physician Review All systems were reviewed & negative as marked: Yes - Review of Systems Constitutional: absent: Fatigue, Weight Change, Fevers Eyes: absent: Vision Changes Respiratory: absent: SOB, Cough, Wheezing Cardiovascular: absent: Chest Pain, Palpitations, Edema, STEEL Gastrointestinal: absent: Abdominal Pain, Stool Changes, Constipation, Diarrhea, Nausea, Vomiting Musculoskeletal: Joint Swelling Neurological: absent: Headache, Dizziness, Focal Weakness, Speech Changes Endocrine: absent: Diaphoresis Hemo/Lymphatic: absent: Adenopathy Physical Exam Vital Signs Temp Pulse Resp BP Pulse Ox 11/06/18 15:23 98.1 F 93 H 18 147/77 100 Temperature: Afebrile Blood Pressure: Hypertensive Pulse: Regular Respiratory Rate: Normal Appearance: Positive for: Well-Appearing, Non-Toxic, Comfortable Pain Distress: Mild Mental Status: Positive for: Alert and Oriented X 3 - Systems Exam Head: Present: Atraumatic, Normocephalic Pupils: Present: PERRL Extroacular Muscles: Present: EOMI Conjunctiva: Present: Normal Mouth: Present: Moist Mucous Membranes Neck: Present: Normal Range of Motion. No: JVD, Lymphadenopathy Respiratory/Chest: Present: Clear to Auscultation, Good Air Exchange. No: Respiratory Distress, Accessory Muscle Use, Wheezes, Rales, Rhonchi Cardiovascular: Present: Regular Rate and Rhythm, Normal S1, S2. No: Murmurs, Rub, Gallop Abdomen: Present: Normal Bowel Sounds. No: Tenderness, Distention, Rebound, Guarding, Mass/Organomegaly Upper Extremity: Present: Normal Inspection, Normal ROM, NORMAL PULSES, Neurovascularly Intact, Capillary Refill < 2s. No: Cyanosis, Edema, Temperature Abnormalties Lower Extremity: Present: Edema, NORMAL PULSES, Normal ROM (Note decreased ROM in flexion and extension of R great toe), Tenderness, Erythema, Temperature Abnormalties (R great toe feels cold on exam), Neurovascularly Intact, Capillary Refill < 2 s, Other (Ingrown R great toenail noted, dried blood noted around toenail, no discharge appreciated) Neurological: Present: GCS=15, CN II-XII Intact, Speech Normal, Motor Func Gr ossly Intact, Normal Cerebellar Funct Skin: Present: Warm, Dry, Abscess. No: Rashes Psychiatric: Present: Alert, Oriented x 3, Normal Insight, Normal Concentration Medical Decision Making ED Course and Treatment: 11/06/18 16:36 68 y o female PMHx DM2, HLD presents with R great toe swelling/infection. Plan: -Labs -Foot XR -Clindamycin -Podiatry consulted, awaiting callback from podiatry resident Will continue to monitor. 11/06/18 18:01 R foot XR demonstrates soft tissue swelling. Spoke with podiatry resident, states she is coming to evaluate pt at bedside. 11/06/18 19:19 Podiatry resident at bedside with pt. Spoke with PMD Dr. Proctor about case, states she will accept admission. Requested ID consult for Dr. Alonzo. 11/06/18 19:33 Spoke with podiatry resident, who states that she removed the R great toenail and did not notice any pus or discharge on exam after removal. - RAD Interpretation Radiology Orders: 11/06/18 16:08 FOOT RIGHT 3 VIEWS ROUTINE [RAD] Stat - Medication Orders Current Medication Orders: Clindamycin Phosphate (Cleocin) 600 mg in 50 mls @ 50 mls/hr IVPB STAT STA; Protocol Stop: 11/06/18 17:03 Disposition/Present on Arrival - Present on Arrival Any Indicators Present on Arrival: Yes History of DVT/PE: No History of Uncontrolled Diabetes: Yes Urinary Catheter: No History of Decub. Ulcer: No History Surgical Site Infection Following: None - Disposition Have Diagnosis and Disposition been Completed?: Yes Diagnosis: Cellulitis of great toe of right foot Disposition: HOSPITALIZED Disposition Time: 19:21 Patient Plan: Admission Patient Problems: Current Active Problems Problem Status Onset Cellulitis of great toe of right foot Acute Condition: GUARDED Discharge Instructions (ExitCare): Cellulitis (ED) Referrals: Ramya Proctor MD [Primary Care Provider] - Follow up with primary Forms: Stoke (Portuguese)
[2018-11-06 16:48] LABS: BASO # 0.03 K/mm3 (0.0-2.0); BASO % 0.3 % (0.0-3.0); EOS # 0.2 (0.0-0.7); EOS % 2.6 % (1.5-5.0); GRAN # 5.89 (1.4-6.5); HEMOGLOBIN 12.1 g/dL (12.0-16.0); LYMPH # 2.1 (1.2-3.4); LYMPH % 23.5 % (22.0-35.0); MEAN CELL VOLUME 85.6 fl (80.0-105.0); MEAN CORPUSCULAR HEMOGLOBIN 28.5 pg (25.0-35.0); MEAN CORPUSCULAR HGB CONC 33.2 g/dl (31.0-37.0); MEAN PLATELET VOLUME 9.4 fl (7.0-11.0); MONO # 0.6 (0.1-0.6); MONO % 6.6 % (1.0-6.0); RBC 4.25 10^6/uL (3.5-6.1); RED CELL DISTRIBUTION WIDTH 12.6 % (11.5-14.5); WHITE BLOOD COUNT 8.8 10^3/uL (4.5-11.0)
--- NOTE | 2018-11-06 17:47 | RAD ---
Date of service: 11/06/2018 PROCEDURE: Right Foot Radiographs. HISTORY: R toe infection COMPARISON: None. FINDINGS: BONES: No evidence of osteomyelitis. JOINTS: Normal. SOFT TISSUES: Soft tissue swelling 1st digit. OTHER FINDINGS: None. IMPRESSION: Soft tissue swelling without acute articular or osseous abnormality.
[2018-11-06] MEDS ORDERED: Lidocaine 1% Inj (20ml) IJ STA (18:46)
[2018-11-06] MEDS ORDERED: Lidocaine 1% 5ml Abboject ONE (18:55)
[2018-11-06 19:01] LABS: ALB/GLOB RATIO 1.1 (1.1-1.8); ALBUMIN 4.2 g/dL (3.0-4.8); ALT/SGPT 12 U/L (7-56); AST/SGOT 29 U/L (14-36); BLOOD UREA NITROGEN 22 mg/dL (7-21); CALCIUM 9.7 mg/dL (8.4-10.5); GFR NON-AFRICAN AMERICAN > 60
[2018-11-06] MEDS: Aztreonam 1 Gm in NS 100mL 100 ML IVPB SCH (23:06)
[2018-11-06] MEDS: Linezolid 600 mg in D5W 300 ml 600 MG/300 ML BAG IVPB SCH (23:07)
[2018-11-06 23:50] VITALS: RESP 20
[2018-11-07] MEDS: Aztreonam 1 Gm in NS 100mL 100 ML IVPB SCH ×3 (05:50→21:22)
--- NOTE | 2018-11-07 07:25 | CP.PCM.CON ---
History of Present Illness - History of Present Illness History of Present Illness: Podiatry consult note for Dr. James Martinez 68 y/o female patient PMhx DM2, hyperlipidemia, HTN was seen and evaluated in the ED due to complaints of right ingrown toenail. Patient states it has been swollen, and draining for the last 1 week. States she noticed it 3 days ago, admits to wearing closed-toe shoes/flats, denies any inciting events/trauma prior to onset of symptoms. Patient she cleaned area with alcohol and bacitracin which did not help with symptoms. Did not take any OTC pain meds for symptoms. Rates pain 3-4/10 currently, describes as throbbing. Patient denies any other pedal complaints. Patient reports history of numbness. Denies fever, chills, chest pain, shortness of breath, n/v/d/c, abd pain. PMhx: DM2, Hyperlipidemia PSurgHx: C/s x 2 Allergies: PCN and vancomycin (anaphylaxis) Home meds: Januvia twice daily (rest of medications/dosages pt unable to recall) Fam hx: DM, HTN, CAD (Dad from [place] at age 61) Soc hx: denies smoking, EtOH, or illicit drug use Review of Systems - Review of Systems All systems: reviewed and no additional remarkable complaints except Review of Systems: As per HPI Past Patient History - Infectious Disease Hx of Infectious Diseases: None - Tetanus Immunizations Tetanus Immunization: Unknown - Past Social History Smoking Status: Never Smoked - CARDIAC Hx Cardiac Disorders: Yes Other/Comment: "weak heart muscle" as per dr owens - PULMONARY Hx Respiratory Disorders: No - NEUROLOGICAL Hx Neurological Disorder: Yes (diabetic neuropathy) - HEENT Hx HEENT Problems: No Hx Cataracts: Yes (bilat cataract sx) - RENAL Hx Chronic Kidney Disease: No - ENDOCRINE/METABOLIC Hx Endocrine Disorders: Yes Hx Diabetes Mellitus Type 2: Yes (iddm) - HEMATOLOGICAL/ONCOLOGICAL Hx Blood Disorders: No - INTEGUMENTARY Hx Dermatological Problems: Yes Other/Comment: black spots to both legs - MUSCULOSKELETAL/RHEUMATOLOGICAL Hx Musculoskeletal Disorders: No Hx Falls: No - GASTROINTESTINAL Hx Gastrointestinal Disorders: Yes Hx Gastroesophageal Reflux: Yes Other/Comment: endoscopy with colon biopsy, hemorrhoids - GENITOURINARY/GYNECOLOGICAL Hx Genitourinary Disorders: No - PSYCHIATRIC Hx Psychophysiologic Disorder: No Hx Substance Use: No - SURGICAL HISTORY Hx Surgeries: Yes - ANESTHESIA Hx Anesthesia Reactions: No Hx Malignant Hyperthermia: No Meds Allergies/Adverse Reactions: Allergies Allergy/AdvReac Type Severity Reaction Status Date / Time Penicillins Allergy RASH Verified 12/13/17 20:21 vancomycin Allergy RASH Verified 12/13/17 20:21 levofloxacin [From Levaquin] AdvReac SHORTNESS Verified 12/13/17 20:21 OF BREATH - Medications Medications: Current Medications Linezolid (Zyvox 600mg/300ml D5w) 600 mg in 300 mls @ 200 mls/hr IVPB Q12 DANIELA; Protocol Stop: 11/15/18 22:46 Last Admin: 11/06/18 23:07 Dose: 200 mls/hr Aztreonam (Azactam 1 Gm) 100 mls @ 100 mls/hr IVPB Q8 DANIELA; Protocol Stop: 11/15/18 22:49 Last Admin: 11/07/18 05:50 Dose: 100 mls/hr Physical Exam - Constitutional Appears: Well, Non-toxic, No Acute Distress - Head Exam Head Exam: ATRAUMATIC, NORMOCEPHALIC - Extremities Exam Additional comments: Right Lower Extremity Exam VASC: DP and PT 2/4 bilaterally, CFT less than 3 seconds X 10, TG warm to warm at the level of the right hallux, TG otherwise within normal limits, edema noted at the right hallux extending proximally to the level of the 1st MTPJ NEURO: diminished sensation DERM: ingrown, incurvated right hallucal toenail, with positive serous drainage, no open lesions, positive erythema and edema noted, no probe to bone, positive malodor, positive signs of infection to right hallux, nail thickened and dystophic X 10 ORTHO: minimal pain on palpation the right hallux - Neurological Exam Neurological exam: Alert, Oriented x3 - Psychiatric Exam Psychiatric exam: Normal Affect, Normal Mood Results - Vital Signs Recent Vital Signs: Last Vital Signs Temp 98.0 F 11/07/18 06:00 Pulse 85 11/07/18 06:00 Resp 20 11/07/18 06:00 BP 126/79 11/07/18 06:00 Pulse Ox 96 11/07/18 06:00 - Labs Result Diagrams: 11/06/18 16:08 11/06/18 16:08 Labs: Laboratory Results - last 24 hr 11/06/18 11/06/18 11/06/18 16:08 16:08 16:26 WBC 8.8 RBC 4.25 Hgb 12.1 Hct 36.4 MCV 85.6 D MCH 28.5 MCHC 33.2 RDW 12.6 Plt Count 290 MPV 9.4 Gran % 67.0 Lymph % (Auto) 23.5 Garland % (Auto) 6.6 H Eos % (Auto) 2.6 Baso % (Auto) 0.3 Gran # 5.89 Lymph # (Auto) 2.1 Garland # (Auto) 0.6 Eos # (Auto) 0.2 Baso # (Auto) 0.03 Sodium 138 Potassium 4.3 Chloride 101 Carbon Dioxide 31 Anion Gap 10 BUN 22 H Creatinine 0.8 Est GFR ( Amer) > 60 Est GFR (Non-Af Amer) > 60 POC Glucose (mg/dL) 89 Random Glucose 95 Calcium 9.7 Total Bilirubin 0.5 AST 29 ALT 12 Alkaline Phosphatase 71 Total Protein 8.0 Albumin 4.2 Globulin 3.8 Albumin/Globulin Ratio 1.1 11/06/18 21:54 WBC RBC Hgb Hct MCV MCH MCHC RDW Plt Count MPV Gran % Lymph % (Auto) Garland % (Auto) Eos % (Auto) Baso % (Auto) Gran # Lymph # (Auto) Garland # (Auto) Eos # (Auto) Baso # (Auto) Sodium Potassium Chloride Carbon Dioxide Anion Gap BUN Creatinine Est GFR ( Amer) Est GFR (Non-Af Amer) POC Glucose (mg/dL) 151 H Random Glucose Calcium Total Bilirubin AST ALT Alkaline Phosphatase Total Protein Albumin Globulin Albumin/Globulin Ratio Assessment & Plan - Assessment and Plan (Free Text) Assessment: 68 y/o female seen and evaluated for right hallucal infected nail, IV Abx Plan: Patient seen and evaluated at bedside in ED Plan discussed with Dr. Martinez Patient labs, chart and vitals reviewed, WBC 8.8 Right foot X-ray- no signs of soft tissue emphysema, soft tissue swelling noted, no osseous abnormality Patient explained the possible etiology of symptoms, and advised removal of the right hallucal toenail Consent was obtained, signed by patient and witness by nurse No local was administered, the hallucal nail was removed with sterile instruments Patient tolerated the procedure well Wound dressed with betadine and DSD Patient to be admitted for IV Abx Podiatry will continue to follow patient - Date & Time Date: 11/07/18 Time: 07:35
[2018-11-07] MEDS ORDERED: Dextrose 50% SYRINGE Inj (50 ml) IV PRN (08:31)
--- NOTE | 2018-11-07 08:35 | CP.PCM.CON ---
<Rogelio Sosa - Last Filed: 11/07/18 14:47> History of Present Illness - History of Present Illness History of Present Illness: Infectious disease consult note for Dr. Pollard/Dr. Alonzo service - Zach Sosa PGY3 HPI: Patient is a 68yo female with past medical history of DM type 2, HLD, HTN that presented to [facility] [place] [facility] with c/o a right foot pain. She reported having an ingrown toenail with associated swelling, drainage and erythema for the past week. She had been using alcohol and bacitracin at home with minimal relief. Denied any trauma to the area. Otherwise, she denied chest pain, palpitations, SOB, abdominal pain, nausea, vomiting, fever, chills, cough. 12point ROS as per above otherwise negative PMH: as stated above PSH: as stated above allergies: PCN, vancomycin, levaquin Family Hx: Father, from [place] at 61yo; hx of DM/HTN/CAD Social Hx: denies tobacco, alcohol and illicit drug use Past Patient History - Infectious Disease Hx of Infectious Diseases: None - Tetanus Immunizations Tetanus Immunization: Unknown - Past Social History Smoking Status: Never Smoked - CARDIAC Hx Cardiac Disorders: Yes Other/Comment: "weak heart muscle" as per dr owens - PULMONARY Hx Respiratory Disorders: No - NEUROLOGICAL Hx Neurological Disorder: Yes (diabetic neuropathy) - HEENT Hx HEENT Problems: No Hx Cataracts: Yes (bilat cataract sx) - RENAL Hx Chronic Kidney Disease: No - ENDOCRINE/METABOLIC Hx Endocrine Disorders: Yes Hx Diabetes Mellitus Type 2: Yes (iddm) - HEMATOLOGICAL/ONCOLOGICAL Hx Blood Disorders: No - INTEGUMENTARY Hx Dermatological Problems: Yes Other/Comment: black spots to both legs - MUSCULOSKELETAL/RHEUMATOLOGICAL Hx Musculoskeletal Disorders: No Hx Falls: No - GASTROINTESTINAL Hx Gastrointestinal Disorders: Yes Hx Gastroesophageal Reflux: Yes Other/Comment: endoscopy with colon biopsy, hemorrhoids - GENITOURINARY/GYNECOLOGICAL Hx Genitourinary Disorders: No - PSYCHIATRIC Hx Psychophysiologic Disorder: No Hx Substance Use: No - SURGICAL HISTORY Hx Surgeries: Yes - ANESTHESIA Hx Anesthesia Reactions: No Hx Malignant Hyperthermia: No Meds Allergies/Adverse Reactions: Allergies Allergy/AdvReac Type Severity Reaction Status Date / Time Penicillins Allergy RASH Verified 12/13/17 20:21 vancomycin Allergy RASH Verified 12/13/17 20:21 levofloxacin [From Levaquin] AdvReac SHORTNESS Verified 12/13/17 20:21 OF BREATH - Medications Medications: Current Medications Linezolid (Zyvox 600mg/300ml D5w) 600 mg in 300 mls @ 200 mls/hr IVPB Q12 DANIELA; Protocol Stop: 11/15/18 22:46 Last Admin: 11/06/18 23:07 Dose: 200 mls/hr Aztreonam (Azactam 1 Gm) 100 mls @ 100 mls/hr IVPB Q8 DANIELA; Protocol Stop: 11/15/18 22:49 Last Admin: 11/07/18 05:50 Dose: 100 mls/hr Physical Exam - Constitutional Appears: No Acute Distress - Head Exam Head Exam: ATRAUMATIC, NORMAL INSPECTION, NORMOCEPHALIC - Eye Exam Eye Exam: EOMI, PERRL - ENT Exam ENT Exam: Mucous Membranes Moist - Respiratory Exam Respiratory Exam: absent: Rales, Rhonchi, Wheezes - Cardiovascular Exam Cardiovascular Exam: +S1, +S2. absent: Gallop, JVD, Rubs - GI/Abdominal Exam GI & Abdominal Exam: Soft. absent: Distended, Firm, Guarding, Rigid, Tenderness - Neurological Exam Neurological exam: Alert, Oriented x3 - Psychiatric Exam Psychiatric exam: Normal Affect, Normal Mood Results - Vital Signs Recent Vital Signs: Last Vital Signs Temp 98.0 F 11/07/18 06:00 Pulse 85 11/07/18 06:00 Resp 20 11/07/18 06:00 BP 126/79 11/07/18 06:00 Pulse Ox 96 11/07/18 06:00 - Labs Result Diagrams: 11/06/18 16:08 11/06/18 16:08 Labs: Laboratory Results - last 24 hr 11/06/18 11/06/18 11/06/18 16:08 16:08 16:26 WBC 8.8 RBC 4.25 Hgb 12.1 Hct 36.4 MCV 85.6 D MCH 28.5 MCHC 33.2 RDW 12.6 Plt Count 290 MPV 9.4 Gran % 67.0 Lymph % (Auto) 23.5 Sebastian % (Auto) 6.6 H Eos % (Auto) 2.6 Baso % (Auto) 0.3 Gran # 5.89 Lymph # (Auto) 2.1 Sebastian # (Auto) 0.6 Eos # (Auto) 0.2 Baso # (Auto) 0.03 Sodium 138 Potassium 4.3 Chloride 101 Carbon Dioxide 31 Anion Gap 10 BUN 22 H Creatinine 0.8 Est GFR ( Amer) > 60 Est GFR (Non-Af Amer) > 60 POC Glucose (mg/dL) 89 Random Glucose 95 Calcium 9.7 Total Bilirubin 0.5 AST 29 ALT 12 Alkaline Phosphatase 71 Total Protein 8.0 Albumin 4.2 Globulin 3.8 Albumin/Globulin Ratio 1.1 11/06/18 11/07/18 21:54 07:52 WBC RBC Hgb Hct MCV MCH MCHC RDW Plt Count MPV Gran % Lymph % (Auto) Sebastian % (Auto) Eos % (Auto) Baso % (Auto) Gran # Lymph # (Auto) Sebastian # (Auto) Eos # (Auto) Baso # (Auto) Sodium Potassium Chloride Carbon Dioxide Anion Gap BUN Creatinine Est GFR ( Amer) Est GFR (Non-Af Amer) POC Glucose (mg/dL) 151 H 233 H Random Glucose Calcium Total Bilirubin AST ALT Alkaline Phosphatase Total Protein Albumin Globulin Albumin/Globulin Ratio Assessment & Plan - Assessment and Plan (Free Text) Plan: 68yo female with history of HTN, HLD presents with right foot pain. ID consulted for evaluation. right foot 1st digit cellulitis hx of htn hx of hld hx of dm type 2 hx of klebsiella uti -R. Foot Xray revealed soft tissue swelling without acute articular or osseous abnormality; no evidence of osteo on xray -ESR/CRP pending -Cultures including blood/wound are pending -Lower extremity arterial duplex has been ordered to r/o PAD -Continue with azactam/zyvox pending culture/sensitivity however patient may be discharged on Zyvox for 7 days -Patient must follow up with podiatry as an outpatient within 2-3 days of discharge to ensure improvement with abx as well as r/o osteomyelitis with follow up xray -f/u podiatry recommendations -wound care Patient seen and case discussed/reviewed with attending, Dr. Pollard <Mainor Pollard - Last Filed: 11/07/18 17:32> Meds - Medications Medications: Current Medications Acetaminophen (Tylenol 325mg Tab) 650 mg PO Q4H PRN PRN Reason: pain fever Atorvastatin Calcium (Lipitor) 10 mg PO DIN DANIELA Dextrose (Dextrose 50% Inj) 0 ml IV STAT PRN; Protocol PRN Reason: Hypoglycemia Protocol Famotidine (Pepcid) 40 mg PO HS [facility] Gabapentin (Neurontin) 300 mg PO TID [facility]; Protocol Home Med (Home Med) 145 unit PO DAILY DANIELA Home Med (Home Med) 1 unit PO BRKDIN [facility] Hydrochlorothiazide (Microzide) 12.5 mg PO DAILY [facility] Linezolid (Zyvox 600mg/300ml D5w) 600 mg in 300 mls @ 200 mls/hr IVPB Q12 DANIELA; Protocol Stop: 11/15/18 22:46 Last Admin: 11/07/18 09:14 Dose: 200 mls/hr Aztreonam (Azactam 1 Gm) 100 mls @ 100 mls/hr IVPB Q8 [facility]; Protocol Stop: 11/15/18 22:49 Last Admin: 11/07/18 15:18 Dose: 100 mls/hr Dextrose (Dextrose 5% In Water 1000 Ml) 1,000 mls @ 0 mls/hr IV .Q0M PRN; Protocol PRN Reason: Hypoglycemia Protocol Insulin Human Regular (Humulin R Low) 0 units SC ACHS [facility]; Protocol Last Admin: 11/07/18 12:24 Dose: 4 units Loratadine (Claritin) 10 mg PO DAILY [facility] Last Admin: 11/07/18 11:23 Dose: 10 mg Montelukast Sodium (Singulair) 10 mg PO HS [facility] Ramipril (Altace) 2.5 mg PO DAILY [facility] Results - Vital Signs Recent Vital Signs: Last Vital Signs Temp 98.0 F 11/07/18 06:00 Pulse 85 11/07/18 06:00 Resp 20 11/07/18 06:00 BP 126/79 11/07/18 06:00 Pulse Ox 96 11/07/18 06:00 - Labs Result Diagrams: 11/06/18 16:08 11/06/18 16:08 Labs: Laboratory Results - last 24 hr 11/06/1818 11/07/18 16:08 21:54 06:00 ESR 56 H Sodium 138 Potassium 4.3 Chloride 101 Carbon Dioxide 31 Anion Gap 10 BUN 22 H Creatinine 0.8 Est GFR ( Amer) > 60 Est GFR (Non-Af Amer) > 60 POC Glucose (mg/dL) 151 H Random Glucose 95 Calcium 9.7 Total Bilirubin 0.5 AST 29 ALT 12 Alkaline Phosphatase 71 C-Reactive Protein Total Protein 8.0 Albumin 4.2 Globulin 3.8 Albumin/Globulin Ratio 1.1 11/07/18 11/07/18 11/07/18 06:00 07:52 11:26 ESR Sodium Potassium Chloride Carbon Dioxide Anion Gap BUN Creatinine Est GFR ( Amer) Est GFR (Non-Af Amer) POC Glucose (mg/dL) 233 H 328 H Random Glucose Calcium Total Bilirubin AST ALT Alkaline Phosphatase C-Reactive Protein 8.30 Total Protein Albumin Globulin Albumin/Globulin Ratio Assessment & Plan - Assessment and Plan (Free Text) Plan: Infectious diseases Attending Physician Attestation Patient seen and examined, discussed with spanish medical interpreter. I have reviewed the patient's history of present illness, past medical, social, personal and family histories, pertinent physical exam findings, course so far in this hospital admission, pertinent laboratory and imaging results. I agree with the above findings, assessment and plan. In addition, will continue Zyvox and Azactam for right foot cellulitis associated with in-grown toenail on the 1st digit, S/P removal of the nail. May be able to continue on PO Zyvox alone, and patient should follow up with Podiatry as an outpatient. Explained to patient that the follow up is important and failure may lead to losing the toe. Patient understands and acknowledges.
[2018-11-07] MEDS ORDERED: Insulin Lispro (humaLOG) MEDIUM Coverage SC STA (08:57)
[2018-11-07] MEDS: Linezolid 600 mg in D5W 300 ml 600 MG/300 ML BAG IVPB SCH ×2 (09:14→21:23)
--- NOTE | 2018-11-07 09:59 | CP.PCM.PN ---
Subjective - Date & Time of Evaluation Date of Evaluation: 11/07/18 Time of Evaluation: 09:27 - Subjective Subjective: Podiatry progress note for Dr. James Martinez 68 y/o female patient was seen and evaluated in the bedside 1 day S/P toe nail avulsion for infected right ingrown toenail. Patient states that she doesn't have any pain athis right hallux avulsed toe nail. She states that she didn't have any pain as well overnight. Patient states that the swelling and redness went down today. Patient denies any other pedal complaints. Patient states that she still have the numbness as she has diabetic neuropathy. She denies any overnight fever, chills, chest pain, shortness of breath, n/v/d/c. Objective - Vital Signs/Intake and Output Vital Signs (last 24 hours): Temp Pulse Resp BP Pulse Ox 98.0 F 85 20 126/79 96 11/07/18 06:00 11/07/18 06:00 11/07/18 06:00 11/07/18 06:00 11/07/18 06:00 Intake and Output: 11/07/18 11/07/18 06:59 18:59 Intake Total 1960 Balance 1960 - Medications Medications: Current Medications Dextrose (Dextrose 50% Inj) 0 ml IV STAT PRN; Protocol PRN Reason: Hypoglycemia Protocol Linezolid (Zyvox 600mg/300ml D5w) 600 mg in 300 mls @ 200 mls/hr IVPB Q12 DANIELA; Protocol Stop: 11/15/18 22:46 Last Admin: 11/07/18 09:14 Dose: 200 mls/hr Aztreonam (Azactam 1 Gm) 100 mls @ 100 mls/hr IVPB Q8 DANIELA; Protocol Stop: 11/15/18 22:49 Last Admin: 11/07/18 05:50 Dose: 100 mls/hr Dextrose (Dextrose 5% In Water 1000 Ml) 1,000 mls @ 0 mls/hr IV .Q0M PRN; Protocol PRN Reason: Hypoglycemia Protocol Insulin Human Lispro (Humalog Med) 0 units SC ACHS DANIELA; Protocol - Labs Labs: 11/06/18 16:08 11/06/18 16:08 - Constitutional Appears: Well, Non-toxic, No Acute Distress - Head Exam Head Exam: ATRAUMATIC, NORMOCEPHALIC - Extremities Exam Additional comments: Right Lower Extremity Focused Exam VASC: DP and PT 2/4 bilaterally, Cap refill less than 3 seconds to all digits, Temp gradient is warm to cool from proximal to distal, Mild edema noted at the right hallux extending proximally to the level of the 1st MTPJ (less than yesterday) NEURO: diminished gross and protective sensations. DERM: Hallux nail bed looks clean with No drainage, no open lesions, mild erythema and minimal edema noted, no probe to bone, No malodor and no fluctuation. Medial nail fold is covered by dr Rest of the toe nails are thickened and dystophic. MSK: No pain on palpation the right hallux. Muscle power intact 5/5 to all groups - Neurological Exam Neurological Exam: Alert, Awake, Oriented x3 - Psychiatric Exam Psychiatric exam: Normal Affect, Normal Mood Assessment and Plan - Assessment and Plan (Free Text) Assessment: 68 y/o female seen and evaluated 1 day S/P toe nail avulsion for infected right ingrown toenail. Plan: Patient seen and evaluated at bedside Plan discussed with Dr. Martinez Patient labs, chart and vitals reviewed, WBC 8.8 (12/6) Right foot X-ray- no signs of soft tissue emphysema, soft tissue swelling noted, no osseous abnormality Wound cleaned with sterile saline then dressed with betadine and DSD ID onboard; reccommendations appreciated. Patient instructed to ambulate in the surgical shoe all the times. Continue IV Abx as per ID Podiatry will continue to follow patient while in house. Patient will F/U with Dr. James Martinez at his office upon discharge
[2018-11-07] MEDS ORDERED: Insulin Lispro (humaLOG) MEDIUM Coverage SC SCH (11:30)
[2018-11-07] MEDS: Insulin Reg-LOW-Coverage SC SCH ×3 (12:24→23:47)
--- NOTE | 2018-11-07 13:35 | US ---
PROCEDURE: Lower extremity LETICIA exam HISTORY: Peripheral vascular disease with pain and right ischemic toe. Diabetes. PHYSICIAN(S): James Cleveland MD. FINDINGS: The resting LETICIA's are normal: right, 1.22and left, 1.26. The brachial systolic pressures are symmetric. The high thigh pressures and waveforms are relatively normal. The calf PVR waveforms augment normally. No significant gradients are noted across the thighs. The ankle and metatarsal waveforms are relatively normal and symmetric. No significant pressure gradients are noted across the lower legs. IMPRESSION: 1. Relatively normal LETICIA and PVR examination at rest.
[2018-11-07] MEDS: JANUMET PO SCH (17:34)
[2018-11-08] MEDS: Aztreonam 1 Gm in NS 100mL 100 ML IVPB SCH (05:41)
[2018-11-08 06:53] VITALS: BP 134/87; PULSE 100; TEMP 98.1; O2SAT 96
[2018-11-08 08:13] LABS: HEMOGLOBIN 11.3 g/dL (12.0-16.0); MEAN CELL VOLUME 86.1 fl (80.0-105.0); MEAN CORPUSCULAR HEMOGLOBIN 27.6 pg (25.0-35.0); MEAN CORPUSCULAR HGB CONC 32.1 g/dl (31.0-37.0); MEAN PLATELET VOLUME 9.5 fl (7.0-11.0); RBC 4.09 10^6/uL (3.5-6.1); RED CELL DISTRIBUTION WIDTH 12.5 % (11.5-14.5); WHITE BLOOD COUNT 6.7 10^3/uL (4.5-11.0)
[2018-11-08 08:32] LABS: IRON 40 ug/dL (45-180)
[2018-11-08 08:34] LABS: BLOOD UREA NITROGEN 14 mg/dL (7-21); CALCIUM 9.2 mg/dL (8.4-10.5); GFR NON-AFRICAN AMERICAN > 60; HDL CHOLESTEROL 55 mg/dL (29-60)
[2018-11-08 08:38] LABS: LDL CHOLESTEROL 81 mg/dL (0-129)
[2018-11-08 08:42] LABS: % IRON SATURATION 14 % (20-55); TOTAL IRON BINDING CAPACITY 292 ug/dL (265-497)
[2018-11-08] MEDS: Insulin Reg-LOW-Coverage SC SCH ×2 (08:42→12:52)
[2018-11-08] MEDS: JANUMET PO SCH (08:43)
[2018-11-08] MEDS ORDERED: LINZESS 145 MCG PO SCH (10:00)
[2018-11-08] MEDS: Linezolid 600 mg in D5W 300 ml 600 MG/300 ML BAG IVPB SCH (10:11)
--- NOTE | 2018-11-08 11:08 | MRI ---
Date of service: 11/08/2018 PROCEDURE: MRI of the right foot without contrast HISTORY: r/o osteomyelitis COMPARISON: X-ray 11/06/2018 TECHNIQUE: MRI of the right foot was performed in multiple planes using multiple pulse sequences. FINDINGS: There is a minimally displaced fracture of the 1st proximal phalanx. This was difficult to appreciate on the previous plain film. This is best seen on sagittal image 10 series 10. The distal 1st phalanx is unremarkable. The remainder the foot is unremarkable. There is no metatarsal edema. IMPRESSION: Minimally displaced fracture of the 1st proximal phalanx
--- NOTE | 2018-11-08 11:43 | CP.PCM.PN ---
Subjective - Date & Time of Evaluation Date of Evaluation: 11/08/18 Time of Evaluation: 11:40 - Subjective Subjective: Podiatry progress note for Dr. James Martinez 68 y/o female patient was seen and evaluated in the bedside 2 days S/P toe nail avulsion for infected right ingrown toenail. Patient states that she doesn't have any pain at this right hallux avulsed toe nail. Reports that the swelling and pain has decreased and may be going home today. Patient denies any other pedal complaints. Patient states that she still have the numbness as she has di abetic neuropathy. She denies any overnight fever, chills, chest pain, shortness of breath, n/v/d/c. Objective - Vital Signs/Intake and Output Vital Signs (last 24 hours): Temp Pulse Resp BP Pulse Ox 98.1 F 100 H 20 134/87 96 11/08/18 06:00 11/08/18 06:00 11/08/18 06:00 11/08/18 10:12 11/08/18 06:00 - Medications Medications: Current Medications Acetaminophen (Tylenol 325mg Tab) 650 mg PO Q4H PRN PRN Reason: pain fever Atorvastatin Calcium (Lipitor) 10 mg PO DIN [facility] Last Admin: 11/07/18 17:35 Dose: 10 mg Dextrose (Dextrose 50% Inj) 0 ml IV STAT PRN; Protocol PRN Reason: Hypoglycemia Protocol Famotidine (Pepcid) 40 mg PO HS [facility] Last Admin: 11/07/18 21:22 Dose: 40 mg Gabapentin (Neurontin) 300 mg PO TID DANIELA; Protocol Last Admin: 11/08/18 10:12 Dose: 300 mg Home Med (Home Med) 145 unit PO DAILY [facility] Last Admin: 11/08/18 10:21 Dose: Not Given Home Med (Home Med) 1 unit PO BRKDIN [facility] Last Admin: 11/08/18 08:43 Dose: 1 unit Hydrochlorothiazide (Microzide) 12.5 mg PO DAILY [facility] Last Admin: 11/08/18 10:12 Dose: 12.5 mg Linezolid (Zyvox 600mg/300ml D5w) 600 mg in 300 mls @ 200 mls/hr IVPB Q12 DANIELA; Protocol Stop: 11/15/18 22:46 Last Admin: 11/08/18 10:11 Dose: 200 mls/hr Aztreonam (Azactam 1 Gm) 100 mls @ 100 mls/hr IVPB Q8 DANIELA; Protocol Stop: 11/15/18 22:49 Last Admin: 11/08/18 05:41 Dose: 100 mls/hr Dextrose (Dextrose 5% In Water 1000 Ml) 1,000 mls @ 0 mls/hr IV .Q0M PRN; Protocol PRN Reason: Hypoglycemia Protocol Insulin Human Regular (Humulin R Low) 0 units SC ACHS [facility]; Protocol Last Admin: 11/08/18 08:42 Dose: 2 units Loratadine (Claritin) 10 mg PO DAILY [facility] Last Admin: 11/08/18 10:12 Dose: 10 mg Montelukast Sodium (Singulair) 10 mg PO HS [facility] Last Admin: 11/07/18 21:22 Dose: 10 mg Ramipril (Altace) 2.5 mg PO DAILY [facility] Last Admin: 11/08/18 10:12 Dose: 2.5 mg - Labs Labs: 11/08/18 08:01 11/08/18 08:01 - Constitutional Appears: Well, Non-toxic, No Acute Distress - Extremities Exam Additional comments: Right Lower Extremity Focused Exam VASC: DP and PT 2/4 bilaterally, Cap refill less than 3 seconds to all digits, Temp gradient is warm to cool from proximal to distal, Mild edema noted at the right hallux extending proximally to the level of the 1st MTPJ (less than yesterday) NEURO: diminished gross and protective sensations. DERM: Hallux nail bed looks clean with No drainage, no open lesions, mild efrain thema and minimal edema noted, no probe to bone, No malodor and no fluctuation. Rest of the toe nails are thickened and dystophic. MSK: No pain on palpation the right hallux. Muscle power intact 5/5 to all groups - Neurological Exam Neurological Exam: Alert, Awake, Oriented x3 - Psychiatric Exam Psychiatric exam: Normal Affect, Normal Mood Assessment and Plan - Assessment and Plan (Free Text) Assessment: 68 y/o female seen and evaluated 2 days S/P toe nail avulsion for infected right ingrown toenail. Plan: Patient seen and evaluated at bedside Plan discussed with Dr. Martinez Patient labs, chart and vitals reviewed, WBC 6.7 (11/06) Right foot X-ray- no signs of soft tissue emphysema, soft tissue swelling noted, no osseous abnormality Wound cleaned with sterile saline then dressed with betadine and DSD ID onboard; reccommendations appreciated. Patient instructed to ambulate in the surgical shoe all the times. Continue IV Abx as per ID Podiatry will continue to follow patient while in house. Patient will F/U with Dr. James Martinez at his office upon discharge
--- NOTE | 2018-11-10 07:49 | PN ---
DATE: 11/08/2018 SUBJECTIVE: The patient is in bed, in no acute distress, nontoxic. No fevers. She is requesting about being discharged. PHYSICAL EXAMINATION: VITAL SIGNS: Temperature is 98, blood pressure is 130/70, respiratory rate is 20. HEENT: Unremarkable. NECK: Supple. LUNGS: Decreased breath sounds. HEART: Normal S1 and S2. ABDOMEN: Soft. EXTREMITIES: Examination of foot is noted. LABORATORY DATA: Chemistries reviewed. Creatinine is noted to be at 0.8, white count of 6.7 and sed rate is 56. The patient does have a C-reactive protein of 8.3. Microbiology reveals the blood cultures are negative. The patient had an MRI which shows no evidence of osteomyelitis. The patient has a displaced fracture of the first metatarsal phalanx. ASSESSMENT AND PLAN: A 68-year-old female with a past medical history of diabetes mellitus, hyperlipidemia and hypertension, presenting with a right foot pain with an ingrown toenail, associated with swelling, drainage and erythema, who is ALLERGIC TO PENICILLIN, VANCOMYCIN AND LEVAQUIN. MRI is negative for osteomyelitis; however, it does show a fracture. We will discontinue the antibiotics with the aztreonam and Zyvox and change to p.o. doxycycline. The patient wants to be discharged today, will follow up with PMD and Podiatry, if Podiatry states that the discharge is approved by them. Case was discussed with nursing staff and will follow with you. Rogelio Alonzo MD
--- NOTE | 2018-11-10 10:11 | HP ---
DATE OF EXAM: 11/07/2018 The patient was seen and examined at the bedside on 11/07/2018. CHIEF COMPLAINT: Lower extremity pain. HISTORY OF PRESENT ILLNESS: Ms. Harmony Sequeira 68 years old, my private patient with past medical history of diabetes mellitus type 2, insulin requiring; hypercholesterolemia; peripheral neuropathy came complaining of right great toe swollen and painful; she noticed this 3 days ago, admitted to wearing a closed toe shoes/flaps; denies any inciting event or trauma prior to onset of symptoms. States that she also may have ingrowing right toenail as well; reports clear liquid and bloody discharge from the affected toe; states that she cleaned the area with alcohol and bacitracin ointment which did not help the symptoms; did not take any [id number] pain medication. Pain was like 3-03/11. No fever. No chills. No hematuria, hematochezia. No radiation of the pain. Admits to associated numbness of the right great toe and the patient states that she also has history of neuropathy. No fever, chills. No nausea or vomiting. No hematuria or hematochezia. No headache. No dizziness. PAST MEDICAL HISTORY: Diabetes mellitus type 2, insulin requiring; hypercholesterolemia; peripheral neuropathy, history of section x2. ALLERGIES: THE PATIENT IS ALLERGIC WITH PENICILLIN GIVING ANAPHYLAXIS. HOME MEDICATIONS: Januvia, metformin. FAMILY HISTORY: Diabetes, hypertension, coronary artery disease. REVIEW OF SYSTEMS: The patient was seen and examined at bedside in her room, looking comfortable. No fever. No chills. No hematuria or hematochezia. No swelling of the leg. No chest pain. No palpitation. No headache. No dizziness. PHYSICAL EXAMINATION: VITAL SIGNS: Temperature is 98.1, pulse 92, respiratory , blood pressure 147/77, pulse oximetry 100%. HEENT: Head normocephalic, atraumatic. Eyes: PERRLA. Extraocular muscles intact. Conjunctivae clear. Nose patent. NECK: Supple. No carotid bruits. No JVD or thyromegaly. CHEST: Bilaterally symmetrical. HEART: S1 and S2 positive. LUNGS: Clear to auscultation. ABDOMEN: Soft. Bowel sounds positive. No organomegaly. EXTREMITIES: No edema. No cyanosis. NEUROLOGIC: The patient is awake and alert. Moving all 4 extremities. No focal deficits. ASSESSMENT AND PLAN: Ms. Harmony Sequeira 68 years old lady with high erythrocyte sedimentation rate; increased BUN; uncontrolled diabetes mellitus type 2, insulin requiring; Doppler of the extremity done. According to Dr. James Cleveland normal LETICIA and PVR examination at rest; seen by Dr. ; patient has history of hypercholesterolemia; right foot pain; has right ingrowing toenail. LABORATORY DATA: White blood cells 8.8, hemoglobin 12.1, hematocrit 36.4, platelets 290. Sodium 130, potassium 4.3, BUN 22, creatinine 0.8, glucose 95. We will continue Zosyn and Azactam for the right foot failure associated with ingrowing toenails on the first digit removal of the nail, which may be able to; continue the p.o. Zosyn alone. The patient should follow up with the Podiatry as outpatient and explained to the patient that followup is important and failure of that may lead to losing of the toes. The patient understands and acknowledged that. Discussion done with the patient, length of time. All questions answered. We will follow up Ramya Proctor MD
== END 2018-11-08 15:59 | disposition home or self-care (01) | DRG 603 ==
LOC: ED 14:59 → ERH 19:21 → 3RSO 22:24
PROVIDERS: ADMIT Internal Medicine; ATTEND Internal Medicine
PROC: 0HBRXZZ Excision of Toe Nail, External Approach (ICD-10-PCS; principal; 2018-11-07)
DX: L03.031 Cellulitis of right toe (principal); L60.0 Ingrowing nail; E11.40 Type 2 diabetes mellitus with diabetic neuropathy, unspecified; E11.65 Type 2 diabetes mellitus with hyperglycemia; E78.00 Pure hypercholesterolemia, unspecified; E78.5 Hyperlipidemia, unspecified; I11.0 Hypertensive heart disease with heart failure; I50.9 Heart failure, unspecified; K21.9 Gastro-esophageal reflux disease without esophagitis; Z79.4 Long term (current) use of insulin; Z82.49 Family history of ischemic heart disease and other diseases of the circulatory system; Z83.3 Family history of diabetes mellitus; Z88.0 Allergy status to penicillin; Z88.1 Allergy status to other antibiotic agents; Z98.42 Cataract extraction status, left eye; Z98.41 Cataract extraction status, right eye

== ENCOUNTER 2018-11-13 18:06 | Inpatient (IN) | payer BC, MEDICARE ==
[2018-11-13 18:41] VITALS: BMI 29.2
--- NOTE | 2018-11-13 18:58 | ED PDOC ---
Arrival/HPI - General Chief Complaint: Medical Clearance Historian: Patient - History of Present Illness Narrative History of Present Illness (Text): 11/13/18 18:52 68 y/o male, pmh including htn/hld/dm, allergic to penicillin/vancomycin/levaquin, send in by Dr. Dickinson, dance master, for admission for the rt. foot 1st digit toe which failed the oral outpatient treatment. Pt. was seen here about 1 week ago, discharge home with oral doxycycline for rt. foot 1st digit great toe infection after admitted with IV aztreonam and zyvox, discharge home, seen by the dance master today Dr. Dickinson which noted to be cellulitis and told to come to the ER for admission, admits fever at home, no chest pain or shortness of breath, no numbness or tingling, no other medical or psychological complaints. Past Medical History - Provider Review Nursing Documentation Reviewed: Yes - Infectious Disease Hx of Infectious Diseases: None - Tetanus Immunization Tetanus Immunization: Unknown - Cardiac Hx Cardiac Disorders: Yes Other/Comment: "weak heart muscle" as per dr owens - Pulmonary Hx Respiratory Disorders: No - Neurological Hx Neurological Disorder: Yes (diabetic neuropathy) - HEENT Hx HEENT Disorder: Yes Hx Cataracts: Yes (bilat cataract sx) - Renal Hx Renal Disorder: No - Endocrine/Metabolic Hx Endocrine Disorders: Yes Hx Diabetes Mellitus Type 2: Yes (iddm) - Hematological/Oncological Hx Blood Disorders: No - Integumentary Hx Dermatological Disorder: Yes Other/Comment: black spots to both legs - Musculoskeletal/Rheumatological Hx Musculoskeletal Disorders: No - Gastrointestinal Hx Gastrointestinal Disorders: Yes Hx Gastroesophageal Reflux: Yes Other/Comment: endoscopy with colon biopsy, hemorrhoids - Genitourinary/Gynecological Hx Genitourinary Disorders: No - Psychiatric Hx Psychophysiologic Disorder: No Hx Substance Use: No - Surgical History Hx Section: Yes - Anesthesia Hx Anesthesia: No - Suicidal Assessment Feels Threatened In Home Enviroment: No Family/Social History - Physician Review Nursing Documentation Reviewed: Yes Family/Social History: Unknown Family HX Smoking Status: Never Smoked Hx Alcohol Use: No Hx Substance Use: No Hx Substance Use Treatment: No Allergies/Home Meds Allergies/Adverse Reactions: Allergies Penicillins Allergy (Verified 11/13/18 18:40) RASH vancomycin Allergy (Verified 11/13/18 18:40) RASH levofloxacin [From Levaquin] Adverse Reaction (Verified 11/13/18 18:40) SHORTNESS OF BREATH Home Medications: Home Meds Medication Instructions Recorded Confirmed MetFORMIN [glucoPHAGE] 1,000 mg PO BID 12/13/17 11/13/18 Atorvastatin [Lipitor] 10 mg PO DIN 11/07/18 11/13/18 Gabapentin [Neurontin] 300 mg PO TID 11/07/18 11/13/18 Hydrochlorothiazide [Microzide] 12.5 mg PO DAILY 11/07/18 11/13/18 Insulin Glargine, Recombina 50 units DAILY 11/07/18 11/13/18 [Lantus] Insulin Lispro [humALOG] 15 unit TID 11/07/18 11/13/18 Insulin Lispro [humALOG] 15 units DAILY 11/07/18 11/13/18 Linaclotide [Linzess] 145 mcg PO DAILY 11/07/18 11/13/18 Montelukast [Singulair] 10 mg PO DAILY 11/07/18 11/13/18 Ramipril [Altace] 2.5 mg PO DAILY 11/07/18 11/13/18 Sitagliptin Phos/Metformin HCl 1 each PO BID 11/14/18 11/14/18 [Janumet 50-1,000 mg Tablet] Review of Systems - Review of Systems Constitutional: Fevers. absent: Fatigue Eyes: absent: Vision Changes ENT: absent: Hearing Changes Respiratory: absent: SOB, Cough Cardiovascular: absent: Chest Pain Gastrointestinal: absent: Abdominal Pain, Nausea, Vomiting Musculoskeletal: absent: Arthralgias Skin: Rash, Cellulitis. absent: Pruritis, Skin Lesions, Laceration, Abscess, Ulcer Neurological: absent: Headache, Dizziness Psychiatric: absent: Anxiety, Depression, Suicidal Ideation Physical Exam Vital Signs Reviewed: Yes Vital Signs Temp Pulse Resp BP Pulse Ox 11/13/18 18:40 98.2 F 99 H 18 105/64 96 Temperature: Afebrile Blood Pressure: Normal Pulse: Regular Respiratory Rate: Normal Appearance: Positive for: Well-Appearing, Non-Toxic, Comfortable Pain Distress: Moderate Mental Status: Positive for: Alert and Oriented X 3 - Systems Exam Head: Present: Atraumatic, Normocephalic Pupils: Present: PERRL Extroacular Muscles: Present: EOMI Conjunctiva: Present: Normal Mouth: Present: Moist Mucous Membranes Neck: Present: Normal Range of Motion Respiratory/Chest: Present: Clear to Auscultation, Good Air Exchange. No: Respiratory Distress, Accessory Muscle Use Cardiovascular: Present: Regular Rate and Rhythm, Normal S1, S2. No: Murmurs Abdomen: No: Tenderness, Distention, Peritoneal Signs Back: Present: Normal Inspection Upper Extremity: Present: Normal Inspection. No: Cyanosis, Edema Lower Extremity: Present: Normal Inspection, Other (Rt. foot: 1st digit toe noted to have cellulitis of the great toe and 1st Metatarsal joint with erythematous, no streaking or ulcers, FROM without limitation, sensation intact, motor 5/5, +DPPT Pulses, capillary refill< 2 seconds, neurovascular intact. ). No: Edema Neurological: Present: GCS=15, CN II-XII Intact, Speech Normal Skin: Present: Warm, Dry, Normal Color. No: Rashes Psychiatric: Present: Alert, Oriented x 3, Normal Insight, Normal Concentration Medical Decision Making ED Course and Treatment: 11/13/18 19:09 -Labs and cultures -xray -IV azotram/zyvox/morphine -observe and reassess 11/13/18 21:40 -Labs show no acute findings except BUN 25 (mildly dehydrated, IVF ordered) -ESR 45, elevated, likely inflammatory response -CRP ordered and pending result -Procalcitonin ordered and pending result -Lactic acid within normal limit. -UA show no UTI -Rt. foot xray show +1st digit toe fracture, monster tapping applied. -Chest xray ER wet read, no active disease -Pt. tried oral antibiotic, no improvement, needs admission for IV antibiotic as per dance master. -I spoke to the pmd, Dr. Proctor, discussed about the case/request Dr. Dickinson and Dr. Alonzo on routine consult which I ordered. Dr. Proctor will follow up on pending labs and consults. She agreed to admit to her service. - RAD Interpretation Blood Collector: Radiologist - PA / LUNCHRO[employer] SUPERVISOR / Resident Statement /DO has reviewed & agrees with the documentation as recorded. Disposition/Present on Arrival - Present on Arrival Any Indicators Present on Arrival: No History of DVT/PE: No History of Uncontrolled Diabetes: No Urinary Catheter: No History of Decub. Ulcer: No History Surgical Site Infection Following: None - Disposition Have Diagnosis and Disposition been Completed?: Yes Diagnosis: Cellulitis of foot, Failure of outpatient treatment, Dehydration Disposition: HOSPITALIZED Disposition Time: 21:42 Patient Plan: Observation Patient Problems: Current Active Problems Problem Status Onset Cellulitis of foot Acute Failure of outpatient treatment Acute Dehydration Acute Condition: STABLE
[2018-11-13] MEDS ORDERED: Aztreonam 2 Gm in NS 100mL 100 ML IVPB STA (19:01)
[2018-11-13] MEDS ORDERED: Morphine 4 mg/ml ISec IVP STA (19:03)
[2018-11-13] MEDS: Sodium Chloride 0.9% 1,000 ML IV SCH (19:31)
[2018-11-13 19:40] LABS: VENOUS BLOOD GAS BASE EXCESS 0.3 mmol/L (0.0-2.0); VENOUS BLOOD GAS PO2 39 mm/Hg (30-55); VENOUS BLOOD PH 7.32 (7.32-7.43)
[2018-11-13 19:45] LABS: BASO # 0.03 K/mm3 (0.0-2.0); BASO % 0.3 % (0.0-3.0); EOS # 0.2 (0.0-0.7); EOS % 2.6 % (1.5-5.0); GRAN # 5.79 (1.4-6.5); HEMOGLOBIN 12.1 g/dL (12.0-16.0); LYMPH # 2.3 (1.2-3.4); MEAN CELL VOLUME 85.8 fl (80.0-105.0); MEAN CORPUSCULAR HEMOGLOBIN 28.5 pg (25.0-35.0); MEAN CORPUSCULAR HGB CONC 33.2 g/dl (31.0-37.0); MEAN PLATELET VOLUME 9.4 fl (7.0-11.0); MONO # 0.5 (0.1-0.6); MONO % 6.1 % (1.0-6.0); RBC 4.24 10^6/uL (3.5-6.1); RED CELL DISTRIBUTION WIDTH 13.1 % (11.5-14.5); WHITE BLOOD COUNT 8.9 10^3/uL (4.5-11.0)
[2018-11-13 21:20] LABS: ALB/GLOB RATIO 1.1 (1.1-1.8); ALT/SGPT 9 U/L (7-56); AST/SGOT 30 U/L (14-36); BLOOD UREA NITROGEN 25 mg/dL (7-21); GFR NON-AFRICAN AMERICAN > 60; URIC ACID 5.9 mg/dL (2.5-6.2)
[2018-11-13] MEDS ORDERED: Linezolid 600 mg in D5W 300 ml 600 MG/300 ML BAG IVPB SCH (22:00)
[2018-11-13 22:32] LABS: URINE APPEARANCE CLEAR (CLEAR); URINE BILIRUBIN NEGATIVE (NEGATIVE); URINE BLOOD NEGATIVE (NEGATIVE); URINE COLOR LIGHT YELLOW (YELLOW); URINE GLUCOSE (UA) NEGATIVE (NEGATIVE); URINE LEUKOCYTE ESTERASE NEGATIVE Leu/uL (NEGATIVE); URINE PROTEIN NEGATIVE mg/dL (<30 mg/dL); URINE UROBILINOGEN 0.2 E.U./dL (<1 E.U./dL)
[2018-11-14] MEDS ORDERED: Dextrose 50% SYRINGE Inj (50 ml) IV PRN ×2 (00:12→20:03)
[2018-11-14] MEDS: Sodium Chloride 0.9% 1,000 ML IV SCH (05:05)
[2018-11-14] MEDS: Meropenem IV 1 gm in NS 1 GM/50 ML BAG IVPB SCH ×3 (05:14→21:00)
[2018-11-14] MEDS: Insulin Lispro (humaLOG) MEDIUM Coverage SC SCH ×4 (07:34→22:00)
--- NOTE | 2018-11-14 09:31 | RAD ---
PROCEDURE: Radiographs of the right great toe. TECHNIQUE:: AP radiograph of the right foot, with oblique and lateral view of the right great toe. COMPARISON: None. FINDINGS: BONES: Fracture proximal phalanx 1st digit. JOINTS: Normal. SOFT TISSUES: Soft tissue swelling attests to the acuity of the fracture. OTHER FINDINGS: None. IMPRESSION: Acute fracture proximal phalanx 1st digit
--- NOTE | 2018-11-14 09:34 | RAD ---
Date of service: 11/13/2018 HISTORY: medical clearance COMPARISON: 12/13/2017. FINDINGS: LUNGS: No active pulmonary disease. PLEURA: No significant pleural effusion identified, no pneumothorax apparent. CARDIOVASCULAR: Atherosclerotic calcifications identified primarily aortic arch. Normal. OSSEOUS STRUCTURES: No significant abnormalities. VISUALIZED UPPER ABDOMEN: Normal. OTHER FINDINGS: None. IMPRESSION: No active disease. No significant interval change compared to the prior examination(s). Concordant results with the preliminary interpretation rendered by the emergency department physician procedure.
[2018-11-14] MEDS: Linezolid 600 mg in D5W 300 ml 600 MG/300 ML BAG IVPB SCH ×3 (10:27→21:00)
--- NOTE | 2018-11-14 11:02 | CP.PCM.CON ---
<Anusha Alaser - Last Filed: 11/14/18 13:02> History of Present Illness - History of Present Illness History of Present Illness: Podiatry consult note for Dr. Castillo/Dr. Ramos 68 y/o female patient PMH DM2, hyperlipidemia, HTN was sseen and evaluated in the bedside 8 days S/P toe nail avulsion for infected right ingrown toenail. acute fracture proximal phalanx of the right hallux. Patient statesshe had infection n her right big toe nail 8 days ago where she came to the ED at [facility]. I&D were done for her with nail avulsion, She states that she was admitted to the hospital for IV abx then discharged, Patient states that she is still having pain and swelling in her right big toe, describes the pain as throbbing pain. She states that she went to Dr. Dickinson office who sent her to the hospital to received IV abx as she has infection in her right big toe. Patient denies any other pedal complaints. Patient reports history of numbness. Denies fever, chills, chest pain, shortness of breath, n/v/d/c, abdonminal pain. PMH: DM2, Hyperlipidemia PSH: C/section twice. Allergies: Penicillins, vancomycin (anaphylaxis), Levofloxacin Social Hx: denies smoking, EtOH, or illicit drug use Review of Systems - Review of Systems Review of Systems: As per HPI Past Patient History - Infectious Disease Hx of Infectious Diseases: None - Tetanus Immunizations Tetanus Immunization: Unknown - Past Social History Smoking Status: Never Smoked - CARDIAC Hx Hypercholesterolemia: Yes - PULMONARY Hx Respiratory Disorders: No - NEUROLOGICAL Hx Neurological Disorder: Yes (diabetic neuropathy) - HEENT Hx HEENT Problems: Yes Hx Cataracts: Yes (bilat cataract sx) - RENAL Hx Chronic Kidney Disease: No - ENDOCRINE/METABOLIC Hx Endocrine Disorders: Yes Hx Diabetes Mellitus Type 2: Yes (iddm) - HEMATOLOGICAL/ONCOLOGICAL Hx Blood Disorders: No - INTEGUMENTARY Hx Dermatological Problems: Yes Other/Comment: black spots to both legs - MUSCULOSKELETAL/RHEUMATOLOGICAL Hx Falls: No - GASTROINTESTINAL Hx Gastrointestinal Disorders: Yes Hx Gastroesophageal Reflux: Yes Other/Comment: endoscopy with colon biopsy, hemorrhoids - GENITOURINARY/GYNECOLOGICAL Hx Genitourinary Disorders: No - PSYCHIATRIC Hx Psychophysiologic Disorder: No Hx Substance Use: No - SURGICAL HISTORY Hx Section: Yes - ANESTHESIA Hx Anesthesia: No Meds Allergies/Adverse Reactions: Allergies Allergy/AdvReac Type Severity Reaction Status Date / Time Penicillins Allergy RASH Verified 11/13/18 18:40 vancomycin Allergy RASH Verified 11/13/18 18:40 levofloxacin [From Levaquin] AdvReac SHORTNESS Verified 11/13/18 18:40 OF BREATH - Medications Medications: Current Medications Dextrose (Dextrose 50% Inj) 0 ml IV STAT PRN; Protocol PRN Reason: Hypoglycemia Protocol Sodium Chloride (Sodium Chloride 0.9%) 1,000 mls @ 100 mls/hr IV .Q10H DANIELA Last Admin: 11/14/18 05:05 Dose: 100 mls/hr Meropenem (Merrem Iv 1 Gm Premix) 1 gm in 50 mls @ 12.5 mls/hr IVPB Q8 DANIELA; Protocol Stop: 11/23/18 06:01 Last Admin: 11/14/18 05:14 Dose: 12.5 mls/hr Linezolid (Zyvox 600mg/300ml D5w) 600 mg in 300 mls @ 200 mls/hr IVPB Q12 DANIELA; Protocol Stop: 11/23/18 10:01 Last Admin: 11/14/18 10:27 Dose: 200 mls/hr Dextrose (Dextrose 5% In Water 1000 Ml) 1,000 mls @ 0 mls/hr IV .Q0M PRN; Protocol PRN Reason: Hypoglycemia Protocol Insulin Human Lispro (Humalog Med) 0 units SC ACHS DANIELA; Protocol Last Admin: 11/14/18 07:34 Dose: Not Given Physical Exam - Constitutional Appears: Well, Non-toxic, No Acute Distress - Head Exam Head Exam: ATRAUMATIC, NORMOCEPHALIC - Extremities Exam Additional comments: Right Lower Extremity Focused Exam VASC: DP and PT 2/4 bilaterally, Cap refill less than 3 seconds to all digits, Temp gradient is warm to cool from proximal to distal, Mild edema noted at the right hallux extending proximally to the level of the 1st MTPJ NEURO: diminished gross and protective sensations. DERM: Hallux nail bed looks clean with No drainage, no open lesions, mild erythema and minimal edema noted, no probe to bone, No malodor and no fluctuation. Medial nail fold is covered by dr Rest of the toe nails are thickened and dystophic. MSK: No pain on palpation the right hallux. Muscle power intact 5/5 to all groups - Neurological Exam Neurological exam: Alert, Oriented x3 - Psychiatric Exam Psychiatric exam: Normal Affect, Normal Mood Results - Vital Signs Recent Vital Signs: Last Vital Signs Temp 98.6 F 11/14/18 06:00 Pulse 97 H 11/14/18 06:00 Resp 20 11/14/18 06:00 BP 100/54 L 11/14/18 06:00 Pulse Ox 93 L 11/14/18 06:00 - Labs Result Diagrams: 11/13/18 19:25 11/13/18 19:25 Labs: Laboratory Results - last 24 hr 11/13/18 11/13/18 11/13/18 19:25 19:25 19:25 WBC 8.9 D RBC 4.24 Hgb 12.1 Hct 36.4 MCV 85.8 MCH 28.5 MCHC 33.2 RDW 13.1 Plt Count 289 MPV 9.4 Gran % 65.0 Lymph % (Auto) 26.0 [place] % (Auto) 6.1 H Eos % (Auto) 2.6 Baso % (Auto) 0.3 Gran # 5.79 Lymph # (Auto) 2.3 [place] # (Auto) 0.5 Eos # (Auto) 0.2 Baso # (Auto) 0.03 ESR 45 H pO2 39 VBG pH 7.32 VBG pCO2 53.0 VBG HCO3 27.3 VBG Total CO2 28.9 H VBG O2 Sat (Calc) 73.7 H VBG Base Excess 0.3 VBG Potassium 5.0 Sodium 136 138.0 Chloride 104 103.0 Glucose 173 H Lactate 1.4 FiO2 21.0 Potassium 4.7 Carbon Dioxide 21 Anion Gap 16 BUN 25 H Creatinine 0.9 Est GFR ( Amer) > 60 Est GFR (Non-Af Amer) > 60 POC Glucose (mg/dL) Random Glucose 180 H Uric Acid 5.9 Calcium 10.0 Magnesium 1.7 Total Bilirubin 0.5 AST 30 ALT 9 Alkaline Phosphatase 86 Total Protein 7.7 Albumin 4.0 Globulin 3.7 Albumin/Globulin Ratio 1.1 Venous Blood Potassium 5.0 Urine Color Urine Appearance Urine pH Ur Specific [place] Urine Protein Urine Glucose (UA) Urine Ketones Urine Blood Urine Nitrate Urine Bilirubin Urine Urobilinogen Ur Leukocyte Esterase 11/13/18 11/14/18 11/14/18 22:27 00:18 06:46 WBC RBC Hgb Hct MCV MCH MCHC RDW Plt Count MPV Gran % Lymph % (Auto) [place] % (Auto) Eos % (Auto) Baso % (Auto) Gran # Lymph # (Auto) [place] # (Auto) Eos # (Auto) Baso # (Auto) ESR pO2 VBG pH VBG pCO2 VBG HCO3 VBG Total CO2 VBG O2 Sat (Calc) VBG Base Excess VBG Potassium Sodium Chloride Glucose Lactate FiO2 Potassium Carbon Dioxide Anion Gap BUN Creatinine Est GFR ( Amer) Est GFR (Non-Af Amer) POC Glucose (mg/dL) 200 H 106 Random Glucose Uric Acid Calcium Magnesium Total Bilirubin AST ALT Alkaline Phosphatase Total Protein Albumin Globulin Albumin/Globulin Ratio Venous Blood Potassium Urine Color Light yellow Urine Appearance Clear Urine pH 6.0 Ur Specific [place] <= 1.005 Urine Protein Negative Urine Glucose (UA) Negative Urine Ketones Negative Urine Blood Negative Urine Nitrate Negative Urine Bilirubin Negative Urine Urobilinogen 0.2 Ur Leukocyte Esterase Negative Assessment & Plan - Assessment and Plan (Free Text) Assessment: 68 y/o female patient was seen and evaluated in the bedside 8 days S/P toe nail avulsion for infected right ingrown toenail. Displaced fracture proximal phalanx of the right hallux. Plan: Patient seen and evaluated at bedside with dr. Ramos Plan discussed with Dr. Ramos Patient labs, chart and vitals reviewed, WBC 8.9 Right foot X-ray- minimally displaced fracture proximal phalanx big toe. Right foot MRI- minimally displaced fracture proximal phalanx big toe. no signs of OM Wound cleaned with sterile saline then dressed with betadine and DSD ID on board; recommendations appreciated. Ordered Wedge shoe Patient instructed to ambulate in the surgical wedge shoe all the times. Continue IV Abx as per ID Podiatry will continue to follow patient while in house. - Date & Time Date: 11/14/18 Time: 10:57 <Vinay Ramos - Last Filed: 11/15/18 12:40> Meds - Medications Medications: Current Medications Acetaminophen (Tylenol 325mg Tab) 650 mg PO Q4H PRN PRN Reason: pain fever Atorvastatin Calcium (Lipitor) 10 mg PO DIN DANIELA Dextrose (Dextrose 50% Inj) 0 ml IV STAT PRN; Protocol PRN Reason: Hypoglycemia Protocol Dextrose (Dextrose 50% Inj) 0 ml IV STAT PRN; Protocol PRN Reason: Hypoglycemia Protocol Gabapentin (Neurontin) 300 mg PO TID [facility]; Protocol Last Admin: 11/15/18 09:20 Dose: 300 mg Home Med (Home Med) 1 unit PO DAILY [facility] Last Admin: 11/15/18 09:21 Dose: 1 unit Home Med (Home Med) 1 unit PO BID [facility] Last Admin: 11/15/18 09:20 Dose: 1 unit Hydrochlorothiazide (Microzide) 12.5 mg PO DAILY [facility] Last Admin: 11/15/18 09:20 Dose: 12.5 mg Sodium Chloride (Sodium Chloride 0.9%) 1,000 mls @ 100 mls/hr IV .Q10H [facility] Last Admin: 11/14/18 05:05 Dose: 100 mls/hr Meropenem (Merrem Iv 1 Gm Premix) 1 gm in 50 mls @ 12.5 mls/hr IVPB Q8 [facility]; Protocol Stop: 11/23/18 06:01 Last Admin: 11/15/18 06:31 Dose: 12.5 mls/hr Linezolid (Zyvox 600mg/300ml D5w) 600 mg in 300 mls @ 200 mls/hr IVPB Q12 DANEILA; Protocol Stop: 11/23/18 10:01 Last Admin: 11/15/18 09:21 Dose: 200 mls/hr Dextrose (Dextrose 5% In Water 1000 Ml) 1,000 mls @ 0 mls/hr IV .Q0M PRN; Protocol PRN Reason: Hypoglycemia Protocol Dextrose (Dextrose 5% In Water 1000 Ml) 1,000 mls @ 0 mls/hr IV .Q0M PRN; Protocol PRN Reason: Hypoglycemia Protocol Insulin Detemir (Levemir) 22 unit SC Q12H [facility] Last Admin: 11/15/18 12:00 Dose: 22 units Insulin Human Lispro (Humalog Med) 0 units SC ACHS [facility]; Protocol Last Admin: 11/15/18 12:00 Dose: 5 units Montelukast Sodium (Singulair) 10 mg PO DAILY [facility] Last Admin: 11/15/18 09:20 Dose: 10 mg Ramipril (Altace) 2.5 mg PO DAILY [facility] Last Admin: 11/15/18 09:20 Dose: 2.5 mg Results - Vital Signs Recent Vital Signs: Last Vital Signs Temp 97.9 F 11/15/18 08:14 Pulse 88 11/15/18 08:14 Resp 20 11/15/18 08:14 BP 130/73 11/15/18 09:20 Pulse Ox 97 11/15/18 08:14 - Labs Result Diagrams: 11/13/18 19:25 11/13/18 19:25 Labs: Laboratory Results - last 24 hr 11/14/18 11/14/18 11/14/18 11:01 15:58 20:59 POC Glucose (mg/dL) 229 H 262 H 263 H Triglycerides Cholesterol LDL Cholesterol Direct HDL Cholesterol 11/15/18 11/15/18 11/15/18 04:40 06:37 10:00 POC Glucose (mg/dL) 128 H 124 H Triglycerides 96 Cholesterol 156 LDL Cholesterol Direct 74 HDL Cholesterol 52 11/15/18 11:23 POC Glucose (mg/dL) 258 H Triglycerides Cholesterol LDL Cholesterol Direct HDL Cholesterol Attending/Attestation - Attestation I have personally seen and examined this patient.: Yes I have fully participated in the care of the patient.: Yes I have reviewed all pertinent clinical information: Yes
--- NOTE | 2018-11-14 11:56 | CP.PCM.CON ---
<Rachael Irvin - Last Filed: 11/14/18 13:58> History of Present Illness - History of Present Illness History of Present Illness: ID Consult Note - Dr. Pollard HPI: 68 F with a PMHx of DM2, HLD, HTN that presented [place] [facility] with complaints of Right 1st toe swelling and tenderness. Patient is 8 days s/p a right 1st toe nail avulsion after it was found to be infected. Patient now found to have an acute fracture of the proximal phalanx of the right hallux. She was recently admitted to the hospital for IV abx for similair complaints - however returned because of increased swelling and discomfort in the affected toe. Patient noted drainage and erythema for the past week of the rt 1st digit. Patient denied fever, chills, shortness of breath, abdominal pain, nausea, vomiting, fever, chills, cough, diarrhea, constipation or dysuria. PMHx: DM2, HLD, HTN, toe nail avulsion PSHx: x 2 SHx: denies tobacco, alcohol and illicit drug use FamHx: Father, from [place] at 61yo; hx of DM/HTN/CAD Allergies: PCN, vancomycin, levaquin Review of Systems - Review of Systems Review of Systems: as per HPI otherwise negative Past Patient History - Infectious Disease Hx of Infectious Diseases: None - Tetanus Immunizations Tetanus Immunization: Unknown - Past Social History Smoking Status: Never Smoked - CARDIAC Hx Hypercholesterolemia: Yes - PULMONARY Hx Respiratory Disorders: No - NEUROLOGICAL Hx Neurological Disorder: Yes (diabetic neuropathy) - HEENT Hx HEENT Problems: Yes Hx Cataracts: Yes (bilat cataract sx) - RENAL Hx Chronic Kidney Disease: No - ENDOCRINE/METABOLIC Hx Endocrine Disorders: Yes Hx Diabetes Mellitus Type 2: Yes (iddm) - HEMATOLOGICAL/ONCOLOGICAL Hx Blood Disorders: No - INTEGUMENTARY Hx Dermatological Problems: Yes Other/Comment: black spots to both legs - MUSCULOSKELETAL/RHEUMATOLOGICAL Hx Falls: No - GASTROINTESTINAL Hx Gastrointestinal Disorders: Yes Hx Gastroesophageal Reflux: Yes Other/Comment: endoscopy with colon biopsy, hemorrhoids - GENITOURINARY/GYNECOLOGICAL Hx Genitourinary Disorders: No - PSYCHIATRIC Hx Psychophysiologic Disorder: No Hx Substance Use: No - SURGICAL HISTORY Hx Section: Yes - ANESTHESIA Hx Anesthesia: No Meds Allergies/Adverse Reactions: Allergies Allergy/AdvReac Type Severity Reaction Status Date / Time Penicillins Allergy RASH Verified 11/13/18 18:40 vancomycin Allergy RASH Verified 11/13/18 18:40 levofloxacin [From Levaquin] AdvReac SHORTNESS Verified 11/13/18 18:40 OF BREATH - Medications Medications: Current Medications Dextrose (Dextrose 50% Inj) 0 ml IV STAT PRN; Protocol PRN Reason: Hypoglycemia Protocol Sodium Chloride (Sodium Chloride 0.9%) 1,000 mls @ 100 mls/hr IV .Q10H DANIELA Last Admin: 11/14/18 05:05 Dose: 100 mls/hr Meropenem (Merrem Iv 1 Gm Premix) 1 gm in 50 mls @ 12.5 mls/hr IVPB Q8 DANIELA; Protocol Stop: 11/23/18 06:01 Last Admin: 11/14/18 05:14 Dose: 12.5 mls/hr Linezolid (Zyvox 600mg/300ml D5w) 600 mg in 300 mls @ 200 mls/hr IVPB Q12 DANIELA; Protocol Stop: 11/23/18 10:01 Last Admin: 11/14/18 10:27 Dose: 200 mls/hr Dextrose (Dextrose 5% In Water 1000 Ml) 1,000 mls @ 0 mls/hr IV .Q0M PRN; Protocol PRN Reason: Hypoglycemia Protocol Insulin Human Lispro (Humalog Med) 0 units SC ACHS DANIELA; Protocol Last Admin: 11/14/18 07:34 Dose: Not Given Physical Exam - Constitutional Appears: No Acute Distress - Head Exam Head Exam: ATRAUMATIC, NORMAL INSPECTION, NORMOCEPHALIC - Eye Exam Eye Exam: EOMI, Normal appearance, PERRL Pupil Exam: NORMAL ACCOMODATION, PERRL - ENT Exam ENT Exam: Mucous Membranes Moist, Normal Exam - Neck Exam Neck exam: Positive for: Normal Inspection - Respiratory Exam Respiratory Exam: Clear to Auscultation Bilateral, NORMAL BREATHING PATTERN - Cardiovascular Exam Cardiovascular Exam: REGULAR RHYTHM - GI/Abdominal Exam GI & Abdominal Exam: Normal Bowel Sounds, Soft. absent: Tenderness - Neurological Exam Neurological exam: Alert, CN II-XII Intact, Normal Gait, Oriented x3, Reflexes Normal - Psychiatric Exam Psychiatric exam: Normal Affect, Normal Mood - Skin Skin Exam: Dry, Intact, Normal Color, Warm Results - Vital Signs Recent Vital Signs: Last Vital Signs Temp 98.6 F 11/14/18 06:00 Pulse 97 H 11/14/18 06:00 Resp 20 11/14/18 06:00 BP 100/54 L 11/14/18 06:00 Pulse Ox 93 L 11/14/18 06:00 - Labs Result Diagrams: 11/13/18 19:25 11/13/18 19:25 Labs: Laboratory Results - last 24 hr 11/13/18 11/13/18 11/13/18 19:25 19:25 19:25 WBC 8.9 D RBC 4.24 Hgb 12.1 Hct 36.4 MCV 85.8 MCH 28.5 MCHC 33.2 RDW 13.1 Plt Count 289 MPV 9.4 Gran % 65.0 Lymph % (Auto) 26.0 [place] % (Auto) 6.1 H Eos % (Auto) 2.6 Baso % (Auto) 0.3 Gran # 5.79 Lymph # (Auto) 2.3 [place] # (Auto) 0.5 Eos # (Auto) 0.2 Baso # (Auto) 0.03 ESR 45 H pO2 VBG pH VBG pCO2 VBG HCO3 VBG Total CO2 VBG O2 Sat (Calc) VBG Base Excess VBG Potassium Sodium 136 Chloride 104 Glucose Lactate FiO2 Potassium 4.7 Carbon Dioxide 21 Anion Gap 16 BUN 25 H Creatinine 0.9 Est GFR ( Amer) > 60 Est GFR (Non-Af Amer) > 60 POC Glucose (mg/dL) Random Glucose 180 H Uric Acid 5.9 Calcium 10.0 Magnesium 1.7 Total Bilirubin 0.5 AST 30 ALT 9 Alkaline Phosphatase 86 C-React Prot High Sens 1.44 Total Protein 7.7 Albumin 4.0 Globulin 3.7 Albumin/Globulin Ratio 1.1 Venous Blood Potassium Urine Color Urine Appearance Urine pH Ur Specific [place] Urine Protein Urine Glucose (UA) Urine Ketones Urine Blood Urine Nitrate Urine Bilirubin Urine Urobilinogen Ur Leukocyte Esterase 11/13/18 11/13/18 11/14/18 19:25 22:27 00:18 WBC RBC Hgb Hct MCV MCH MCHC RDW Plt Count MPV Gran % Lymph % (Auto) [place] % (Auto) Eos % (Auto) Baso % (Auto) Gran # Lymph # (Auto) [place] # (Auto) Eos # (Auto) Baso # (Auto) ESR pO2 39 VBG pH 7.32 VBG pCO2 53.0 VBG HCO3 27.3 VBG Total CO2 28.9 H VBG O2 Sat (Calc) 73.7 H VBG Base Excess 0.3 VBG Potassium 5.0 Sodium 138.0 Chloride 103.0 Glucose 173 H Lactate 1.4 FiO2 21.0 Potassium Carbon Dioxide Anion Gap BUN Creatinine Est GFR ( Amer) Est GFR (Non-Af Amer) POC Glucose (mg/dL) 200 H Random Glucose Uric Acid Calcium Magnesium Total Bilirubin AST ALT Alkaline Phosphatase C-React Prot High Sens Total Protein Albumin Globulin Albumin/Globulin Ratio Venous Blood Potassium 5.0 Urine Color Light yellow Urine Appearance Clear Urine pH 6.0 Ur Specific [place] <= 1.005 Urine Protein Negative Urine Glucose (UA) Negative Urine Ketones Negative Urine Blood Negative Urine Nitrate Negative Urine Bilirubin Negative Urine Urobilinogen 0.2 Ur Leukocyte Esterase Negative 11/14/18 06:46 WBC RBC Hgb Hct MCV MCH MCHC RDW Plt Count MPV Gran % Lymph % (Auto) [place] % (Auto) Eos % (Auto) Baso % (Auto) Gran # Lymph # (Auto) [place] # (Auto) Eos # (Auto) Baso # (Auto) ESR pO2 VBG pH VBG pCO2 VBG HCO3 VBG Total CO2 VBG O2 Sat (Calc) VBG Base Excess VBG Potassium Sodium Chloride Glucose Lactate FiO2 Potassium Carbon Dioxide Anion Gap BUN Creatinine Est GFR ( Amer) Est GFR (Non-Af Amer) POC Glucose (mg/dL) 106 Random Glucose Uric Acid Calcium Magnesium Total Bilirubin AST ALT Alkaline Phosphatase C-React Prot High Sens Total Protein Albumin Globulin Albumin/Globulin Ratio Venous Blood Potassium Urine Color Urine Appearance Urine pH Ur Specific [place] Urine Protein Urine Glucose (UA) Urine Ketones Urine Blood Urine Nitrate Urine Bilirubin Urine Urobilinogen Ur Leukocyte Esterase Assessment & Plan - Assessment and Plan (Free Text) Assessment: 68yo female with history of HTN, HLD presents with right foot pain. ID consulted for evaluation. right foot 1st digit cellulitis hx of htn hx of hld hx of dm type 2 hx of klebsiella uti -R. Foot Xray revealed acute fracture, would be difficult to distinguish OM with further imaging - Zyvox & merrem -ESR elevated/CRP negative/ PCT neg/ BCx/ wcx -Lower extremity arterial duplex -Podiatry Reccs -wound care Patient seen and case discussed/reviewed with attending, Dr. Pollard <Mainor Pollard S - Last Filed: 11/14/18 21:52> Meds - Medications Medications: Current Medications Acetaminophen (Tylenol 325mg Tab) 650 mg PO Q4H PRN PRN Reason: pain fever Atorvastatin Calcium (Lipitor) 10 mg PO DIN DANIELA Dextrose (Dextrose 50% Inj) 0 ml IV STAT PRN; Protocol PRN Reason: Hypoglycemia Protocol Dextrose (Dextrose 50% Inj) 0 ml IV STAT PRN; Protocol PRN Reason: Hypoglycemia Protocol Gabapentin (Neurontin) 300 mg PO TID DANIELA; Protocol Home Med (Home Med) 1 unit PO DAILY DANIELA Home Med (Home Med) 1 unit PO BID [facility] Hydrochlorothiazide (Microzide) 12.5 mg PO DAILY [facility] Sodium Chloride (Sodium Chloride 0.9%) 1,000 mls @ 100 mls/hr IV .Q10H DANIELA Last Admin: 11/14/18 05:05 Dose: 100 mls/hr Meropenem (Merrem Iv 1 Gm Premix) 1 gm in 50 mls @ 12.5 mls/hr IVPB Q8 DANIELA; Protocol Stop: 11/23/18 06:01 Last Admin: 11/14/18 21:00 Dose: 12.5 mls/hr Linezolid (Zyvox 600mg/300ml D5w) 600 mg in 300 mls @ 200 mls/hr IVPB Q12 DANIELA; Protocol Stop: 11/23/18 10:01 Last Admin: 11/14/18 20:56 Dose: 200 mls/hr Dextrose (Dextrose 5% In Water 1000 Ml) 1,000 mls @ 0 mls/hr IV .Q0M PRN; Protocol PRN Reason: Hypoglycemia Protocol Dextrose (Dextrose 5% In Water 1000 Ml) 1,000 mls @ 0 mls/hr IV .Q0M PRN; Protocol PRN Reason: Hypoglycemia Protocol Insulin Detemir (Levemir) 22 unit SC Q12H [facility] Last Admin: 11/14/18 21:00 Dose: 22 units Insulin Human Lispro (Humalog Med) 0 units SC ACHS [facility]; Protocol Last Admin: 11/14/18 16:36 Dose: 5 units Montelukast Sodium (Singulair) 10 mg PO DAILY [facility] Ramipril (Altace) 2.5 mg PO DAILY [facility] Results - Vital Signs Recent Vital Signs: Last Vital Signs Temp 98.6 F 11/14/18 06:00 Pulse 97 H 11/14/18 06:00 Resp 20 11/14/18 06:00 BP 100/54 L 11/14/18 06:00 Pulse Ox 93 L 11/14/18 06:00 - Labs Result Diagrams: 11/13/18 19:25 11/13/18 19:25 Labs: Laboratory Results - last 24 hr 11/13/18 11/13/18 11/13/18 19:25 19:25 22:27 POC Glucose (mg/dL) C-React Prot High Sens 1.44 Procalcitonin < 0.05 L Urine Color Light yellow Urine Appearance Clear Urine pH 6.0 Ur Specific [place] <= 1.005 Urine Protein Negative Urine Glucose (UA) Negative Urine Ketones Negative Urine Blood Negative Urine Nitrate Negative Urine Bilirubin Negative Urine Urobilinogen 0.2 Ur Leukocyte Esterase Negative 11/14/18 11/14/18 11/14/18 00:18 06:46 11:01 POC Glucose (mg/dL) 200 H 106 229 H C-React Prot High Sens Procalcitonin Urine Color Urine Appearance Urine pH Ur Specific [place] Urine Protein Urine Glucose (UA) Urine Ketones Urine Blood Urine Nitrate Urine Bilirubin Urine Urobilinogen Ur Leukocyte Esterase 11/14/18 20:59 POC Glucose (mg/dL) 263 H C-React Prot High Sens Procalcitonin Urine Color Urine Appearance Urine pH Ur Specific [place] Urine Protein Urine Glucose (UA) Urine Ketones Urine Blood Urine Nitrate Urine Bilirubin Urine Urobilinogen Ur Leukocyte Esterase Assessment & Plan - Assessment and Plan (Free Text) Assessment: Infectious diseases Attending Physician Attestation Patient seen and examined, discussed with medical facilities section director. I have reviewed the patient's history of present illness, past medical, social, personal and family histories, pertinent physical exam findings, course so far in this hospital admission, pertinent laboratory and imaging results. I agree with the above findings, assessment and plan. In addition, we have started Zyvox and Merrem for patient with 1st toe skin and skin structure infection R/O osteomyelitis associated with 1st toe fracture. Follow up further plans of Podiatry. Follow up wound cx.
[2018-11-14] MEDS: Insulin Detemir 100 units/ml Vial (Levemir) SC SCH (21:00)
[2018-11-15] MEDS: Meropenem IV 1 gm in NS 1 GM/50 ML BAG IVPB SCH ×3 (06:31→21:33)
--- NOTE | 2018-11-15 08:55 | CP.PCM.PN ---
<Michelle Baez - Last Filed: 11/15/18 08:59> Subjective - Date & Time of Evaluation Date of Evaluation: 11/15/18 Time of Evaluation: 08:51 - Subjective Subjective: Podiatry Progress Note: Dr. Ramos 68F patient seen and evaluated for R hallux proximal phalanx fracture. Patient is resting comfortably and in NAD. She reports ocassional mild pain, that is throbbing in nature, to the R hallux, however pain is well controlled at this time. She denies any new pedal complaints. Denies N/V/F/SOB/CP. Objective - Vital Signs/Intake and Output Vital Signs (last 24 hours): Temp Pulse Resp BP Pulse Ox 97.9 F 88 20 123/75 97 11/15/18 08:14 11/15/18 08:14 11/15/18 08:14 11/15/18 08:14 11/15/18 08:14 Intake and Output: 11/15/18 11/15/18 06:59 18:59 Intake Total 300 Balance 300 - Medications Medications: Current Medications Acetaminophen (Tylenol 325mg Tab) 650 mg PO Q4H PRN PRN Reason: pain fever Atorvastatin Calcium (Lipitor) 10 mg PO DIN [facility] Dextrose (Dextrose 50% Inj) 0 ml IV STAT PRN; Protocol PRN Reason: Hypoglycemia Protocol Dextrose (Dextrose 50% Inj) 0 ml IV STAT PRN; Protocol PRN Reason: Hypoglycemia Protocol Gabapentin (Neurontin) 300 mg PO TID [facility]; Protocol Home Med (Home Med) 1 unit PO DAILY [facility] Home Med (Home Med) 1 unit PO BID [facility] Hydrochlorothiazide (Microzide) 12.5 mg PO DAILY [facility] Sodium Chloride (Sodium Chloride 0.9%) 1,000 mls @ 100 mls/hr IV .Q10H [facility] Last Admin: 11/14/18 05:05 Dose: 100 mls/hr Meropenem (Merrem Iv 1 Gm Premix) 1 gm in 50 mls @ 12.5 mls/hr IVPB Q8 [facility]; Protocol Stop: 11/23/18 06:01 Last Admin: 11/15/18 06:31 Dose: 12.5 mls/hr Linezolid (Zyvox 600mg/300ml D5w) 600 mg in 300 mls @ 200 mls/hr IVPB Q12 [facility]; Protocol Stop: 11/23/18 10:01 Last Admin: 11/14/18 20:56 Dose: 200 mls/hr Dextrose (Dextrose 5% In Water 1000 Ml) 1,000 mls @ 0 mls/hr IV .Q0M PRN; Protocol PRN Reason: Hypoglycemia Protocol Dextrose (Dextrose 5% In Water 1000 Ml) 1,000 mls @ 0 mls/hr IV .Q0M PRN; Protocol PRN Reason: Hypoglycemia Protocol Insulin Detemir (Levemir) 22 unit SC Q12H [facility] Last Admin: 11/14/18 21:00 Dose: 22 units Insulin Human Lispro (Humalog Med) 0 units SC ACHS [facility]; Protocol Last Admin: 11/14/18 22:00 Dose: Not Given Montelukast Sodium (Singulair) 10 mg PO DAILY [facility] Ramipril (Altace) 2.5 mg PO DAILY [facility] - Labs Labs: 11/13/18 19:25 11/13/18 19:25 - Constitutional Appears: Well, Non-toxic, No Acute Distress - Head Exam Head Exam: ATRAUMATIC, NORMOCEPHALIC - Extremities Exam Additional comments: RLE Focused Exam Vasc: DP and PT 2/4 bilaterally, Cap refill less than 3 seconds to all digits, Temp gradient is warm to cool from proximal to distal, Mild edema noted at the right hallux extending proximally to the level of the 1st MTPJ Ortho: No pain on palpation the right hallux. Muscle power intact 5/5 to all groups Neuro: Gross sensation intact, protective sensation diminished Derm: No open lesions, mild erythema, no drainage, no purulence, no probe to bone, no malodor. - Neurological Exam Neurological Exam: Alert, Awake, Oriented x3 - Psychiatric Exam Psychiatric exam: Normal Affect, Normal Mood Assessment and Plan - Assessment and Plan (Free Text) Assessment: 68F patient seen and evaluated for R hallux proximal phalanx fracture. Plan: Patient seen and evaluated at bedside with Dr. Ramos Patient labs, chart and vitals reviewed, WBC 8.9 Right foot X-ray: minimally displaced fracture of R proximal phalanx Right foot MRI: minimally displaced fracture proximal phalanx big toe, no evidence of OM Wound culture; no growth Blood culture; no growth R hallux dressed with betadine and DSD Ordered forefoot wedge shoe to be worn on the R at all times with ambulation Continue IV Abx as per ID reccs; Zyvox & merrem No Podiatric surgical intervention at this time, patient stable from podiatry stand point <Vinay Ramos - Last Filed: 11/15/18 12:40> Objective - Vital Signs/Intake and Output Vital Signs (last 24 hours): Temp Pulse Resp BP Pulse Ox 97.9 F 88 20 130/73 97 11/15/18 08:14 11/15/18 08:14 11/15/18 08:14 11/15/18 09:20 11/15/18 08:14 Intake and Output: 11/15/18 11/15/18 06:59 18:59 Intake Total 300 Balance 300 - Medications Medications: Current Medications Acetaminophen (Tylenol 325mg Tab) 650 mg PO Q4H PRN PRN Reason: pain fever Atorvastatin Calcium (Lipitor) 10 mg PO DIN [facility] Dextrose (Dextrose 50% Inj) 0 ml IV STAT PRN; Protocol PRN Reason: Hypoglycemia Protocol Dextrose (Dextrose 50% Inj) 0 ml IV STAT PRN; Protocol PRN Reason: Hypoglycemia Protocol Gabapentin (Neurontin) 300 mg PO TID [facility]; Protocol Last Admin: 11/15/18 09:20 Dose: 300 mg Home Med (Home Med) 1 unit PO DAILY [facility] Last Admin: 11/15/18 09:21 Dose: 1 unit Home Med (Home Med) 1 unit PO BID [facility] Last Admin: 11/15/18 09:20 Dose: 1 unit Hydrochlorothiazide (Microzide) 12.5 mg PO DAILY [facility] Last Admin: 11/15/18 09:20 Dose: 12.5 mg Sodium Chloride (Sodium Chloride 0.9%) 1,000 mls @ 100 mls/hr IV .Q10H [facility] Last Admin: 11/14/18 05:05 Dose: 100 mls/hr Meropenem (Merrem Iv 1 Gm Premix) 1 gm in 50 mls @ 12.5 mls/hr IVPB Q8 [facility]; Protocol Stop: 11/23/18 06:01 Last Admin: 11/15/18 06:31 Dose: 12.5 mls/hr Linezolid (Zyvox 600mg/300ml D5w) 600 mg in 300 mls @ 200 mls/hr IVPB Q12 [facility]; Protocol Stop: 11/23/18 10:01 Last Admin: 11/15/18 09:21 Dose: 200 mls/hr Dextrose (Dextrose 5% In Water 1000 Ml) 1,000 mls @ 0 mls/hr IV .Q0M PRN; Protocol PRN Reason: Hypoglycemia Protocol Dextrose (Dextrose 5% In Water 1000 Ml) 1,000 mls @ 0 mls/hr IV .Q0M PRN; Protocol PRN Reason: Hypoglycemia Protocol Insulin Detemir (Levemir) 22 unit SC Q12H [facility] Last Admin: 11/15/18 12:00 Dose: 22 units Insulin Human Lispro (Humalog Med) 0 units SC ACHS [facility]; Protocol Last Admin: 11/15/18 12:00 Dose: 5 units Montelukast Sodium (Singulair) 10 mg PO DAILY [facility] Last Admin: 11/15/18 09:20 Dose: 10 mg Ramipril (Altace) 2.5 mg PO DAILY [facility] Last Admin: 11/15/18 09:20 Dose: 2.5 mg - Labs Labs: 11/13/18 19:25 11/13/18 19:25 Attending/Attestation - Attestation I have personally seen and examined this patient.: Yes I have fully participated in the care of the patient.: Yes I have reviewed all pertinent clinical information, including history, physical exam and plan: Yes
[2018-11-15] MEDS: SITAGLIPTIN METFORMIN PO SCH ×2 (09:20→17:24)
[2018-11-15] MEDS: LINZESS PO SCH (09:21)
[2018-11-15] MEDS: Insulin Lispro (humaLOG) MEDIUM Coverage SC SCH ×3 (09:21→16:40)
[2018-11-15] MEDS: Linezolid 600 mg in D5W 300 ml 600 MG/300 ML BAG IVPB SCH ×2 (09:21→21:24)
--- NOTE | 2018-11-15 10:14 | CP.PCM.PN ---
Subjective - Date & Time of Evaluation Date of Evaluation: 11/15/18 Time of Evaluation: 09:30 - Subjective Subjective: No fevers, not in distress, afebrile, less pain in the foot. Objective - Vital Signs/Intake and Output Vital Signs (last 24 hours): Temp Pulse Resp BP Pulse Ox 98.6 F 97 H 20 100/54 L 93 L 11/14/18 06:00 11/14/18 06:00 11/14/18 06:00 11/14/18 06:00 11/14/18 06:00 Intake and Output: 11/14/18 11/15/18 18:59 06:59 Intake Total 180 Balance 180 - Medications Medications: Current Medications Acetaminophen (Tylenol 325mg Tab) 650 mg PO Q4H PRN PRN Reason: pain fever Atorvastatin Calcium (Lipitor) 10 mg PO DIN [facility] Dextrose (Dextrose 50% Inj) 0 ml IV STAT PRN; Protocol PRN Reason: Hypoglycemia Protocol Dextrose (Dextrose 50% Inj) 0 ml IV STAT PRN; Protocol PRN Reason: Hypoglycemia Protocol Gabapentin (Neurontin) 300 mg PO TID [facility]; Protocol Home Med (Home Med) 1 unit PO DAILY [facility] Home Med (Home Med) 1 unit PO BID [facility] Hydrochlorothiazide (Microzide) 12.5 mg PO DAILY [facility] Sodium Chloride (Sodium Chloride 0.9%) 1,000 mls @ 100 mls/hr IV .Q10H [facility] Last Admin: 11/14/18 05:05 Dose: 100 mls/hr Meropenem (Merrem Iv 1 Gm Premix) 1 gm in 50 mls @ 12.5 mls/hr IVPB Q8 [facility]; Protocol Stop: 11/23/18 06:01 Last Admin: 11/14/18 21:00 Dose: 12.5 mls/hr Linezolid (Zyvox 600mg/300ml D5w) 600 mg in 300 mls @ 200 mls/hr IVPB Q12 [facility]; Protocol Stop: 11/23/18 10:01 Last Admin: 11/14/18 20:56 Dose: 200 mls/hr Dextrose (Dextrose 5% In Water 1000 Ml) 1,000 mls @ 0 mls/hr IV .Q0M PRN; Protocol PRN Reason: Hypoglycemia Protocol Dextrose (Dextrose 5% In Water 1000 Ml) 1,000 mls @ 0 mls/hr IV .Q0M PRN; Protocol PRN Reason: Hypoglycemia Protocol Insulin Detemir (Levemir) 22 unit SC Q12H [facility] Last Admin: 11/14/18 21:00 Dose: 22 units Insulin Human Lispro (Humalog Med) 0 units SC ACHS [facility]; Protocol Last Admin: 11/14/18 16:36 Dose: 5 units Montelukast Sodium (Singulair) 10 mg PO DAILY [facility] Ramipril (Altace) 2.5 mg PO DAILY [facility] - Labs Labs: 11/13/18 19:25 11/13/18 19:25 - Constitutional Appears: Chronically Ill - Head Exam Head Exam: NORMAL INSPECTION - Respiratory Exam Respiratory Exam: Decreased Breath Sounds - Cardiovascular Exam Cardiovascular Exam: +S1, +S2 - GI/Abdominal Exam GI & Abdominal Exam: Soft. absent: Tenderness - Extremities Exam Additional comments: right foot with dressings in place Assessment and Plan - Assessment and Plan (Free Text) Plan: Assessment 1st toe skin and skin structure infection associated with 1st toe minimal fracture; MRI on 11/08/2018 did not show osteomyelitis history of sepsis due to cystitis CAD dyslipidemia history of colitis DM Plan continue Zyvox and Merrem day 2 and will follow up wound cx will continue to monitor clinically follow up further plans of Podiatry
[2018-11-15 10:56] LABS: HDL CHOLESTEROL 52 mg/dL (29-60)
[2018-11-15 11:07] LABS: LDL CHOLESTEROL 74 mg/dL (0-129)
[2018-11-15] MEDS: Insulin Detemir 100 units/ml Vial (Levemir) SC SCH (12:00)
--- NOTE | 2018-11-15 13:23 | HP ---
DATE OF EXAM: 11/14/2018 The patient was seen and examined at bedside on 11/14/2018. CHIEF COMPLAINTS: Right foot first degenerative toe, red, warm and painful. HISTORY OF PRESENT ILLNESS: Ms. Harmony Sequeira is 68 years old my private patient with history of hypertension, hypercholesteremia, insulin-dependant diabetes mellitus uncontrolled, went to see Dr. Dickinson as Senior Sales Compensation Analyst as outpatient for right foot first degenerative toe pain, warm and redness. Was on p.o. antibiotics, but symptoms are not improving. She failed oral outpatient treatment. The patient was in the hospital one week ago, discharged home with oral doxycycline by Infectious Disease for right foot first degenerative great toe infection. In the hospital, the patient got last time aztreonam and Zyvox, discharged home, seen by Dr. Dickinson as outpatient. Has cellulitis and told her to go to the emergency room for admission and the patient is admitting having fever at home. No numbness. No tingling. No headache. No dizziness. I saw patient in her room. PAST MEDICAL HISTORY: As above. History of hypertension, hypercholesteremia, insulin-dependant diabetes mellitus not very well controlled, diabetic neuropathy, bilateral cataract surgery, GERD, dyspepsia, hemorrhoids, history of bad constipation, he is on Linzess. FAMILY HISTORY: Father and mother, noncontributory. HABITS: No smoking. No drugs. No ethanol. ALLERGIES: THE PATIENT IS ALLERGIC TO PENICILLIN, VANCOMYCIN AND LEVOFLOXACIN. HOME MEDICATIONS: Metformin, Lipitor, Caltrate, Neurontin, hydrochlorothiazide, Lantus, Lispro, Linzess, Singulair, vitamins. REVIEW OF SYSTEMS: The patient was seen and examined at the bedside in her room, looking comfortable. No fatigue. No vision changes. No hearing changes. No shortness of breath. No coughing. No chest pain. No abdominal pain. No nausea or vomiting. No arthralgia. No pruritus. No laceration, abscess or ulceration on the skin. No headache. No dizziness. No anxiety or depression or suicidal ideation. But right foot big toe is red, warm and tender to touch. PHYSICAL EXAMINATION: VITAL SIGNS: Temperature 98.2, pulse 99, respiratory 18, blood pressure 105/64 and pulse oximetry 96%. HEENT: Head normocephalic and atraumatic. Eyes: PERRLA. Extraocular muscles intact. Conjunctivae clear. Nose patent. Mucous membrane moist. NECK: Supple. No carotid bruits. No JVD or thyromegaly. CHEST: Clear to auscultation. HEART: S1 and S2, positive. ABDOMEN: Soft. Bowel sounds positive. No organomegaly. EXTREMITIES: Upper extremities no edema and no cyanosis. Lower extremity, right foot first great toe noted to have cellulitis of the great toe and first metatarsal joint with erythema, tender. NEUROLOGIC: The patient is awake and alert. Moving all 4 extremities. No focal deficits. LABORATORY DATA: White blood cell 8.9, hemoglobin 12.1, hematocrit 36.4 and platelets 289. Sodium 136, potassium 4.7, BUN 25, creatinine 0.9 and glucose 180. ASSESSMENT AND PLAN: Ms. Harmony Sequeira is 68-year-old lady with insulin-dependant not controlled diabetes mellitus, history of hypercholesteremia, hypertension, history of toe nail avulsion, history of urinary tract infection Klebsiella, right foot x-ray revealed acute fracture, would be difficult to distinguish osteomyelitis with further imaging. Started the patient on Zyvox and Merrem. ESR elevated. Cellulitis of the foot, dehydration, failure of outpatient treatment. Chest x-ray and foot x-ray reviewed by me. Discussion done with Dr. Dickinson. History of infected right ingrowing toenail. MRI noted. Wound cleaned with sterile saline then dressed with Betadine and dry sterile dressing by the Senior Sales Compensation Analyst. Infectious Disease is on the board, Senior Sales Compensation Analyst is on the board. Ordered shoes. Discussion done with the patient and patient's nursing staff. Some of her medications are not formulary in [facility]. The patient will take home medications. We will followup. Ramya Proctor MD
[2018-11-15] MEDS ORDERED: INSULIN LISPRO 100 UNIT/ML SC SCH (18:00)
[2018-11-15] MEDS: INSULIN GLARGINE 100 UNIT/ML SC SCH (21:31)
--- NOTE | 2018-11-16 03:27 | PN ---
DATE: 11/15/2018 SUBJECTIVE: The patient was seen and examined at bedside on 11/15/2018. Resting comfortable. According to her, she regained her energy. No fever. No chills. No hematuria. No hematochezia. No headache or dizziness. No chest pain. No palpitation. PHYSICAL EXAMINATION: VITAL SIGNS: Temperature 98.6, pulse 97, respiratory rate 20, blood pressure 100/54 and pulse oximetry 93%. HEENT: Head is normocephalic and atraumatic. Eyes; PERRLA. Extraocular muscles intact. Conjunctivae clear. Nose patent. Mucous membranes moist. NECK: Supple. No carotid bruit. No JVD or thyromegaly. CHEST: Bilaterally symmetrical. HEART: S1 and S2 positive. LUNGS: Clear to auscultation. ABDOMEN: Soft. Bowel sounds present. No organomegaly. EXTREMITIES: No edema. No cyanosis. 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 MEDICATIONS: Tylenol, Lipitor, Neurontin, Merrem, Zyvox, dextrose, insulin, and ramipril. LABORATORY DATA: White blood cell 8.9, hemoglobin 12.1, hematocrit 36.4, and platelets 289. Sodium 136, potassium 4.7, BUN 24, creatinine 0.9, and glucose 180. ASSESSMENT: Ms. Harmony Sequeira is a 68-year-old lady with hyperglycemia; insulin-dependant diabetes mellitus, uncontrolled; first toe skin infection associated with first toe minimally displaced fracture. MRI on 11/08/2018 which shows . PLAN: Continue Zosyn, Merrem day . We will follow up wound cultures. We will continue to monitor him clinically. Lead Quality Technician and ID are on the case. Gastrointestinal and DVT prophylaxis. Repeat labs. We will follow up. Ramya Proctor MD
[2018-11-16] MEDS: Meropenem IV 1 gm in NS 1 GM/50 ML BAG IVPB SCH ×3 (06:20→21:58)
[2018-11-16 07:22] LABS: HEMOGLOBIN 10.8 g/dL (12.0-16.0); MEAN CELL VOLUME 86.6 fl (80.0-105.0); MEAN CORPUSCULAR HEMOGLOBIN 27.9 pg (25.0-35.0); MEAN CORPUSCULAR HGB CONC 32.2 g/dl (31.0-37.0); MEAN PLATELET VOLUME 9.3 fl (7.0-11.0); RBC 3.87 10^6/uL (3.5-6.1); RED CELL DISTRIBUTION WIDTH 12.9 % (11.5-14.5); WHITE BLOOD COUNT 6.6 10^3/uL (4.5-11.0)
[2018-11-16 08:16] LABS: BLOOD UREA NITROGEN 13 mg/dL (7-21); GFR NON-AFRICAN AMERICAN > 60
--- NOTE | 2018-11-16 09:55 | CP.PCM.PN ---
<Michelle Baez - Last Filed: 11/16/18 09:50> Subjective - Date & Time of Evaluation Date of Evaluation: 11/16/18 Time of Evaluation: 09:50 - Subjective Subjective: Podiatry Progress Note: Dr. Ramos 68F patient seen and evaluated for R hallux proximal phalanx fracture. Patient is resting comfortably and in NAD. She states that she is in no pain today. Patient mentions that she would like to go home to take care of her disabled child and if IV antibiotics are necessary she will come to the hospital daily for continued treatment. No new pedal complaints. Denies N/V/F/SOB/CP. Objective - Vital Signs/Intake and Output Vital Signs (last 24 hours): Temp Pulse Resp BP Pulse Ox 97.8 F 87 20 126/71 96 11/16/18 07:00 11/16/18 07:00 11/16/18 07:00 11/16/18 07:00 11/16/18 07:00 Intake and Output: 11/16/18 11/16/18 06:59 18:59 Intake Total 540 Output Total 0 Balance 540 - Medications Medications: Current Medications Acetaminophen (Tylenol 325mg Tab) 650 mg PO Q4H PRN PRN Reason: pain fever Atorvastatin Calcium (Lipitor) 10 mg PO DIN [facility] Last Admin: 11/15/18 17:24 Dose: 10 mg Dextrose (Dextrose 50% Inj) 0 ml IV STAT PRN; Protocol PRN Reason: Hypoglycemia Protocol Dextrose (Dextrose 50% Inj) 0 ml IV STAT PRN; Protocol PRN Reason: Hypoglycemia Protocol Gabapentin (Neurontin) 300 mg PO TID [facility]; Protocol Last Admin: 11/15/18 17:24 Dose: 300 mg Home Med (Home Med) 1 unit PO DAILY [facility] Last Admin: 11/15/18 09:21 Dose: 1 unit Home Med (Home Med) 1 unit PO BID [facility] Last Admin: 11/15/18 17:24 Dose: 1 unit Home Med (Home Med) 50 unit SC HS [facility] Last Admin: 11/15/18 21:31 Dose: 50 unit Home Med (Home Med) 15 unit SC TID [facility] Hydrochlorothiazide (Microzide) 12.5 mg PO DAILY [facility] Last Admin: 11/15/18 09:20 Dose: 12.5 mg Sodium Chloride (Sodium Chloride 0.9%) 1,000 mls @ 100 mls/hr IV .Q10H [facility] Last Admin: 11/14/18 05:05 Dose: 100 mls/hr Meropenem (Merrem Iv 1 Gm Premix) 1 gm in 50 mls @ 12.5 mls/hr IVPB Q8 [facility]; Protocol Stop: 11/23/18 06:01 Last Admin: 11/16/18 06:20 Dose: 12.5 mls/hr Linezolid (Zyvox 600mg/300ml D5w) 600 mg in 300 mls @ 200 mls/hr IVPB Q12 [facility]; Protocol Stop: 11/23/18 10:01 Last Admin: 11/15/18 21:24 Dose: 200 mls/hr Dextrose (Dextrose 5% In Water 1000 Ml) 1,000 mls @ 0 mls/hr IV .Q0M PRN; Protocol PRN Reason: Hypoglycemia Protocol Dextrose (Dextrose 5% In Water 1000 Ml) 1,000 mls @ 0 mls/hr IV .Q0M PRN; Protocol PRN Reason: Hypoglycemia Protocol Montelukast Sodium (Singulair) 10 mg PO DAILY [facility] Last Admin: 11/15/18 09:20 Dose: 10 mg Ramipril (Altace) 2.5 mg PO DAILY [facility] Last Admin: 11/15/18 09:20 Dose: 2.5 mg - Labs Labs: 11/16/18 06:30 11/16/18 06:30 - Constitutional Appears: Well, Non-toxic, No Acute Distress - Head Exam Head Exam: ATRAUMATIC, NORMOCEPHALIC - Extremities Exam Additional comments: RLE Focused Exam Vasc: DP and PT 2/4 bilaterally, Cap refill less than 3 seconds to all digits, Temp gradient is warm to cool from proximal to distal, +1 edema noted at the right hallux extending proximally to the level of the 1st MTPJ Ortho: No pain on palpation the right hallux. Muscle power intact 5/5 to all groups Neuro: Gross sensation intact, protective sensation diminished Derm: No open lesions, mild erythema, no drainage, no purulence, no probe to bone, no malodor, no clinical signs of active infection - Neurological Exam Neurological Exam: Alert, Awake, Oriented x3 - Psychiatric Exam Psychiatric exam: Normal Affect, Normal Mood Assessment and Plan - Assessment and Plan (Free Text) Assessment: 68F patient seen and evaluated for R hallux proximal phalanx fracture. Plan: Patient seen and evaluated at bedside Patient labs, chart and vitals reviewed, WBC 6.6 Right foot X-ray: minimally displaced fracture of R proximal phalanx Right foot MRI: minimally displaced fracture proximal phalanx big toe, no evidence of OM Wound culture; no growth Blood culture; no growth after 48 hrs R hallux dressed with betadine and DSD Ordered forefoot wedge shoe to be worn on the R at all times with ambulation Continue IV Abx as per ID reccs; Zyvox & merrem No Podiatric surgical intervention at this time, patient stable from podiatry stand point Will discuss outpatient treatment with ID and case management as per patients request <Vinay Ramos - Last Filed: 11/18/18 12:35> Objective - Vital Signs/Intake and Output Vital Signs (last 24 hours): Temp Pulse Resp BP Pulse Ox 98 F 89 20 120/65 95 11/17/18 06:00 11/17/18 06:00 11/17/18 06:00 11/17/18 09:08 11/17/18 06:00 - Labs Labs: 11/16/18 06:30 11/16/18 06:30 Attending/Attestation - Attestation I have personally seen and examined this patient.: Yes I have fully participated in the care of the patient.: Yes I have reviewed all pertinent clinical information, including history, physical exam and plan: Yes
[2018-11-16] MEDS: Linezolid 600 mg in D5W 300 ml 600 MG/300 ML BAG IVPB SCH ×2 (10:33→21:57)
[2018-11-16] MEDS: LINZESS PO SCH (10:40)
[2018-11-16] MEDS: SITAGLIPTIN METFORMIN PO SCH ×2 (10:41→18:27)
[2018-11-16] MEDS: INSULIN LISPRO 100 UNIT/ML SC SCH ×3 (11:50→18:00)
--- NOTE | 2018-11-16 17:40 | CP.PCM.PN ---
Subjective - Date & Time of Evaluation Date of Evaluation: 11/16/18 Time of Evaluation: 11:05 - Subjective Subjective: No fevers, not in distress. Less pa in the foot. Objective - Vital Signs/Intake and Output Vital Signs (last 24 hours): Temp Pulse Resp BP Pulse Ox 97.9 F 88 20 130/73 97 11/15/18 08:14 11/15/18 08:14 11/15/18 08:14 11/15/18 09:20 11/15/18 08:14 Intake and Output: 11/15/18 11/15/18 06:59 18:59 Intake Total 300 Balance 300 - Medications Medications: Current Medications Acetaminophen (Tylenol 325mg Tab) 650 mg PO Q4H PRN PRN Reason: pain fever Atorvastatin Calcium (Lipitor) 10 mg PO DIN [facility] Dextrose (Dextrose 50% Inj) 0 ml IV STAT PRN; Protocol PRN Reason: Hypoglycemia Protocol Dextrose (Dextrose 50% Inj) 0 ml IV STAT PRN; Protocol PRN Reason: Hypoglycemia Protocol Gabapentin (Neurontin) 300 mg PO TID [facility]; Protocol Last Admin: 11/15/18 09:20 Dose: 300 mg Home Med (Home Med) 1 unit PO DAILY [facility] Last Admin: 11/15/18 09:21 Dose: 1 unit Home Med (Home Med) 1 unit PO BID [facility] Last Admin: 11/15/18 09:20 Dose: 1 unit Hydrochlorothiazide (Microzide) 12.5 mg PO DAILY [facility] Last Admin: 11/15/18 09:20 Dose: 12.5 mg Sodium Chloride (Sodium Chloride 0.9%) 1,000 mls @ 100 mls/hr IV .Q10H [facility] Last Admin: 11/14/18 05:05 Dose: 100 mls/hr Meropenem (Merrem Iv 1 Gm Premix) 1 gm in 50 mls @ 12.5 mls/hr IVPB Q8 [facility]; Protocol Stop: 11/23/18 06:01 Last Admin: 11/15/18 06:31 Dose: 12.5 mls/hr Linezolid (Zyvox 600mg/300ml D5w) 600 mg in 300 mls @ 200 mls/hr IVPB Q12 [facility]; Protocol Stop: 11/23/18 10:01 Last Admin: 11/15/18 09:21 Dose: 200 mls/hr Dextrose (Dextrose 5% In Water 1000 Ml) 1,000 mls @ 0 mls/hr IV .Q0M PRN; Protocol PRN Reason: Hypoglycemia Protocol Dextrose (Dextrose 5% In Water 1000 Ml) 1,000 mls @ 0 mls/hr IV .Q0M PRN; Protocol PRN Reason: Hypoglycemia Protocol Insulin Detemir (Levemir) 22 unit SC Q12H [facility] Last Admin: 11/14/18 21:00 Dose: 22 units Insulin Human Lispro (Humalog Med) 0 units SC ACHS [facility]; Protocol Last Admin: 11/15/18 09:21 Dose: Not Given Montelukast Sodium (Singulair) 10 mg PO DAILY [facility] Last Admin: 11/15/18 09:20 Dose: 10 mg Ramipril (Altace) 2.5 mg PO DAILY [facility] Last Admin: 11/15/18 09:20 Dose: 2.5 mg - Labs Labs: 11/13/18 19:25 11/13/18 19:25 - Constitutional Appears: Chronically Ill - Head Exam Head Exam: NORMAL INSPECTION - Respiratory Exam Respiratory Exam: Decreased Breath Sounds - Cardiovascular Exam Cardiovascular Exam: +S1, +S2 - GI/Abdominal Exam GI & Abdominal Exam: Soft. absent: Tenderness - Extremities Exam Additional comments: right foot with dressings in place Assessment and Plan - Assessment and Plan (Free Text) Plan: Assessment 1st toe skin and skin structure infection associated with 1st toe minimal fracture on the right foot; MRI on 11/08/2018 did not show osteomyelitis history of sepsis due to cystitis CAD dyslipidemia history of colitis DM Plan continue Zyvox and Merrem day 3 and will follow up final wound cx will continue to monitor clinically follow up further plans of Podiatry
[2018-11-16] MEDS: INSULIN GLARGINE 100 UNIT/ML SC SCH (21:59)
[2018-11-16 23:16] VITALS: O2SAT 95
--- NOTE | 2018-11-17 02:36 | PN ---
DATE: 11/16/2018 SUBJECTIVE: The patient is a 68-year-old female. The patient was seen and examined at the bedside on 11/16/2018, looking comfortable, tolerating food very well, has little bit of diarrhea. I stopped her Eliquis. Diet was okay. Sleep was okay. Feeling more strong. PHYSICAL EXAMINATION VITAL SIGNS: Temperature 97.9, pulse 58, respiratory rate 20, blood pressure 130/76, pulse oximetry 97. HEENT: Head: Normocephalic, atraumatic. Eyes: PERRLA. Extraocular muscles are intact. Conjunctivae clear. Nose patent. NECK: Supple. No carotid bruit. No JVD or thyromegaly. CHEST: Bilaterally symmetrical. HEART: S1 and S2 positive. LUNGS: Clear to auscultation. ABDOMEN: Soft. Bowel sounds present. No organomegaly. EXTREMITIES: No edema. No cyanosis. NEUROLOGIC: The patient is awake and alert. Moving all 4 extremities. No focal deficit. MEDICATIONS: Lipitor, Neurontin, hydrochlorothiazide, Merrem, Zyvox, dextrose, insulin. LABORATORY DATA: White blood cell 8.9, hemoglobin 12.1, hematocrit 36.4, platelets 289. Sodium 133, potassium 4.7, BUN 25, creatinine 0.9, glucose 180. ASSESSMENT AND PLAN: Ms. Harmony Sequeira is a 68-year-old lady with insulin-dependent diabetes mellitus, not controlled; hyperchloremia; has first toe skin , which appears infected associated with first toe minimally displaced fracture on the right foot, MRI on 11/08/2018 did not show any osteomyelitis; history of sepsis due to cystitis; coronary artery disease; dyslipidemia; history of colitis; diabetes mellitus. Continue Zyvox and Merrem, deep venous thrombosis , and we will follow up final wound cultures. Continue monitoring clinically. Followup further plans of Podiatry. I reviewed notes, Podiatry notes. Repeat labs. We will follow up. Ramya Proctor MD
[2018-11-17] MEDS: Meropenem IV 1 gm in NS 1 GM/50 ML BAG IVPB SCH ×2 (06:02→14:37)
[2018-11-17 08:06] VITALS: PULSE 89; RESP 20; TEMP 98
[2018-11-17] MEDS: Linezolid 600 mg in D5W 300 ml 600 MG/300 ML BAG IVPB SCH (09:08)
[2018-11-17] MEDS: SITAGLIPTIN METFORMIN PO SCH ×2 (09:09→17:28)
[2018-11-17] MEDS: LINZESS PO SCH (09:10)
[2018-11-17 09:19] VITALS: BP 120/65
[2018-11-17] MEDS: INSULIN LISPRO 100 UNIT/ML SC SCH ×3 (09:27→17:18)
--- NOTE | 2018-11-17 13:41 | CP.PCM.PN ---
Subjective - Date & Time of Evaluation Date of Evaluation: 11/17/18 Time of Evaluation: 09:15 - Subjective Subjective: No fevers, not in distress, less pain in the foot. Objective - Vital Signs/Intake and Output Vital Signs (last 24 hours): Temp Pulse Resp BP Pulse Ox 97.5 F L 92 H 18 123/72 94 L 11/16/18 14:00 11/16/18 14:00 11/16/18 14:00 11/16/18 14:00 11/16/18 14:00 Intake and Output: 11/16/18 11/16/18 06:59 18:59 Intake Total 540 Output Total 0 Balance 540 - Medications Medications: Current Medications Acetaminophen (Tylenol 325mg Tab) 650 mg PO Q4H PRN PRN Reason: pain fever Atorvastatin Calcium (Lipitor) 10 mg PO DIN [facility] Last Admin: 11/15/18 17:24 Dose: 10 mg Dextrose (Dextrose 50% Inj) 0 ml IV STAT PRN; Protocol PRN Reason: Hypoglycemia Protocol Dextrose (Dextrose 50% Inj) 0 ml IV STAT PRN; Protocol PRN Reason: Hypoglycemia Protocol Gabapentin (Neurontin) 300 mg PO TID [facility]; Protocol Last Admin: 11/16/18 15:00 Dose: 300 mg Home Med (Home Med) 1 unit PO DAILY [facility] Last Admin: 11/16/18 10:40 Dose: 1 unit Home Med (Home Med) 1 unit PO BID [facility] Last Admin: 11/16/18 10:41 Dose: 1 unit Home Med (Home Med) 50 unit SC HS [facility] Last Admin: 11/15/18 21:31 Dose: 50 unit Home Med (Home Med) 15 unit SC TID [facility] Last Admin: 11/16/18 11:50 Dose: 15 unit Hydrochlorothiazide (Microzide) 12.5 mg PO DAILY [facility] Last Admin: 11/16/18 10:34 Dose: 12.5 mg Sodium Chloride (Sodium Chloride 0.9%) 1,000 mls @ 100 mls/hr IV .Q10H [facility] Last Admin: 11/14/18 05:05 Dose: 100 mls/hr Meropenem (Merrem Iv 1 Gm Premix) 1 gm in 50 mls @ 12.5 mls/hr IVPB Q8 [facility]; Protocol Stop: 11/23/18 06:01 Last Admin: 11/16/18 14:59 Dose: 12.5 mls/hr Linezolid (Zyvox 600mg/300ml D5w) 600 mg in 300 mls @ 200 mls/hr IVPB Q12 [facility]; Protocol Stop: 11/23/18 10:01 Last Admin: 11/16/18 10:33 Dose: 200 mls/hr Dextrose (Dextrose 5% In Water 1000 Ml) 1,000 mls @ 0 mls/hr IV .Q0M PRN; Protocol PRN Reason: Hypoglycemia Protocol Dextrose (Dextrose 5% In Water 1000 Ml) 1,000 mls @ 0 mls/hr IV .Q0M PRN; Protocol PRN Reason: Hypoglycemia Protocol Montelukast Sodium (Singulair) 10 mg PO DAILY [facility] Last Admin: 11/16/18 10:34 Dose: 10 mg Ramipril (Altace) 2.5 mg PO DAILY [facility] Last Admin: 11/16/18 10:39 Dose: 2.5 mg - Labs Labs: 11/16/18 06:30 11/16/18 06:30 - Constitutional Appears: Chronically Ill - Head Exam Head Exam: NORMAL INSPECTION - Respiratory Exam Respiratory Exam: Decreased Breath Sounds - Cardiovascular Exam Cardiovascular Exam: +S1, +S2 - GI/Abdominal Exam GI & Abdominal Exam: Soft. absent: Tenderness - Extremities Exam Additional comments: right foot with dressings in place Assessment and Plan - Assessment and Plan (Free Text) Plan: Assessment 1st toe skin and skin structure infection associated with 1st toe minimal fracture on the right foot; MRI on 11/08/2018 did not show osteomyelitis history of sepsis due to cystitis CAD dyslipidemia history of colitis DM Plan continue Zyvox and Merrem day 4 - wound cx have been negative will continue to monitor clinically discussed with Dr. Dickinson - may de-escalate to PO antibiotics but will get EKG first to make sure QTc is not prolonged - if QTc normal, may use PO doxycycline and PO Levaquin for 3-4 weeks with outpatient follow up with Dr. Dickinson
--- NOTE | 2018-11-17 15:32 | CP.PCM.PN ---
Subjective - Date & Time of Evaluation Date of Evaluation: 11/17/18 Time of Evaluation: 15:29 - Subjective Subjective: Podiatry Progress Note: Dr. Dickinson 68F patient seen and evaluated for R hallux proximal phalanx fracture. Patient is sitting bedside and in NAD. Patient states that she wants to go home to take care of her son. Denies any pain to the area. Denies N/V/F/SOB/CP Objective - Vital Signs/Intake and Output Vital Signs (last 24 hours): Temp Pulse Resp BP Pulse Ox 98 F 89 20 120/65 95 11/17/18 06:00 11/17/18 06:00 11/17/18 06:00 11/17/18 09:08 11/17/18 06:00 Intake and Output: 11/17/18 11/17/18 06:59 18:59 Intake Total 400 Balance 400 - Medications Medications: Current Medications Acetaminophen (Tylenol 325mg Tab) 650 mg PO Q4H PRN PRN Reason: pain fever Atorvastatin Calcium (Lipitor) 10 mg PO DIN [facility] Last Admin: 11/16/18 18:29 Dose: 10 mg Dextrose (Dextrose 50% Inj) 0 ml IV STAT PRN; Protocol PRN Reason: Hypoglycemia Protocol Dextrose (Dextrose 50% Inj) 0 ml IV STAT PRN; Protocol PRN Reason: Hypoglycemia Protocol Gabapentin (Neurontin) 300 mg PO TID [facility]; Protocol Last Admin: 11/17/18 14:37 Dose: 300 mg Home Med (Home Med) 1 unit PO DAILY [facility] Last Admin: 11/17/18 09:10 Dose: 1 unit Home Med (Home Med) 1 unit PO BID [facility] Last Admin: 11/17/18 09:09 Dose: 1 unit Home Med (Home Med) 50 unit SC HS [facility] Last Admin: 11/16/18 21:59 Dose: 50 unit Home Med (Home Med) 15 unit SC TID [facility] Last Admin: 11/17/18 14:38 Dose: 15 unit Hydrochlorothiazide (Microzide) 12.5 mg PO DAILY [facility] Last Admin: 11/17/18 09:08 Dose: 12.5 mg Sodium Chloride (Sodium Chloride 0.9%) 1,000 mls @ 100 mls/hr IV .Q10H [facility] Last Admin: 11/14/18 05:05 Dose: 100 mls/hr Meropenem (Merrem Iv 1 Gm Premix) 1 gm in 50 mls @ 12.5 mls/hr IVPB Q8 [facility]; Protocol Stop: 11/23/18 06:01 Last Admin: 11/17/18 14:37 Dose: 12.5 mls/hr Linezolid (Zyvox 600mg/300ml D5w) 600 mg in 300 mls @ 200 mls/hr IVPB Q12 [facility]; Protocol Stop: 11/23/18 10:01 Last Admin: 11/17/18 09:08 Dose: 200 mls/hr Dextrose (Dextrose 5% In Water 1000 Ml) 1,000 mls @ 0 mls/hr IV .Q0M PRN; Protocol PRN Reason: Hypoglycemia Protocol Dextrose (Dextrose 5% In Water 1000 Ml) 1,000 mls @ 0 mls/hr IV .Q0M PRN; Protocol PRN Reason: Hypoglycemia Protocol Montelukast Sodium (Singulair) 10 mg PO DAILY [facility] Last Admin: 11/17/18 09:08 Dose: 10 mg Ramipril (Altace) 2.5 mg PO DAILY [facility] Last Admin: 11/17/18 09:08 Dose: 2.5 mg - Labs Labs: 11/16/18 06:30 11/16/18 06:30 - Constitutional Appears: Well, Non-toxic, No Acute Distress - Head Exam Head Exam: ATRAUMATIC, NORMOCEPHALIC - Extremities Exam Additional comments: RLE Focused Exam Vasc: DP and PT 2/4 bilaterally, Cap refill less than 3 seconds to all digits, Temp gradient is warm to cool from proximal to distal, +1 edema noted at the right hallux extending proximally to the level of the 1st MTPJ Ortho: No pain on palpation the right hallux. Muscle power intact 5/5 to all groups Neuro: Gross sensation intact, protective sensation diminished Derm: No open lesions, no erythema, no drainage, no purulence, no probe to bone, no malodor, no clinical signs of active infection - Neurological Exam Neurological Exam: Alert, Awake, Oriented x3 - Psychiatric Exam Psychiatric exam: Normal Affect, Normal Mood Assessment and Plan - Assessment and Plan (Free Text) Assessment: 68F patient seen and evaluated for R hallux proximal phalanx fracture. Plan: Patient seen and evaluated at bedside VSS Right foot X-ray: minimally displaced fracture of R proximal phalanx Right foot MRI: minimally displaced fracture proximal phalanx big toe, no evidence of OM Per discussion with Dr. Pollard, patient to be d/c on Levaquin and Doxycycline No dressing applied to R foot, no dressing needed at this time No podiatric surgical intervention at this time Patient stable from podiatry standpoint Patient to follow up in wound care clinic with Dr. Dickinson this week
[2018-11-17] MEDS ORDERED: Sodium Bicarbonate (8.4%) 50 Meq Syringe IVP ONE (18:35)
--- NOTE | 2018-11-18 03:02 | CON ---
DATE: 11/17/2018 CONSULT SERVICE: Cardiology. REASON FOR CONSULTATION: Cardiac evaluation, abnormal EKG for medication that can potentiate prolonged QT interval. BRIEF CLINICAL HISTORY: This is a 68-year-old female with past medical significant for diabetes for many years, hypertension, hyperlipidemia, and diabetic neuropathy, who admitted for diabetic foot and being treated with antibiotic recently aztreonam and Zyvox. The patient had been planned to give in addition to Zyvox and Merrem to change to Levaquin, but they wanted to see the normal QTc interval before Cardiology consult was called. The patient denies any chest pain. Denies any shortness of breath. Denies any palpitation. PAST MEDICAL HISTORY: Significant for diabetes for many years; hypertension; hyperlipidemia; nonobstructive coronary artery disease, status post cardiac catheterization 10 years ago; diabetic neuropathy; gastroesophageal reflux; dysphagia; history of hemorrhoid; and history of constipation. PAST SURGICAL HISTORY: Significant for bilateral cataract surgery and history of cardiac catheterization 10 years ago. FAMILY HISTORY: Significant for coronary artery disease. SOCIAL HISTORY: Denies smoking. Denies any history of alcohol abuse. ALLERGIES: PENICILLIN AND VANCOMYCIN. HOME MEDICATIONS: The patient at home was taking metformin, Janumet combination 50/1 g twice a day, ramipril, Altace 2.5 mg daily, Linzess for constipation, Humalog insulin, doxycycline, atorvastatin, and Tylenol. Here the patient is on antibiotic Zyvox that is linezolid 600 mg intravenously every 12 hours as well as meropenem, brand name Merrem 1 g every 8 hours. REVIEW OF SYSTEMS: As per HPI. PHYSICAL EXAMINATION: VITAL SIGNS: Height of the patient 5 feet 2 inches, weight of the patient 150 pounds, body mass index 29.3 kg/m2. Temperature afebrile, heart rate 89, and blood pressure 120/65. HEENT: PERRLA. Extraocular muscles intact. NECK: Supple. No carotid bruit or thyromegaly. CHEST: Clear to auscultation. HEART: S1 and S2 regular. ABDOMEN: Soft. EXTREMITIES: Clubbing and cyanosis negative. LABORATORY DATA: Blood workup; WBC 6.6, hemoglobin , hematocrit of 33.5, and platelet count of 294. Chemistry shows last done; sodium 139, potassium 3.8, chloride 106, carbon dioxide , anion gap of 9, BUN 13 and creatinine of 0.6. TSH 1.86. Hemoglobin A1c 11.4. Total cholesterol 156, LDL 74, HDL 52 and triglycerides 96. EKG shows normal sinus, corrected QTc is 442 and otherwise 350. QTc 350 milliseconds and corrected is 442. The patient had echocardiography done way back in 2014. Previous cardiac workup as follows: The patient had echocardiography done on 12/20/2014, borderline 4-chamber dilatation, ejection fraction 45%, mild MR, mild TR, and RV systolic pressure of 37. The patient's last stress test on 12/20/2014 that shows ejection fraction 58%, normal myocardial perfusion study. IMPRESSION: A 68-year-old female with past medical history significant for diabetes, hypertension, hyperlipidemia, diabetic neuropathy, admitted with nonhealing ulcer diabetic foot, treated with meropenem and Zyvox. Plan is to give her another boost of antibiotic for prolonged QT interval, so Cardiology consult was called. The patient denies any chest pain, shortness of breath or any palpitation. Noninvasive workup on 12/20/2014, normal stress test, but echo at that time showed mild 4-chamber dilatation, ejection fraction 45%. The patient with known history of nonischemic cardiomyopathy, history of paroxysmal atrial fibrillation, and history of cardiac catheterization 10 years ago at [facility] showed negative. EKG shows pretty benign. RECOMMENDATIONS: Continue antibiotic. The patient okay to start antibiotics. The patient has normal QTc interval, but because of risk stratification suggest echo and stress, we discussed with the patient and the patient okayed to be discharged on p.o. antibiotics as per ID and Dr. Proctor, but we will schedule stress test in 4 weeks because of the multiple risk factors including diabetic and very poorly controlled diabetic manifested by hemoglobin A1c of 11.4, so we will suggest a stress test as an outpatient. Discussed with the patient. Discussed with the patient's family sitting there, agreed and understand that we will repeat the stress test as outpatient. Last stress test dated 12/20/2014 was essentially negative. History of cardiac catheterization 10 years ago is essentially normal as per patient, though heart muscles are weak. Thank you Dr. Proctor for providing us the opportunity in taking care of patient, Harmony Sequeira. Logan Proctor MD [facility] # [id number]
--- NOTE | 2018-11-18 11:12 | CARD ---
APPROVED REPORT Date of service: 11/17/2018 EKG Measurement Heart [id number] <Conclusion> Normal sinus rhythm New T wave inversions V 3 - 6 c/w ECG 12/13/17
== END 2018-11-17 21:14 | disposition home or self-care (01) | DRG 603 ==
LOC: ED 18:06 → ERH 21:37 → 5RSO 23:53 → OBSVTOIN 11-15 22:43
PROVIDERS: ADMIT Internal Medicine; ATTEND Internal Medicine
DX: L03.031 Cellulitis of right toe (principal); S92.411A Displaced fracture of proximal phalanx of right great toe, initial encounter for closed fracture; E11.40 Type 2 diabetes mellitus with diabetic neuropathy, unspecified; Z79.84 Long term (current) use of oral hypoglycemic drugs; E86.0 Dehydration; Z79.4 Long term (current) use of insulin; E11.65 Type 2 diabetes mellitus with hyperglycemia; E78.00 Pure hypercholesterolemia, unspecified; E78.5 Hyperlipidemia, unspecified; I11.0 Hypertensive heart disease with heart failure; I50.9 Heart failure, unspecified; I25.10 Atherosclerotic heart disease of native coronary artery without angina pectoris; I45.81 Long QT syndrome; K21.9 Gastro-esophageal reflux disease without esophagitis; K59.00 Constipation, unspecified; Z82.49 Family history of ischemic heart disease and other diseases of the circulatory system; Z83.3 Family history of diabetes mellitus; Z88.0 Allergy status to penicillin; Z98.42 Cataract extraction status, left eye; Z98.41 Cataract extraction status, right eye; Z88.1 Allergy status to other antibiotic agents; Z87.892 Personal history of anaphylaxis

== ENCOUNTER 2018-12-17 08:56 | Outpatient (CLI) | payer BC, MEDICARE | END 2018-12-17 08:57 | disposition home or self-care (01) | LOC: CARDIO 08:56 ==